=== PATIENT | female | born 1960 | race Caucasian/White ===

== ENCOUNTER → 2017-01-04 | Outpatient (CLI) | payer OTHER ==
[~2017-01-04] MED LIST: IBUP600T26 PO; NORCOTAB PO; OXYB5TA PO; SIMV20TA2 PO; calcium with vit D OR
--- NOTE | 2017-01-08 09:23 | SLEEPCENT ---
DATE OF PROCEDURE: 01/04/2017 ORDERED BY: Gwendolyn Page Nocturnal polysomnography was performed for evaluation of sleep apnea syndrome symptoms in this patient with excessive somnolence and nonrestorative sleep. 7 hours and 18 minutes of data were reviewed. There were 324 minutes of sleep identified. Sleep latency was normal at 12.5 minutes Rapid eye movement (REM) latency was prolonged at 205 minutes. Sleep architecture showed fragmentation. Overall sleep efficiency was 75.8% but there was reduction in REM time. The patient's EKG showed a sinus rhythm with an average heart rate of 64 beats per minute. EEG showed some coarsening and alpha intrusion into non-REM stages. No focal events were seen. There were 39 respiratory events identified of 10 seconds in duration or greater for an apnea-hypopnea index of 6.9. The events were primarily obstructive not stage or positionally related. Arousals from respiratory events occurred 6.1 times per hour and oxygen desaturations were seen into the 80s. There was also significant limb activity. Three trains of 30 events were seen. Limb movement arousal index was borderline at 5.7. IMPRESSION: Mild obstructive sleep apnea syndrome (G47.33). Apnea-hypopnea index 6.9. RECOMMENDATION: Given the oxygen desaturations identified, referral back to the sleep disorder center for pressure therapy is recommended. In the interim, alcohol and sedative avoidance should be practiced and caution exercised during operation of motor vehicles.
== END ==
LOC: M SLEEP 19:54
PROVIDERS: ATTEND Nurse Practitioner Adult Health
DX: G47.30 Sleep apnea, unspecified (principal)

== ENCOUNTER → 2017-01-04 | Outpatient (REF) | payer OTHER | LOC: M SMT 12:58 | PROVIDERS: ATTEND Specialist | DX: N32.81 Overactive bladder (principal) ==

== ENCOUNTER → 2017-01-20 | Outpatient (REF) | payer OTHER | LOC: M LABDRAW1 11:57 | PROVIDERS: ATTEND Orthopaedic Surgery | DX: M75.31 Calcific tendinitis of right shoulder (principal) ==

== ENCOUNTER → 2017-01-28 | Day surgery (SDC) | payer OTHER ==
[~2017-01-28] VITALS: Ht 167.6 cm; Wt 145.1 kg
[~2017-01-28] MED LIST changes: +LIDOCAINE 2% 5ML JELLY UROJET As Ordered ONE; +LIDOCAINE 2% INJ 100 MG/5 ML SDV (FOR ANES.) As Ordered ONE; +LIDOCAINE 2% INJ 100 MG/5 ML SYRINGE As Ordered ONE; +LR 1,000 ML IV ONE; +MIDAZOLAM INJ 2 MG/2 ML VIAL (J2250) As Ordered ONE; +MYRB50TA PO; +PROPOFOL 200 MG/20 ML VIAL As Ordered ONE; +SYNT50TA PO; +VITA100037 PO; +fentaNYL 100 MCG/2 ML INJECTION (J3010) As Ordered ONE
[2017-01-28 16:00] VITALS: BP 141/78
--- NOTE | 2017-01-29 22:12 | RO ---
DATE OF PROCEDURE: 01/28/2017 PREOPERATIVE DIAGNOSIS: Small mesh erosion into the bladder. POSTOPERATIVE DIAGNOSIS: Mesh no longer seen and it is possible that through cystoscopy in the office this allowed that piece to pop out from the distention of the bladder. PROCEDURE: Cystoscopy and hydrodistention. SURGEON: Dr. Tianna Craft ANESTHESIA: MAC. MEDICATIONS: Ancef 2 grams preoperatively. INDICATIONS FOR PROCEDURE: The patient is a 56-year-old female who has been seen for refractory urinary urgency, frequency, urge incontinence, nocturia, nocturnal enuresis. She had a cystoscopy as part of the workup since she had a pelvic prolapse repair in the past. On her right lateral wall on the local cystoscopy, a small mesh extrusion was seen into the bladder it was decided to bring her to the operating room for cystoscopy and removal of this cystoscopically to try first. All options, alternatives, risks, and benefits were discussed with the patient and informed consent was obtained. DESCRIPTION OF PROCEDURE: The patient was brought into the operating room and MAC was given. She was placed in the lithotomy position and careful attention was paid that her pressure points were well padded and protected. She was prepped and draped in the usual fashion. Next, a #21-[place] cystoscope was inserted. The urethra was noted to be open without any evidence of lesions, strictures or erosions and/or extrinsic. Upon entering the bladder, both ureteral orifices were seen. I spent quite a lot of time looking with both the 30 degrees and 70 degrees lens and no longer can see the mesh extrusion, even though I have a picture of it in E clinical. It is possible that through the distending the bladder during a local cystoscopy that this piece of mesh came undone and that this area of the bladder now appears to be healed. I did not even appreciate any abnormal areas of bladder. At this point, I continued to hydrodistend the bladder thinking that this may help with her urgency and urge incontinence even though we were planning on InterStim in the future. She will followup with us to plan the InterStim in the office. She will most likely require local cystoscopy again in the future.
== END ==
LOC: M SDC 11:53
PROVIDERS: ATTEND Specialist
DX: T83.718A Erosion of other implanted mesh to organ or tissue, initial encounter (principal); Y83.1 Surgical operation with implant of artificial internal device as the cause of abnormal reaction of the patient, or of later complication, without mention of misadventure at the time of the procedure; N39.41 Urge incontinence; N39.44 Nocturnal enuresis; R35.0 Frequency of micturition; R35.1 Nocturia; E03.9 Hypothyroidism, unspecified; E78.00 Pure hypercholesterolemia, unspecified; G47.30 Sleep apnea, unspecified; Z88.8 Allergy status to other drugs, medicaments and biological substances; Z79.899 Other long term (current) drug therapy

== ENCOUNTER → 2017-02-07 | Outpatient (CLI) | payer OTHER ==
[~2017-02-07] MED LIST changes: -LIDOCAINE 2% 5ML JELLY UROJET As Ordered ONE; -LIDOCAINE 2% INJ 100 MG/5 ML SDV (FOR ANES.) As Ordered ONE; -LIDOCAINE 2% INJ 100 MG/5 ML SYRINGE As Ordered ONE; -LR 1,000 ML IV ONE; -MIDAZOLAM INJ 2 MG/2 ML VIAL (J2250) As Ordered ONE; -PROPOFOL 200 MG/20 ML VIAL As Ordered ONE; -fentaNYL 100 MCG/2 ML INJECTION (J3010) As Ordered ONE
--- NOTE | 2017-02-09 22:36 | SLEEPCENT ---
DATE OF PROCEDURE: 02/07/2017 REFERRING PHYSICIAN: Gwendolyn Page Nocturnal polysomnography was performed for the titration of pressure therapy in this patient with obstructive sleep apnea syndrome, apnea-hypopnea index of 6.9. For testing, the patient was fit with a ResMed Quattro full face mask of small size. 4 cm of water pressure were applied to the circuit and the lights were extinguished. 8 hours and 24 minutes of data were reviewed. There were 408 minutes of sleep identified. Sleep latency was short at 7.5 minutes. Rapid eye movement (REM) latency was normal at 117 minutes. Sleep architecture improved over the course of the study. There were four to five REM periods appreciated. Overall sleep efficiency was 82%. The patient's EKG showed a sinus rhythm with an average heart rate of 62 beats per minute. EEG showed normal waveforms for awake and sleep. Respiratory events were fully palliated with CPAP at a pressure of +5. Remaining measures of sleep physiology were normal. IMPRESSION: Obstructive sleep apnea syndrome (G47.33). RECOMMENDATION: Nightly use of pressure therapy, 5 cm of water.
== END ==
LOC: M SLEEP 19:35
PROVIDERS: ATTEND Nurse Practitioner Adult Health
DX: G47.33 Obstructive sleep apnea (adult) (pediatric) (principal)

== ENCOUNTER → 2017-03-03 | Outpatient (REF) | payer OTHER ==
[~2017-03-03] MED LIST changes: +IBUP-1022 PO; -IBUP600T26 PO; +KEFL500C17 PO; -OXYB5TA PO; +OXYB5TAB10 PO; -VITA100037 PO; +VITA100067 PO; -calcium with vit D OR; +calcium with vit D PO
[2017-03-03 12:40] LABS: ALBUMIN 3.4 GM/DL (3.2-5.2); ALBUMIN/GLOBULIN RATIO 0.92 (1.00-1.93); ALKALINE PHOSPHATASE 91 U/L (45-117); ALT/SGPT 14 U/L (12-78); ANION GAP 7 MEQ/L (8-16); AST/SGOT 12 U/L (15-37); BILIRUBIN,TOTAL 0.5 MG/DL (0.2-1.0); BLOOD UREA NITROGEN 15 MG/DL (7-18); CALCIUM LEVEL 8.9 MG/DL (8.5-10.1); CARBON DIOXIDE LEVEL 26 MEQ/L (21-32); CHLORIDE LEVEL 110 MEQ/L (98-107); CHOLESTEROL LEVEL 141 MG/DL (<200); CREATININE FOR GFR 0.84 MG/DL (0.55-1.02); GLOMERULAR FILTRATION RATE > 60.0 (>51); GLUCOSE, FASTING 88 MG/DL (70-105); POTASSIUM SERUM 4.1 MEQ/L (3.5-5.1); SODIUM LEVEL 143 MEQ/L (136-145); TOTAL PROTEIN 7.1 GM/DL (6.4-8.2); TRIGLYCERIDES LEVEL 79 MG/DL (<150)
== END ==
LOC: M SFHCCLAY 09:09
PROVIDERS: ATTEND Nurse Practitioner
DX: J06.9 Acute upper respiratory infection, unspecified (principal)

== ENCOUNTER → 2017-03-28 | Outpatient (REF) | payer OTHER ==
[2017-03-28 17:59] LABS: ANION GAP 10 MEQ/L (8-16); BLOOD UREA NITROGEN 22 MG/DL (7-18); CALCIUM LEVEL 8.5 MG/DL (8.5-10.1); CARBON DIOXIDE LEVEL 26 MEQ/L (21-32); CHLORIDE LEVEL 107 MEQ/L (98-107); CREATININE FOR GFR 0.73 MG/DL (0.55-1.02); GLOMERULAR FILTRATION RATE > 60.0 (>51); GLUCOSE, FASTING 89 MG/DL (70-105); POTASSIUM SERUM 4.4 MEQ/L (3.5-5.1); SODIUM LEVEL 143 MEQ/L (136-145)
[2017-03-28 20:04] LABS: INR 1.01
[2017-03-28 20:22] LABS: MEAN CORPUSCULAR HEMOGLOBIN 27.8 pg (27.0-33.0); MEAN CORPUSCULAR HGB CONC 32.1 g/dl (32.0-36.5); MEAN CORPUSCULAR VOLUME 86.5 fl (80.0-96.0); RED CELL DISTRIBUTION WIDTH 14.8 % (11.5-14.5); WHITE BLOOD COUNT 6.7 K/mm3 (4.0-10.0)
== END ==
LOC: M LABSMT 10:49 → M LABDRAWC 11:00
PROVIDERS: ATTEND Specialist
DX: Z01.818 Encounter for other preprocedural examination (principal); N39.41 Urge incontinence; N32.81 Overactive bladder

== ENCOUNTER 2017-04-06 12:58 | Day surgery (SDC) | payer OTHER ==
[~2017-04-06] VITALS: Ht 167.6 cm; Wt 145.1 kg
[~2017-04-06 12:58] MED LIST changes: -KEFL500C17 PO
[2017-04-06] MEDS ORDERED: LR 1,000 ML IV ONE (13:30)
[2017-04-06] MEDS ORDERED: LIDOCAINE 1% SDV INJ 30 ML VIAL As Ordered ONE ×2 (15:41→17:05)
[2017-04-06] MEDS ORDERED: ceFAZolin 1GM INJ (J0690) As Ordered ONE (15:41)
[2017-04-06] MEDS ORDERED: PROPOFOL 200 MG/20 ML VIAL As Ordered ONE (16:17)
[2017-04-06] MEDS ORDERED: fentaNYL 100 MCG/2 ML INJECTION (J3010) As Ordered ONE ×2 (16:17→17:17)
[2017-04-06] MEDS ORDERED: MIDAZOLAM INJ 5 MG/ML VIAL (J2250) As Ordered ONE (16:17)
[2017-04-06] MEDS ORDERED: PERCOCET 5MG/325MG TAB PO ONE (18:30)
--- NOTE | 2017-04-06 18:31 | REP ---
REASON: Incontinence. Fluoroscopy time: 48 seconds. Two spot view of the sacral region were obtained in my absentia. There is curvilinear radiodensity in the pelvis entering from the posterior to the right of the midline. Signed by Alton Perez DO 04/06/2017 06:59 P
[2017-04-06 19:20] VITALS: BP 136/73
--- NOTE | 2017-04-07 21:08 | RO ---
DATE OF PROCEDURE: 04/06/2017 PREOPERATIVE DIAGNOSES: Severe urinary urgency and urge incontinence refractory to medical management. POSTOPERATIVE DIAGNOSES: Severe urinary urgency and urge incontinence refractory to medical management. PROCEDURE: Stage 1 of the InterStim device with placement of a neurostimulator lead on the left side, cystoscopy. SURGEON: Dr. Tianan Craft ANESTHESIA: Local with some IV sedation. MEDICATIONS: Ancef 2 grams preoperatively. DRAINS: None. FINDINGS: The patient had excellent anal bellowing and first toe movement at low thresholds in the operating room. INDICATIONS FOR PROCEDURE: The patient is a 56-year-old female with a longstanding history of urinary urgency and urge incontinence, which has been refractory to behavioral modification and medical management. We did an InterStim test in the office, but this did not work and she chose to come to the operating room for a staged procedure to see if this would any better. There was a question of mesh erosion on a cystoscopy on 01/12, but when she was brought to the operating room this was no longer visualized and we had decided to repeat cystoscopy today to make sure that no erosions in the bladder were seen. The patient has had urodynamic studies in June of 2016 which showed poor detrusor contractility, although she was able to empty completely. She did not like the risks of intravesical Botox and the possibility of needing a Cardenas catheter in the future so it was decided to proceed with the InterStim. PROCEDURE: The patient was brought into the operating room. Sequential compression devices and ELIAS stockings were in place. Next, she was placed in the lithotomy position and prepped and draped in the usual fashion. A 21-Macedonian cystoscope was inserted. The urethra was noted to be open without any evidence of lesions or strictures. Upon entering the bladder, both ureteral orifices were seen. There was no evidence of stones, erythematous patches, lesions, or foreign bodies. At this point, her bladder was emptied. She was then placed back on the stretcher and then placed back on the operating room table in the prone position. Careful attention was paid that her pressure points were well padded and protected. Next, she was prepped and draped in the usual fashion. 1% lidocaine was utilized for local anesthesia and using fluoroscopy we were able to Rex her midline spine and where her sacral notches were to know approximately where the S3 foramens were. At this point, I then placed the long needles first starting on the right hand side and was able to get into what looks like the S3 foramen, but we did not get very good bellowing or first tone movement until very high thresholds. We therefore decided to go to the right hand side. I was able to place a needle into what appeared to be the S3 foramen and we got excellent anal bellowing and first toe movement at very low levels. The needle appeared to be in very good placement on both the AP and lateral views. At this point a small incision was made and using the Seldinger technique the permanent neurostimulator lead was placed. This was then tested at 0, 1, 2 and 3 and had excellent bellowing and first toe movement on all four leads. The permanent lead was then tunneled across to the right upper buttocks and was attached to another lead which was then tunneled and removed separately. The incision was closed using viridiana. The patient's device was programmed and she will be seen in the office back on this Tuesday to see how the stage I has done. The patient tolerated the procedure well and was returned to the recovery room in stable condition.
== END 2017-04-06 19:25 | disposition home or self-care (01) ==
LOC: M SDC 12:58
PROVIDERS: ATTEND Specialist
DX: N39.41 Urge incontinence (principal); N32.81 Overactive bladder; E78.5 Hyperlipidemia, unspecified; E03.9 Hypothyroidism, unspecified; E55.9 Vitamin D deficiency, unspecified; G47.30 Sleep apnea, unspecified; Z79.899 Other long term (current) drug therapy; Z88.8 Allergy status to other drugs, medicaments and biological substances; Z91.048 Other nonmedicinal substance allergy status
CPT/HCPCS: 64581; 77002; C1767

== ENCOUNTER 2017-04-11 12:22 | Day surgery (SDC) | payer OTHER ==
[~2017-04-11] VITALS: Ht 167.6 cm; Wt 145.1 kg
[2017-04-11] MEDS ORDERED: LR 1,000 ML IV ONE (12:45)
[2017-04-11] MEDS ORDERED: PROPOFOL 200 MG/20 ML VIAL As Ordered ONE (16:32)
[2017-04-11] MEDS ORDERED: LIDOCAINE 2% INJ 100 MG/5 ML SDV (FOR ANES.) As Ordered ONE (16:32)
[2017-04-11] MEDS ORDERED: dexameTHASONE 4 MG/ML 1ML VIAL (J1100) As Ordered ONE (16:33)
[2017-04-11] MEDS ORDERED: ONDANSETRON 4MG/2ML VIAL (J2405) As Ordered ONE (16:33)
[2017-04-11] MEDS ORDERED: KETOROLAC 60 MG/2 ML VIAL (J1885) As Ordered ONE (16:33)
[2017-04-11] MEDS ORDERED: fentaNYL 100 MCG/2 ML INJECTION (J3010) As Ordered ONE (16:34)
[2017-04-11] MEDS ORDERED: MIDAZOLAM INJ 2 MG/2 ML VIAL (J2250) As Ordered ONE (16:34)
[2017-04-11] MEDS ORDERED: LIDOCAINE 1% SDV INJ 30 ML VIAL As Ordered ONE (16:35)
[2017-04-11] MEDS ORDERED: BACITRACIN PWD 50,000 UNITS VIAL As Ordered ONE (17:11)
[2017-04-11] MEDS ORDERED: KEFL500C17 PO (18:07)
[2017-04-11 18:15] VITALS: BP 157/70
--- NOTE | 2017-04-11 23:16 | RO ---
DATE OF PROCEDURE: 04/11/2017 PREOPERATIVE DIAGNOSIS: Urinary urgency, frequency and urge incontinence. POSTOPERATIVE DIAGNOSIS: Urinary urgency, frequency and urge incontinence. PROCEDURE: Stage II with InterStim with placement of an implantable pulse generator. SURGEON: Dr. Tianna Craft TECHNICIAN'S HELPER: None. ANESTHESIA: Local with some IV sedation. MEDICATIONS: Ancef 2 grams preoperatively. INDICATIONS FOR PROCEDURE: The patient is a 56-year-old female who underwent stage I InterStim in the operating room on 04/06/2017. She found that she was voiding much less frequently during the day and her incontinence episodes were less than 50% of what they were. She still had some nocturia last night, but the other night it was down to two times. She was feeling the stimulation in the vaginal area. At this point, she had decided that she wanted to proceed with stage II, which was placement of the implantable pulse generator. All options, alternatives, risks and benefits was discussed and informed consent was obtained. DESCRIPTION OF PROCEDURE: The patient was brought into the operating room. Sequential compression devices were in place. She was placed in the prone position and prepped and draped in the usual fashion after the viridiana had been removed. Next, 1% lidocaine was injected over her right upper buttocks and an incision was made over the previous incision making it slightly larger for the implantable pulse generator to fit. At this point the neurostimulator electrode was found and the percutaneous connection of was removed. The implantable pulse generator was then placed onto the neurostimulator electrode and screwed into place. Castro retractors were utilized to go down gluteal fascia. A pocket was made over gluteal fascia for the implantable pulse generator and this was put into place. Copious antibiotic irrigation was utilized and subcuticular tissue was closed using a #2-0 chromic suture and skin was closed using viridiana. The implantable pulse general generator was flat to the gluteal fascia without room for movements and subcutaneous tissue was closed right over this. Once the viridiana were placed, a Band-Aid was placed and the patient was returned to the recovery room in stable condition. Impedance was also done on the implantable pulse generator and was within normal limits and the [place] [facility] representative will be programming the device prior to her discharge.
== END 2017-04-11 18:30 | disposition home or self-care (01) ==
LOC: M SDC 12:22
PROVIDERS: ATTEND Specialist
DX: N39.46 Mixed incontinence (principal); R35.0 Frequency of micturition; E03.9 Hypothyroidism, unspecified; E78.5 Hyperlipidemia, unspecified; E55.9 Vitamin D deficiency, unspecified; G47.30 Sleep apnea, unspecified; Z79.899 Other long term (current) drug therapy; Z88.8 Allergy status to other drugs, medicaments and biological substances; Z91.048 Other nonmedicinal substance allergy status
CPT/HCPCS: 64590; C1767; C1787

== ENCOUNTER → 2017-05-03 | Outpatient (REF) | payer OTHER ==
[~2017-05-03] MED LIST changes: +KEFL500C17 PO
== END ==
LOC: M SFHCCLAY 14:35
PROVIDERS: ATTEND Nurse Practitioner
DX: R35.0 Frequency of micturition (principal)

== ENCOUNTER → 2017-07-08 | Outpatient (CLI) | payer OTHER ==
--- NOTE | 2017-07-08 12:56 | REP ---
Digital screening bilateral mammography with CAD: Comparison mammography July 02, 2016, June 05, 2015, and January 07, 2014. Mammographic findings: There are two needle biopsy marker clips again seen projecting in the left breast. Each of these is adjacent to a stable nodule. No other significant abnormality is seen on the left. On the right, there is a grouping of microcalcifications projecting in the inferior and lateral quadrant of the right breast, which is becoming more numerous. These merit further evaluation. Diagnostic right breast mammography is recommended. The right breast is otherwise unchanged. Impression: BIRADS category 0 incomplete. Additional imaging and/or prior images needed. Grouping of microcalcifications inferiorly and lateral in the right breast merits further evaluation. Diagnostic right breast mammography recommended. BI-RADS/ACR category 0 mammogram, incomplete. Additional imaging and/or prior mammograms for comparison. This mammogram was interpreted with the aid of an FDA-approved computer-aided detection system. The patient states she/he had a clinical breast exam in April 2017. The patient letter being requested is m# 0.
== END ==
LOC: M WHC 10:01
PROVIDERS: ATTEND Nurse Practitioner Women's Health
DX: Z12.31 Encounter for screening mammogram for malignant neoplasm of breast (principal); R92.0 Mammographic microcalcification found on diagnostic imaging of breast

== ENCOUNTER → 2017-07-13 | Outpatient (CLI) | payer OTHER ==
--- NOTE | 2017-07-13 10:01 | REP ---
DIAGNOSTIC MAMMOGRAM RIGHT BREAST: Multiple magnification views of the right breast are performed. Correlation made with recent mammogram of 07/08/2017 and compared to multiple other prior exams. There are increasing tiny calcifications posteriorly and inferiorly in the right breast. Several faint, tiny calcifications appear new laterally in this cluster, best seen on the magnified CC view. Stereotactic biopsy is recommended. This may prove difficult due to their posterior location. IMPRESSION: ACR 4 suspicious. Increasing tiny pleomorphic microcalcifications posteriorly and inferiorly in the right breast. Recommend stereotactic biopsy. This may prove difficult due to their posterior location. BI-RADS/ACR category 4 mammogram. Suspicious abnormality - biopsy should be considered. Usually requires biopsy. This mammogram was interpreted with the aid of an FDA-approved computer-aided detection system. A. Negative x-ray reports should not delay biopsy if a dominant or clinically suspicious mass is present. B. Four to eight percent of cancers are not identified by x-ray. C. Adenosis and dense breasts may obscure an underlying neoplasm. The patient letter being requested is M4. Signed by Gabriele Almonte MD 07/13/2017 11:48 A
== END ==
LOC: M RAD 08:02
PROVIDERS: ATTEND Nurse Practitioner Women's Health
DX: Z12.31 Encounter for screening mammogram for malignant neoplasm of breast (principal)

== ENCOUNTER → 2017-07-28 | Outpatient (CLI) | payer OTHER ==
[~2017-07-28] MED LIST changes: +LIDOCAINE 1% MDV 20ML VIAL As Ordered ONE
== END ==
LOC: M RADPRO 12:51
PROVIDERS: ATTEND Surgery
DX: R92.0 Mammographic microcalcification found on diagnostic imaging of breast (principal); Z53.9 Procedure and treatment not carried out, unspecified reason

== ENCOUNTER → 2017-09-06 | Outpatient (REF) | payer OTHER ==
[2017-09-06 11:48] LABS: BASO # 0.1 10^3/uL (0.0-0.2); BASO % 0.9 % (0.0-1.0); EOS # 0.3 10^3/uL (0.0-0.50); HEMATOCRIT 37.7 % (36.0-47.0); IMMATURE GRANULOCYTE % 0.3 % (0-0); LYMPH % 28.1 % (24.0-44.0); MEAN CORPUSCULAR HEMOGLOBIN 27.1 pg (27.0-33.0); MEAN CORPUSCULAR HGB CONC 31.8 g/dl (32.0-36.5); MEAN CORPUSCULAR VOLUME 85.1 fl (80.0-96.0); MONO # 0.6 10^3/uL (0.0-0.8); MONO % 7.9 % (0.0-5.0); NEUTROPHILS # 4.1 10^3/uL (1.8-7.7); NEUTROPHILS % 58.8 % (36.0-66.0); PLATELET COUNT, AUTOMATED 262 10^3/uL (150-450); RED BLOOD COUNT 4.43 10^6/uL (4.00-5.40); RED CELL DISTRIBUTION WIDTH 14.9 % (11.5-14.5)
[2017-09-06 12:12] LABS: ALBUMIN 3.2 GM/DL (3.2-5.2); ALBUMIN/GLOBULIN RATIO 0.86 (1.00-1.93); ALKALINE PHOSPHATASE 90 U/L (45-117); ALT/SGPT 14 U/L (12-78); ANION GAP 9 MEQ/L (8-16); AST/SGOT 18 U/L (7-37); BILIRUBIN,TOTAL 0.5 MG/DL (0.2-1.0); BLOOD UREA NITROGEN 17 MG/DL (7-18); CALCIUM LEVEL 8.4 MG/DL (8.5-10.1); CARBON DIOXIDE LEVEL 27 MEQ/L (21-32); CHLORIDE LEVEL 108 MEQ/L (98-107); CHOLESTEROL LEVEL 163 MG/DL (<200); CHOLESTEROL RISK RATIO 2.672 (<5); CREATININE FOR GFR 0.69 MG/DL (0.55-1.02); FREE T4 1.25 NG/DL (0.76-1.46); GLOMERULAR FILTRATION RATE > 60.0 (>51); GLUCOSE, FASTING 83 MG/DL (70-105); HDL CHOLESTEROL 61 MG/DL (>40); LDL CHOLESTEROL 83.6 MG/DL (<100); NON-HDL-C 102 MG/DL; SODIUM LEVEL 144 MEQ/L (136-145); TOTAL PROTEIN 6.9 GM/DL (6.4-8.2); TRIGLYCERIDES LEVEL 92 MG/DL (<150)
[2017-09-06 12:17] LABS: TOTAL 25(OH) VITAMIN D 42.3 NG/ML (30.0-100.0)
== END ==
LOC: M SFHCCLAY 09:15
DX: E78.5 Hyperlipidemia, unspecified (principal); E03.9 Hypothyroidism, unspecified; N32.81 Overactive bladder; E55.9 Vitamin D deficiency, unspecified
CPT/HCPCS: 84443

== ENCOUNTER → 2017-12-12 | Outpatient (REF) | payer OTHER | LOC: M SFHCCLAY 11:54 | DX: R35.0 Frequency of micturition (principal) | CPT/HCPCS: 87186 ==

== ENCOUNTER → 2018-03-30 | Outpatient (REF) | payer OTHER | LOC: M SFHCCLAY 14:10 | DX: R35.0 Frequency of micturition (principal) | CPT/HCPCS: 87186 ==

== ENCOUNTER → 2018-06-09 | Outpatient (REF) | payer OTHER | LOC: M SMT 17:01 | DX: N32.81 Overactive bladder (principal) | CPT/HCPCS: 87086 ==

== ENCOUNTER → 2018-08-15 | Outpatient (REF) | payer OTHER ==
[~2018-08-15] MED LIST changes: -LIDOCAINE 1% MDV 20ML VIAL As Ordered ONE
[2018-08-15 18:00] LABS: AMORPHOUS SEDIMENT LARGE (NEGATIVE); BACTERIA, URINE AUTO NEGATIVE (NEGATIVE); RBC, URINE AUTO 0 /HPF (0-3); SQUAMOUS EPITHELIAL CELL UR AU 3 /HPF (0-6); WBC, URINE AUTO 1 /HPF (0-3)
== END ==
LOC: M SMT 17:14
PROVIDERS: ATTEND Specialist
DX: N39.41 Urge incontinence (principal)

== ENCOUNTER → 2018-08-23 | Outpatient (CLI) | payer OTHER ==
--- NOTE | 2018-08-23 11:59 | REP ---
BILATERAL MAMMOGRAM WITH 3D TOMOSYNTHESIS AND DIAGNOSTIC MAMMOGRAM RIGHT BREAST: Bilateral mammography performed in the MLO and CC projections with 3D tomosynthesis. Comparison made with multiple prior exams, most recently 02/24/2018 and 07/13/2017. [facility] lifetime risk of breast cancer 12.8%. Mild scattered fibroglandular tissue is stable. Two nodules in the left breast remain stable both containing metallic biopsy marking clips from prior benign biopsies. Once again, there are tiny microcalcifications seen posteriorly and centrally in the right breast. These are essentially unchanged when compared to the prior studies of 02/24/2018 and 07/28/2017. No new mass or microcalcifications have developed. There are benign-appearing axillary lymph nodes bilaterally. IMPRESSION: BI-RADS/ACR category 4 mammogram. Suspicious abnormality - biopsy should be considered. Usually requires biopsy. ACR 4 suspicious. Persistent microcalcifications posteriorly and centrally in the right breast remain unchanged for approximately 1 year but, again, since they are new compared to the 2016 exam, they are still felt to be suspicious and ACR category 4. Again, if excisional biopsy is not desired, repeat mammography right breast is recommended in 6 months. This mammogram was interpreted with the aid of an FDA-approved computer-aided detection system. The patient states she/he had a clinical breast exam in 02/2018. The patient letter being requested is M4. Electronically Signed by Gabriele Almonte MD 08/23/2018 12:56 P
== END ==
LOC: M RAD 09:35
PROVIDERS: ATTEND Nurse Practitioner Women's Health
DX: R92.0 Mammographic microcalcification found on diagnostic imaging of breast (principal); R92.8 Other abnormal and inconclusive findings on diagnostic imaging of breast
CPT/HCPCS: 77066; G0279

== ENCOUNTER → 2018-09-07 | Outpatient (REF) | payer OTHER ==
[2018-09-07 16:44] LABS: BASO # 0.1 10^3/uL (0.0-0.2); BASO % 1.1 % (0.0-1.0); EOS # 0.2 10^3/uL (0.0-0.50); EOS % 3.4 % (0.0-3.0); HEMATOCRIT 38.4 % (36.0-47.0); HEMOGLOBIN 11.8 g/dl (12.0-15.5); LYMPH # 1.9 10^3/uL (1.5-4.5); LYMPH % 29.6 % (24.0-44.0); MEAN CORPUSCULAR HEMOGLOBIN 27.6 pg (27.0-33.0); MEAN CORPUSCULAR HGB CONC 30.7 g/dl (32.0-36.5); MEAN CORPUSCULAR VOLUME 89.7 fl (80.0-96.0); MONO # 0.5 10^3/uL (0.0-0.8); MONO % 7.6 % (0.0-5.0); NEUTROPHILS # 3.7 10^3/uL (1.8-7.7); PLATELET COUNT, AUTOMATED 220 10^3/uL (150-450); RED BLOOD COUNT 4.28 10^6/uL (4.00-5.40); WHITE BLOOD COUNT 6.4 10^3/uL (4.0-10.0)
[2018-09-07 16:56] LABS: ALBUMIN 3.4 GM/DL (3.2-5.2); ALT/SGPT 11 U/L (12-78); BILIRUBIN,TOTAL 0.3 MG/DL (0.2-1.0); BLOOD UREA NITROGEN 22 MG/DL (7-18); CALCIUM LEVEL 8.5 MG/DL (8.5-10.1); CARBON DIOXIDE LEVEL 27 MEQ/L (21-32); CHLORIDE LEVEL 109 MEQ/L (98-107); CHOLESTEROL LEVEL 172 MG/DL (<200); CHOLESTEROL RISK RATIO 2.915 (<5); CREATININE FOR GFR 0.87 MG/DL (0.55-1.30); FREE T4 1.07 NG/DL (0.76-1.46); GLOMERULAR FILTRATION RATE > 60.0 (>51); GLUCOSE, FASTING 84 MG/DL (70-100); HDL CHOLESTEROL 59 MG/DL (>40); LDL CHOLESTEROL 96 MG/DL (<100); NON-HDL-C 113 MG/DL; POTASSIUM SERUM 4.7 MEQ/L (3.5-5.1); SODIUM LEVEL 142 MEQ/L (136-145); TOTAL PROTEIN 6.8 GM/DL (6.4-8.2); TRIGLYCERIDES LEVEL 83 MG/DL (<150)
[2018-09-07 17:16] LABS: BACTERIA, URINE AUTO 1+ (NEGATIVE); RBC, URINE AUTO 1 /HPF (0-3); SQUAMOUS EPITHELIAL CELL UR AU 1 /HPF (0-6); WBC, URINE AUTO 1 /HPF (0-3)
== END ==
LOC: M SFHCCLAY 10:28
PROVIDERS: ATTEND Nurse Practitioner Family
DX: N32.81 Overactive bladder (principal); E03.9 Hypothyroidism, unspecified; E78.5 Hyperlipidemia, unspecified; N39.0 Urinary tract infection, site not specified

== ENCOUNTER → 2018-10-11 | Outpatient (REF) | payer OTHER | LOC: M SFHCCLAY 16:07 | PROVIDERS: ATTEND Nurse Practitioner Family | DX: R50.9 Fever, unspecified (principal) ==

== ENCOUNTER → 2018-11-06 | Outpatient (CLI) | payer OTHER ==
--- NOTE | 2018-11-07 02:38 | REP ---
Clinical: Bronchitis . Comparison: None . Technique: PA and lateral. Findings: The mediastinum and cardiac silhouette are normal. The lung gutiérrez are clear and without acute consolidation, effusion, or pneumothorax. The skeletal structures are intact and normal. Impression: 1. No acute cardiopulmonary process.
== END ==
LOC: M CLY 08:37
PROVIDERS: ATTEND Nurse Practitioner Family
DX: J40 Bronchitis, not specified as acute or chronic (principal)

== ENCOUNTER → 2018-11-06 | Outpatient (REF) | payer OTHER ==
[2018-11-06 12:06] LABS: BASO # 0.1 10^3/uL (0.0-0.2); BASO % 0.8 % (0.0-1.0); BLOOD UREA NITROGEN 21 MG/DL (7-18); CALCIUM LEVEL 9.2 MG/DL (8.5-10.1); CARBON DIOXIDE LEVEL 29 MEQ/L (21-32); CHLORIDE LEVEL 106 MEQ/L (98-107); CREATININE FOR GFR 0.88 MG/DL (0.55-1.30); EOS # 0.2 10^3/uL (0.0-0.50); EOS % 2.4 % (0.0-3.0); GLOMERULAR FILTRATION RATE > 60.0 (>51); GLUCOSE, FASTING 113 MG/DL (70-100); HEMATOCRIT 38.6 % (36.0-47.0); LYMPH # 2.6 10^3/uL (1.5-4.5); LYMPH % 28.3 % (24.0-44.0); MEAN CORPUSCULAR HEMOGLOBIN 27.3 pg (27.0-33.0); MEAN CORPUSCULAR HGB CONC 31.1 g/dl (32.0-36.5); MEAN CORPUSCULAR VOLUME 87.7 fl (80.0-96.0); MONO # 0.9 10^3/uL (0.0-0.8); MONO % 9.9 % (0.0-5.0); NEUTROPHILS # 5.2 10^3/uL (1.8-7.7); NEUTROPHILS % 58.2 % (36.0-66.0); PLATELET COUNT, AUTOMATED 298 10^3/uL (150-450); POTASSIUM SERUM 3.9 MEQ/L (3.5-5.1); SODIUM LEVEL 142 MEQ/L (136-145)
== END ==
LOC: M SFHCCLAY 08:30
PROVIDERS: ATTEND Nurse Practitioner Family
DX: J40 Bronchitis, not specified as acute or chronic (principal)

== ENCOUNTER → 2018-11-29 | Outpatient (REF) | payer OTHER ==
[~2018-11-29] MED LIST changes: +HYDR-3715 PO; -NORCOTAB PO
== END ==
LOC: M SFHCCLAY 11:36
PROVIDERS: ATTEND Nurse Practitioner Family
DX: R35.0 Frequency of micturition (principal)

== ENCOUNTER → 2019-01-02 | Outpatient (REF) | payer OTHER ==
[2019-01-02 14:34] LABS: BACTERIA, URINE AUTO NEGATIVE (NEGATIVE); MUCUS, URINE SMALL (NEGATIVE); RBC, URINE AUTO 11 /HPF (0-3); SQUAMOUS EPITHELIAL CELL UR AU 0 /HPF (0-6); WBC, URINE AUTO 3 /HPF (0-3)
== END ==
LOC: M SMT 13:31
PROVIDERS: ATTEND Specialist
DX: N32.81 Overactive bladder (principal)

== ENCOUNTER → 2019-01-23 | Outpatient (REF) | payer OTHER ==
[~2019-01-23] MED LIST changes: +CALC1TAB29 PO; +METH-855 PO; +RANI150T PO; +TIZA4CAP PO; +VITA500054 PO
[2019-01-24 12:12] LABS: AMORPHOUS SEDIMENT LARGE (NEGATIVE); APPEARANCE, URINE TURBID (CLEAR); BACTERIA, URINE AUTO 1+ (NEGATIVE); BILIRUBIN, URINE AUTO NEGATIVE (NEGATIVE); BLOOD, URINE BLOOD 1+ (NEGATIVE); COLOR, URINE AMBER (YELLOW); GLUCOSE, URINE (UA) AUTO NEGATIVE (NEGATIVE); KETONE, URINE AUTO NEGATIVE (NEGATIVE); LEUKOCYTE ESTERASE, URINE AUTO TRACE (NEGATIVE); MUCUS, URINE SMALL (NEGATIVE); NITRITE, URINE AUTO NEGATIVE (NEGATIVE); PROTEIN, URINE AUTO NEGATIVE (NEGATIVE); RBC, URINE AUTO 1 /HPF (0-3); SPECIFIC GRAVITY URINE AUTO 1.025 (1.002-1.035); SQUAMOUS EPITHELIAL CELL UR AU 6 /HPF (0-6); UROBILINOGEN, URINE AUTO 0.2 mg/dL (0.0-2.0); WBC, URINE AUTO 11 /HPF (0-3)
== END ==
LOC: M LABSMT 15:41
PROVIDERS: ATTEND Specialist
DX: N39.0 Urinary tract infection, site not specified (principal)

== ENCOUNTER → 2019-01-26 | Outpatient (REF) | payer OTHER ==
[2019-01-26 18:53] LABS: BACTERIA, URINE AUTO NEGATIVE (NEGATIVE); RBC, URINE AUTO 0 /HPF (0-3); SQUAMOUS EPITHELIAL CELL UR AU 0 /HPF (0-6); WBC, URINE AUTO 0 /HPF (0-3)
== END ==
LOC: M SMT 17:00
PROVIDERS: ATTEND Specialist
DX: N39.41 Urge incontinence (principal)

== ENCOUNTER 2019-01-29 07:59 | Day surgery (SDC) | payer OTHER ==
[~2019-01-29] VITALS: Ht 167.6 cm; Wt 152.4 kg
[~2019-01-29 07:59] MED LIST changes: +LR 1,000 ML IV ONE
[2019-01-29] MEDS ORDERED: ONDANSETRON 4MG/2ML VIAL (J2405) As Ordered ONE (10:04)
[2019-01-29] MEDS ORDERED: PROPOFOL 200 MG/20 ML VIAL As Ordered ONE (10:05)
[2019-01-29] MEDS ORDERED: dexameTHASONE 4 MG/ML 1ML VIAL (J1100) As Ordered ONE (10:05)
[2019-01-29] MEDS ORDERED: LIDOCAINE 2% INJ 100 MG/5 ML SDV (FOR ANES.) As Ordered ONE (10:05)
[2019-01-29] MEDS ORDERED: MIDAZOLAM INJ 2 MG/2 ML VIAL (J2250) As Ordered ONE (10:09)
[2019-01-29] MEDS ORDERED: fentaNYL 100 MCG/2 ML INJECTION (J3010) As Ordered ONE (10:09)
[2019-01-29] MEDS ORDERED: BUPIVACAINE/EPIN 0.25% 30 ML VIAL As Ordered ONE ×2 (11:16→11:42)
[2019-01-29] MEDS ORDERED: BACITRACIN PWD 50,000 UNITS VIAL As Ordered ONE (11:18)
[2019-01-29 12:52] VITALS: BP 152/64
--- NOTE | 2019-01-30 07:34 | RO ---
DATE OF PROCEDURE: 01/29/2019 PREOPERATIVE DIAGNOSIS: InterStim device, that the patient is unsatisfied with and also she needs an MRI of her knee. POSTOPERATIVE DIAGNOSIS: InterStim device, that the patient is unsatisfied with and also she needs an MRI of her knee. PROCEDURE: Removal of InterStim device and removal of neurostimulator electrode. SURGEON: Dr. Tianna Craft GUIDE EXCURSION: ANESTHESIA: IV sedation with local. MEDICATIONS: Ancef 2 grams preoperatively. DRAINS: None. FINDINGS: Possibility that the wire was slightly frayed, although she did have adjusted suggested by the InterStim enrollment representative not long ago. INDICATIONS FOR PROCEDURE: Aide is a 58-year-old female who had an InterStim device placed April 11, 2017 for urinary urgency, frequency, and urge incontinence, which had been refractory to medical management. With the InterStim device in, originally it was working well with Myrbetriq 50 mg but then she began having significant urge incontinence, again requiring her to change her pads multiple times a day. She did meet with the [facility] enrollment representative and they adjusted her InterStim settings and she was feeling the device vaginally. Unfortunately, she continued to have urge incontinence. Recently, she has been having severe knee pain and also needs an MRI but cannot have it done with the InterStim in place. The patient feels that the InterStim has not been helping well and we have had her turn it off to see of there was any difference with it on and off and she really said she has not noticed much of a difference wanted the device removed. Informed consent was obtained in both verbal and written form. DESCRIPTION OF PROCEDURE: The patient was brought into the operating room. Sequential compression devices were in place and preoperative antibiotics were given. IV sedation was done and the patient was placed in the prone position. She was prepped and draped in the usual fashion. 0.25% Marcaine with epinephrine was then injected over the right upper buttocks where the InterStim device was and then also over where the neurostimulator electrode went in just to the left of midline. Using a 10 blade, skin was opened and then a Bovie to get down to the InterStim device. The InterStim device was removed out of the right upper buttocks and it appeared that the lead might have frayed off of this but it is possible that I also cut it or broke it while trying to remove the device since Aide is quite large and the device was very far down and encapsulated and it took a while to be able to free it completely. I did free it completely and then was able to remove the entire neurostimulator quadripolar electrode also using the midline incision. Copious antibiotic irrigation was then utilized and subcutaneous tissue was closed using #2-0 chromic suture and then skin was closed using viridiana. The patient tolerated the procedure well and was returned to recovery room in stable condition.
== END 2019-01-29 12:53 | disposition home or self-care (01) ==
LOC: M SDC 07:59
PROVIDERS: ATTEND Specialist
DX: T85.192A Other mechanical complication of implanted electronic neurostimulator of spinal cord electrode (lead), initial encounter (principal); T85.695A Other mechanical complication of other nervous system device, implant or graft, initial encounter; Z45.42 Encounter for adjustment and management of neurostimulator; E78.5 Hyperlipidemia, unspecified; E03.9 Hypothyroidism, unspecified; G47.30 Sleep apnea, unspecified; Z79.899 Other long term (current) drug therapy
CPT/HCPCS: 64585; 64595; J0690; J1100; J2250; J2405; J3010

== ENCOUNTER → 2019-02-26 | Outpatient (CLI) | payer OTHER ==
[~2019-02-26] MED LIST changes: -LR 1,000 ML IV ONE
--- NOTE | 2019-02-26 12:51 | REP ---
DIAGNOSTIC MAMMOGRAM RIGHT BREAST: Mammogram right breast performed in the MLO and CC projections with 3D tomosynthesis. Additional magnification views are performed. Comparison made with prior studies, most recent of which is 08/23/2018. There is a family history of breast cancer in paternal cousin under age 50. [facility] lifetime risk of breast cancer 12.5%. Mild scattered fibroglandular tissue is unchanged. There is no new mass or architectural distortion. Magnification views of tiny calcifications in the posterior central right breast showed a few of the calcification originally seen on the examination of 02/24/2018 are no longer present. The remaining calcifications are not definitely clustered in a suspicious manner. These are probably benign. IMPRESSION: BIRADS 3: BI-RADS/ACR category 3 mammogram. Probably Benign Findings. ACR 3 probably benign. Followup diagnostic mammogram of the right breast includes magnification views and these views demonstrate that a few of the calcifications originally seen on the prior studies of 07/13/2017 and 02/24/2018 are no longer present. Remaining calcifications do not appear to be clustered in a suspicious fashion. They are probably benign. Recommend followup bilateral mammogram in July 2019, including magnification views of the right breast. This mammogram was interpreted with the aid of an FDA-approved computer-aided detection system. The patient states that she or he has not had a clinical breast exam in over a year. Patient letter requested is M3. Electronically Signed by Gabriele Almonte MD 02/26/2019 04:25 P
== END ==
LOC: M RAD 10:31
PROVIDERS: ATTEND Surgery
DX: R92.1 Mammographic calcification found on diagnostic imaging of breast (principal)
CPT/HCPCS: 77065; G0279

== ENCOUNTER → 2019-04-10 | Outpatient (REF) | payer OTHER ==
[~2019-04-10] MED LIST changes: +CHLO125TA PO; +OXYB10TA2 PO
[2019-04-10 16:58] LABS: BLOOD UREA NITROGEN 15 MG/DL (7-18); CALCIUM LEVEL 9.2 MG/DL (8.5-10.1); CARBON DIOXIDE LEVEL 29 MEQ/L (21-32); CHLORIDE LEVEL 105 MEQ/L (98-107); CREATININE FOR GFR 0.82 MG/DL (0.55-1.30); GLOMERULAR FILTRATION RATE > 60.0 (>51); GLUCOSE, FASTING 89 MG/DL (70-100); POTASSIUM SERUM 3.7 MEQ/L (3.5-5.1); SODIUM LEVEL 142 MEQ/L (136-145)
== END ==
LOC: M SFHCCLAY 10:50
PROVIDERS: ATTEND Nurse Practitioner Family
DX: I10 Essential (primary) hypertension (principal)

== ENCOUNTER → 2019-04-20 | Outpatient (CLI) | payer OTHER ==
[~2019-04-20] MED LIST changes: -OXYB10TA2 PO; +OXYB10TA23 PO; -SIMV20TA2 PO; +SIMV20TA22 PO
--- NOTE | 2019-04-20 14:04 | REP ---
BILATERAL LOWER EXTREMITY DUPLEX DOPPLER VENOUS ULTRASOUND WITH EVALUATION FOR VENOUS REFLUX: Real-time compression and duplex Doppler interrogation of bilateral lower extremity deep venous systems is performed. Bilaterally, common femoral, superficial femoral, and popliteal veins are fully compressible with transducer pressure and demonstrate normal spontaneous and phasic flow without evidence of deep venous thrombosis. Evaluation for venous reflux on the right shows minimal reflux in the right common femoral and superficial femoral veins with no reflux in the right popliteal vein. There is no reflux in any portion of the greater saphenous vein, which measures 6 mm at the saphenofemoral junction, 5 mm in the mid thigh, and 4 mm at the knee. There is no reflux in the lesser saphenous vein which measures 3 mm. Scanning was performed with the bed tipped as the patient could not tolerate standing. On the left there is minimal reflux in the common femoral and superficial femoral veins with no reflux in the popliteal vein. There is an anterior aces greater saphenous vein present on the left. There is no reflux at any portion of the greater saphenous vein, which measures 6 mm at the saphenofemoral junction, 4 mm at the mid thigh and 5 mm at the knee. There is no reflux in the lesser saphenous vein which measures 3 mm. The left side was evaluated in the standing position with somewhat stagnant flow in the superficial system, but again no reflux. There is a lesser degree of reflux in the deep system in the standing position. Electronically Signed by Gabriele Almonte MD 04/22/2019 10:53 P
== END ==
LOC: M RAD 11:21
PROVIDERS: ATTEND Nurse Practitioner Family
DX: R60.9 Edema, unspecified (principal)

== ENCOUNTER 2019-04-24 11:45 | Day surgery (SDC) | payer OTHER ==
[~2019-04-24] VITALS: Ht 167.6 cm; Wt 151.5 kg
[~2019-04-24 11:45] MED LIST changes: +LR 1,000 ML IV ONE; +OXYB10TA2 PO; -OXYB10TA23 PO; +SIMV20TA2 PO; -SIMV20TA22 PO; +ceFAZolin SOD 1 GM in D5W MINI-BAG PLUS 50 ML IV ONE
[2019-04-24] MEDS ORDERED: LIDOCAINE 2% INJ 100 MG/5 ML SDV (FOR ANES.) As Ordered ONE (14:14)
[2019-04-24] MEDS ORDERED: MIDAZOLAM INJ 2 MG/2 ML VIAL (J2250) As Ordered ONE (14:14)
[2019-04-24] MEDS ORDERED: PROPOFOL 200 MG/20 ML VIAL As Ordered ONE (14:14)
[2019-04-24] MEDS ORDERED: ROCURONIUM BROMIDE 50 MG/5 ML VIAL As Ordered ONE (14:14)
[2019-04-24] MEDS ORDERED: fentaNYL 100 MCG/2 ML INJECTION (J3010) As Ordered ONE (14:15)
[2019-04-24] MEDS ORDERED: ROPIvacaine 0.5% 30 ML INJECTION (J2795 PER 1MG) As Ordered ONE (14:53)
[2019-04-24] MEDS ORDERED: SUGAMMADEX SODIUM 500 MG/5 ML VIAL (BRIDION) As Ordered ONE (15:32)
[2019-04-24] MEDS ORDERED: KETOROLAC 60 MG/2 ML VIAL (J1885) As Ordered ONE (15:32)
[2019-04-24] MEDS ORDERED: dexameTHASONE 4 MG/ML 1ML VIAL (J1100) As Ordered ONE (15:32)
[2019-04-24] MEDS ORDERED: METOCLOPRAMIDE INJ 10MG/2ML VIAL (J2765) As Ordered ONE (15:32)
[2019-04-24] MEDS ORDERED: ONDANSETRON 4MG/2ML VIAL (J2405) As Ordered ONE (15:32)
[2019-04-24] MEDS ORDERED: ONDANSETRON 4MG/2ML VIAL (J2405) IV PRN (16:15)
[2019-04-24] MEDS ORDERED: LR 1,000 ML IV SCH ×2 (16:15)
[2019-04-24] MEDS ORDERED: ACETAMINOPH W/CODEINE #3 TAB UD PO PRN ×2 (16:15)
[2019-04-24] MEDS: fentaNYL 100 MCG/2 ML INJECTION (J3010) IV PRN ×2 (16:20→16:25)
[2019-04-24 18:05] VITALS: BP 154/82
--- NOTE | 2019-04-25 15:12 | RO ---
DATE OF PROCEDURE: 04/24/2019 PREPROCEDURE DIAGNOSIS: Right knee osteoarthritis and lateral meniscus tear. POSTOPERATIVE DIAGNOSIS: Right knee osteoarthritis and lateral meniscus tear with medial plica. OPERATIVE PROCEDURE: Right knee operative arthroscopy, partial lateral meniscectomy and excision plica. SURGEON: Mitchel Wallace MD HIM ASSISTANT: ANESTHESIA: General. ESTIMATED BLOOD LOSS: Less than 10 mL COMPLICATIONS: None. INDICATIONS This is a 58-year-old with morbid obesity and a BMI of 54 who has had persistent right knee pain. There was some underlying known osteoarthritis but she also had what appeared to be a large lateral meniscus tear. She wished to go ahead with arthroscopic treatment having failed conservative management. She understood the nature of this, the risks of bleeding, infection, damage to nerves, vessels, persistent pain, blood clots, medical problems, among others. She understands she is at substantially higher risk due to her super morbid obesity. She understood the osteoarthritis component would not likely be helped with the arthroscopy. DESCRIPTION OF PROCEDURE The patient was taken to the operating room and placed in supine position after general anesthesia was induced. The right lower extremity was prepped and draped in the usual sterile fashion. I used a spinal needle to localize the portals and then created inferomedial and inferolateral portals per routine. Identified the patellofemoral joint which was difficult to visualize. I was not able to use a tourniquet because of the size of her thigh as it would have been of little use. If anything I think it would have caused a venous tourniquet and increased the amount of bleeding. Eventually I was able to identify the patellofemoral joint. She had some grade 2 to 3 changes in the patellofemoral joint. She had a thickened medial plica that was excised with the shaver. I then proceeded down both gutters and the medial compartment was identified and actually was reasonably well-preserved. There was some grade 1 to 2 changes. No evidence of medial meniscus tear. I then proceeded to notch; the ACL was identified, lateral compartment was identified. She had grade 3 changes throughout her lateral compartment. She also had a complex lateral meniscus tear that was debrided with combination of basket punch and a 4.2 shaver. Again, visualization was quite difficult due to her body habitus and getting the instrumentation in the appropriate compartment was difficult, getting adequate visualization was difficult, but eventually was able to get this debrided back to a stable rim and reprobe the lateral meniscus, which was stable. Re-examined entire joint, removed instrumentation, closed the portals using #4-0 nylon suture, injected 30 mL of Naropin. Sterile dressing was applied and she was taken to recovery room in stable condition. There were no known complications. The plan will be routine postop. This is coded as unusually difficult procedure due to the fact she had a BMI of 54 which made the instrumentation much more difficult, it added a significant amount of time. Visualization was much more difficult due to the absence of a tourniquet and a fair amount of bleeding into the knee which took some time to settle down. CJ
== END 2019-04-24 18:15 | disposition home or self-care (01) ==
LOC: M SDC 11:45
PROVIDERS: ATTEND Orthopaedic Surgery
DX: M23.241 Derangement of anterior horn of lateral meniscus due to old tear or injury, right knee (principal); M67.51 Plica syndrome, right knee; E78.00 Pure hypercholesterolemia, unspecified; E03.9 Hypothyroidism, unspecified; K21.9 Gastro-esophageal reflux disease without esophagitis; I10 Essential (primary) hypertension; E66.01 Morbid (severe) obesity due to excess calories; Z79.899 Other long term (current) drug therapy
CPT/HCPCS: 29881; J0690; J1100; J1885; J2250; J2405; J2765; J2795; J3010

== ENCOUNTER → 2019-08-23 | Outpatient (CLI) | payer OTHER ==
[~2019-08-23] MED LIST changes: -LR 1,000 ML IV ONE; -SIMV20TA2 PO; +SIMV20TA22 PO; -ceFAZolin SOD 1 GM in D5W MINI-BAG PLUS 50 ML IV ONE
--- NOTE | 2019-08-23 13:45 | REP ---
BILATERAL MAMMOGRAM WITH 3D TOMOSYNTHESIS, DIAGNOSTIC MAMMOGRAM RIGHT BREAST: Family history of breast cancer in paternal cousin under age 50. History of two benign stereotactic biopsies 2007, left breast. Comparison made to multiple prior exams, most recently 02/26/2019. MLO and CC views of bilateral breasts performed, with 3D tomosynthesis. Mild scattered fibroglandular tissue is stable. Two metallic biopsy clips are again seen in the left breast. No new mass or architectural distortion is seen. Magnifications views are again performed of the right breast. Several tiny calcifications are again seen posteriorly and inferiorly in the right breast. Comparison is made to several prior studies dating back to 07/13/2017 when the tiny calcifications were first visualized. A couple of the calcifications seen on that exam are no longer visualized. Otherwise, the scattered tiny calcifications are totally unchanged. They are not clustered in any suspicious manner. No new microcalcifications are seen. IMPRESSION: BIRADS 2: BI-RADS/ACR category 2 mammogram. Benign Findings. ACR 2 benign. No new mass or clustered microcalcifications bilaterally. The previously noted tiny calcifications posteriorly and centrally in the right breast, inferiorly, have remained stable for over 2 years and, in fact, a couple of the calcifications originally seen are no longer visualized. Findings are therefore benign. Recommend followup mammogram in 1 year. This mammogram was interpreted with the aid of an FDA-approved computer-aided detection system. The patient states she/he had a clinical breast exam in 06/2019. The patient letter being requested is M1. Electronically Signed by Gabriele Almonte MD 08/23/2019 01:50 P
== END ==
LOC: M RAD 10:41
PROVIDERS: ATTEND Surgery
DX: Z12.31 Encounter for screening mammogram for malignant neoplasm of breast (principal)
CPT/HCPCS: 77066; G0279

== ENCOUNTER → 2019-09-18 | Outpatient (REF) | payer OTHER ==
[~2019-09-18] MED LIST changes: -OXYB10TA2 PO; +OXYB10TA23 PO
[2019-09-18 11:26] LABS: BASO # 0.1 10^3/uL (0.0-0.2); BASO % 0.9 % (0.0-1.0); EOS # 0.2 10^3/uL (0.0-0.5); EOS % 3.1 % (0.0-3.0); HEMATOCRIT 38.7 % (36.0-47.0); HEMOGLOBIN 12.2 g/dl (12.0-15.5); LYMPH # 2.4 10^3/uL (1.5-5.0); LYMPH % 32.3 % (24.0-44.0); MEAN CORPUSCULAR HEMOGLOBIN 26.7 pg (27.0-33.0); MEAN CORPUSCULAR HGB CONC 31.5 g/dl (32.0-36.5); MEAN CORPUSCULAR VOLUME 84.7 fl (80.0-96.0); MONO # 0.6 10^3/uL (0.0-0.8); MONO % 8.1 % (0.0-5.0); NEUTROPHILS # 4.1 10^3/uL (1.5-8.5); NEUTROPHILS % 55.5 % (36.0-66.0); PLATELET COUNT, AUTOMATED 308 10^3/uL (150-450); RED BLOOD COUNT 4.57 10^6/uL (4.00-5.40); WHITE BLOOD COUNT 7.4 10^3/uL (4.0-10.0)
[2019-09-18 11:54] LABS: ALBUMIN 3.5 GM/DL (3.2-5.2); ALT/SGPT 12 U/L (12-78); BILIRUBIN,TOTAL 0.4 MG/DL (0.2-1.0); BLOOD UREA NITROGEN 17 MG/DL (7-18); CARBON DIOXIDE LEVEL 30 MEQ/L (21-32); CHLORIDE LEVEL 106 MEQ/L (98-107); CHOLESTEROL LEVEL 151 MG/DL (<200); CHOLESTEROL RISK RATIO 2.696 (<5); CREATININE FOR GFR 0.81 MG/DL (0.55-1.30); FREE T4 1.32 NG/DL (0.76-1.46); GLOMERULAR FILTRATION RATE > 60.0 (>51); GLUCOSE, FASTING 91 MG/DL (70-100); HDL CHOLESTEROL 56 MG/DL (>40); LDL CHOLESTEROL 75 MG/DL (<100); NON-HDL-C 95 MG/DL; POTASSIUM SERUM 4.2 MEQ/L (3.5-5.1); SODIUM LEVEL 141 MEQ/L (136-145); TOTAL 25(OH) VITAMIN D 68.6 NG/ML (30.0-100.0); TOTAL PROTEIN 7.1 GM/DL (6.4-8.2); TRIGLYCERIDES LEVEL 98 MG/DL (<150)
== END ==
LOC: M SFHCCLAY 09:18
PROVIDERS: ATTEND Nurse Practitioner Family
DX: E55.9 Vitamin D deficiency, unspecified (principal); E78.5 Hyperlipidemia, unspecified; E03.9 Hypothyroidism, unspecified; N32.81 Overactive bladder

== ENCOUNTER → 2020-09-18 | Outpatient (REF) | payer OTHER ==
[2020-09-18 12:31] LABS: BASO # 0.1 10^3/uL (0.0-0.2); BASO % 0.6 % (0.0-1.0); EOS # 0.3 10^3/uL (0.0-0.5); EOS % 3.1 % (0.0-3.0); HEMATOCRIT 37.9 % (36.0-47.0); HEMOGLOBIN 11.8 g/dl (12.0-15.5); LYMPH # 2.1 10^3/uL (1.5-5.0); MEAN CORPUSCULAR HEMOGLOBIN 25.9 pg (27.0-33.0); MEAN CORPUSCULAR HGB CONC 31.1 g/dl (32.0-36.5); MEAN CORPUSCULAR VOLUME 83.3 fl (80.0-96.0); MONO # 0.6 10^3/uL (0.0-0.8); MONO % 7.7 % (0.0-5.0); NEUTROPHILS # 5.1 10^3/uL (1.5-8.5); NEUTROPHILS % 62.2 % (36.0-66.0); PLATELET COUNT, AUTOMATED 345 10^3/uL (150-450); RED BLOOD COUNT 4.55 10^6/uL (4.00-5.40); WHITE BLOOD COUNT 8.2 10^3/uL (4.0-10.0)
[2020-09-18 12:56] LABS: ALBUMIN 3.2 GM/DL (3.2-5.2); ALT/SGPT 11 U/L (12-78); BILIRUBIN,TOTAL 0.5 MG/DL (0.2-1.0); BLOOD UREA NITROGEN 16 MG/DL (7-18); CALCIUM LEVEL 9.1 MG/DL (8.5-10.1); CARBON DIOXIDE LEVEL 32 MEQ/L (21-32); CHLORIDE LEVEL 104 MEQ/L (98-107); CHOLESTEROL LEVEL 168 MG/DL (<200); CHOLESTEROL RISK RATIO 3.169 (<5); CREATININE FOR GFR 0.84 MG/DL (0.55-1.30); FREE T4 1.17 NG/DL (0.76-1.46); GLOMERULAR FILTRATION RATE > 60.0 (>51); GLUCOSE, FASTING 84 MG/DL (70-100); HDL CHOLESTEROL 53 MG/DL (>40); LDL CHOLESTEROL 89 MG/DL (<100); NON-HDL-C 115 MG/DL; POTASSIUM SERUM 3.4 MEQ/L (3.5-5.1); SODIUM LEVEL 142 MEQ/L (136-145); TOTAL PROTEIN 6.9 GM/DL (6.4-8.2); TRIGLYCERIDES LEVEL 128 MG/DL (<150)
[2020-09-18 13:04] LABS: HEMOGLOBIN A1c 5.2 %
== END ==
LOC: M SFHCCLAY 08:38
PROVIDERS: ATTEND Nurse Practitioner Family
DX: E55.9 Vitamin D deficiency, unspecified (principal); I10 Essential (primary) hypertension; E78.5 Hyperlipidemia, unspecified; E03.9 Hypothyroidism, unspecified; N32.81 Overactive bladder; Z13.1 Encounter for screening for diabetes mellitus

== ENCOUNTER → 2020-10-24 | Outpatient (REF) | payer OTHER | LOC: M PLALAB 11:58 | PROVIDERS: ATTEND Nurse Practitioner Family | DX: Z80.0 Family history of malignant neoplasm of digestive organs (principal) ==

== ENCOUNTER → 2020-10-24 | Outpatient (CLI) | payer OTHER ==
--- NOTE | 2020-10-24 12:48 | REPMRS ---
Patient History The patient states she had a clinical breast exam in 09/2020 Patient is postmenopausal. Family history of breast cancer under age 50 in paternal cousin, breast cancer in paternal cousin. 2 benign stereotatic breast biopsies of the left breast, February 12, 2008. Took unspecified hormones for 6 years. Digital Woman Screen Mammo: October 24, 2020 - Exam #: [id number] Bilateral CC and MLO view(s) were taken. Technologist: Pearl Ugalde, Technologist Prior study comparison: August 23, 2019, digital mammo diagnostic bilateral, performed at [facility]. February 26, 2019, right breast digital mammo diagnostic unilateral, performed at [facility]. August 23, 2018, digital mammo diagnostic bilateral, performed at [facility]. FINDINGS: There are scattered fibroglandular densities. The Volpara volumetric breast density category is:B. There are 2 needle biopsy marker clips again noted in stable nodular densities within the left breast unchanged. There has been no change in the appearance of the mammogram from the prior studies. There is a mild amount of scattered fibroglandular density which is fairly symmetric. There is no interval development of dominant mass, architectural distortion, or grouped microcalcification suggestive of malignancy. 3-D tomosynthesis shows no additional findings. Assessment: BI-RADS/ACR category 2 mammogram. Benign Findings. Recommendation Routine screening mammogram of both breasts in 1 year (for women over age 40). This patient's [facility] Lifetime Breast Cancer Risk is estimated at 12.1 %. This mammogram was interpreted with the aid of an FDA-approved computer-aided dectection system. Electronically Signed By: Jack Rowley MD 10/24/20 [id number]
== END ==
LOC: M WHC 10:18
PROVIDERS: ATTEND Nurse Practitioner Women's Health
DX: Z12.31 Encounter for screening mammogram for malignant neoplasm of breast (principal); Z86.018 Personal history of other benign neoplasm; Z97.8 Presence of other specified devices

== ENCOUNTER 2021-07-15 14:43 | Inpatient (IN) | payer OTHER ==
[~2021-07-15] VITALS: Ht 167.6 cm; Wt 143.0 kg
[2021-07-15] MEDS: NS 1,000 ML IV SCH (15:15)
[2021-07-15] MEDS ORDERED: ONDANSETRON 4MG/2ML VIAL IV ONE (15:15)
--- NOTE | 2021-07-15 15:26 | REP ---
INDICATION: Coronavirus workup COMPARISON: 11/06/2018 TECHNIQUE: Portable AP view of the chest FINDINGS: Bilateral opacities (right greater than left) consistent with COVID-19 pulmonary disease. No obvious effusion. No pneumothorax. Cardiac silhouette is normal. Skeletal structures intact. IMPRESSION: Moderate bilateral opacities consistent with COVID-19 pulmonary disease. <Electronically signed by Rex Mullins > 07/15/21 1520
[2021-07-15 15:50] LABS: BASO % 0.1 % (0.0-1.0); HEMATOCRIT 36.6 % (36.0-47.0); HEMOGLOBIN 12.1 g/dl (12.0-15.5); LYMPH # 0.7 10^3/uL (1.5-5.0); LYMPH % 9.3 % (24.0-44.0); MEAN CORPUSCULAR HEMOGLOBIN 26.2 pg (27.0-33.0); MEAN CORPUSCULAR HGB CONC 33.1 g/dl (32.0-36.5); MEAN CORPUSCULAR VOLUME 79.4 fl (80.0-96.0); MONO # 0.4 10^3/uL (0.0-0.8); NEUTROPHILS % 84.2 % (36.0-66.0); PLATELET COUNT, AUTOMATED 205 10^3/uL (150-450); RED BLOOD COUNT 4.61 10^6/uL (4.00-5.40); WHITE BLOOD COUNT 7.1 10^3/uL (4.0-10.0)
[2021-07-15 15:55] LABS: INR 0.99; PARTIAL THROMBOPLASTIN TIME 24.3 SECONDS (25.9-37.0); PROTHROMBIN TIME 13.5 SECONDS (12.7-14.5)
[2021-07-15 15:56] LABS: RSV AMPLIFICATION NEGATIVE (NEGATIVE)
[2021-07-15 16:07] LABS: CK-MB VALUE MASS < 1.0 NG/ML (<3.6); CPK CREATINE PHOSPHOKINASE 796 U/L (26-192); MB/CK RELATIVE INDEX 0.13 (< OR =4); TROPONIN I < 0.02 NG/ML (< 0.10)
[2021-07-15 16:12] LABS: D-DIMER QUANT 3510.93 ng/ml (<500)
[2021-07-15 16:19] LABS: ALBUMIN 2.5 GM/DL (3.2-5.2); ALT/SGPT 27 U/L (12-78); BILIRUBIN,TOTAL 0.7 MG/DL (0.2-1.0); BLOOD UREA NITROGEN 17 MG/DL (7-18); CALCIUM LEVEL 7.9 MG/DL (8.8-10.2); CARBON DIOXIDE LEVEL 27 MEQ/L (21-32); CHLORIDE LEVEL 97 MEQ/L (98-107); CREATININE FOR GFR 0.68 MG/DL (0.55-1.30); FERRITIN 303 NG/ML (8-252); GLOMERULAR FILTRATION RATE > 60.0 (>45); GLUCOSE, FASTING 119 MG/DL (70-100); LDH LACTATE DEHYDROGENASE 524 U/L (84-246); MAGNESIUM LEVEL 2.3 MG/DL (1.8-2.4); POTASSIUM SERUM 2.7 MEQ/L (3.5-5.1); SODIUM LEVEL 133 MEQ/L (136-145); TOTAL PROTEIN 6.3 GM/DL (6.4-8.2)
[2021-07-15] MEDS ORDERED: POTASSIUM CHLORIDE 10MEQ SR TABLET PO ONE (16:25)
[2021-07-15] MEDS ORDERED: MOM 30ML SUSPENSION UDC PO PRN (16:50)
[2021-07-15] MEDS ORDERED: ONDANSETRON 4MG/2ML VIAL IV PRN (17:05)
--- OUTSIDE RECORDS SUMMARY | 2021-07-15 17:23 | CCD ---
Author Author [facility] Organization [facility] Address Unknown Phone Unavailable Care Team Providers Care Account Executive Metal[employer] Name Role Phone Karoline Wesley Unavailable PROBLEMS Type Condition ICD9-CM Code [id number] Code Onset Dates Condition S tatus W/U Status Risk SNOMED Code Notes Problem Ocular hypertension H40.059 Active confirmed 0717050 Problem Vitamin D deficiency E55.9 Active confirmed 82922786 Problem Overactive bladder N32.81 Active confirmed 2 55939696 Problem Hypothyroid E03.9 Active confirmed 78461872 Problem Hyperlipidemia E78.5 Active confirmed 45842 004 Problem Morbid exogenous obesity E66.01 Active confirmed 213325385 Problem Urge incontinence N39.41 Active confirmed 87 215606 Problem Dysuria R30.0 Active confirmed 19997583 Problem Urinary frequency R35.0 Active confirmed 16 0623319 Problem Obesity, unspecified E66.9 Active confirmed 40554225984219 Problem Essential hypertension I10 Active confirmed 54456062 Problem Acquired absence of both cervix and uterus Z90.710 Active confirmed 499041561 Problem Morbid (severe) obesity due to excess calories E66 .01 Active confirmed 616762183 Problem Acquired absence of ovaries, unilateral Z90.721 Active confirmed 848398157 Problem Body mass index (BMI) of 50-59.9 in adult Z68.43 Active confirmed 604898931 Problem VINCE (obstructive sleep apnea) G47.33 Active confirm ed 30961828 Problem Abnormal mammogram R92.8 Active confirmed 1 57639069 Problem Postmenopausal atrophic vaginitis N95.2 Active con firmed 15554575 ALLERGIES Allergen (clinical drug ingredient) Drug/Non Drug Allergy do cumented on EMR Reaction Allergy Type Onset Date Status medical tape rash Non Drug Allergy Active ENCOUNTERS from 1960 to 2021-06-03 Encounter Location Date Provider Diagnosis [facility] Rikki BLANCHARD [phone] [place] [address] May, Karoline Wesley IMMUNIZATIONS Vaccine Route Administration Date Status Influenza 18 yrs & older Flublok IM Intramuscular Sep 18, 2020 Administered Influenza 18 yrs & older Flublok IM Intramuscular Sep 14, 2018 Administered Pneumococcal 0.5mL Prevnar 13 IM Intramuscular Jul 06, 2016 A dministered Influenza 6mo & up Fluzone IM Intramuscular Sep 06, 2017 Admi nistered Influenza 6mo & up Fluzone IM Intramuscular Jul 16, 2015 Admi nistered SOCIAL HISTORY Tobacco Use: Social History Observation Description Date Details (start date - stop date) Never Smoker Sex Assigned At : Social History Observation Description Sex Assigned At Unknown Audit Question Answer Notes Total Score: 0 Interpretation: Alcohol Education Sexual Hx: Question Answer Notes Had sex in the last 12 months (vaginal, oral, or anal)? Yes LMP: hyster Have you ever had an STD? No with Men only Use protection? No Drug and Alcohol Question Answer Notes Total Score: 0 Interpretation: No problems reported Alcohol Screening: Question Answer Notes Did you have a drink containing alcohol in the past year? No Points 0 Interpretation Negative BMI Care Goal Follow-Up Question Answer Notes Above Normal BMI Follow-Up Giving encouragement to exercise Tobacco Use: Question Answer Notes Are you a: never smoker never smoker REASON FOR REFERRAL No Information VITAL SIGNS No information MEDICATIONS Medication SIG (Take, Route, Frequency, Duration) Notes Start Da te End Date Status Pepcid 20 MG 1 tablet at bedtime as needed Orally Once a day for 30 day(s) Active Methenamine Hippurate 1 GM TAKE ONE TABLET BY MOUTH TWICE A DAY for 3 0 Active Synthroid 50 MCG TAKE ONE TABLET BY MOUTH EVERY DAY for 90 Not-Taking Latanoprost-Timolol Maleate 0.005-0.5 % 1 drop into af fected eye Ophthalmic Once a day Active Synthroid 50 50mcg as directed Oral qd Active Mucinex 600 MG 1 tablet as needed Orally every 12 hrs Not-Taking Chlorthalidone 25 MG TAKE ONE-HALF TABLET BY MOUTH ONCE A DAY for 30 Active Estradiol 0.1 MG/GM 1/2 gram Vaginal Two times a Week for 90 Active Vitamin D-3 5000 UNIT 1 tablet Orally daily Active Spacer/Aero-Holding Chambers - as directed Active ProAir HFA 108 (90 Base) mcg/act 2 puffs as needed Inh alation qid prn for 30 Days Feb, Active Myrbetriq 50 MG take one tablet by mouth every day Orally Once a da y for 90 Active Calcium 600 + D 600-400 MG-UNIT 800 units of vitamin D 1 tablet Orally Once a day Active Simvastatin 20 MG TAKE ONE TABLET BY MOUTH EVERY DAY for 90 Not-Taking Simvastatin 20 20mg 1 tab(s) orally daily Active PROCEDURES No Information RESULTS No Results REASON FOR VISIT referral MEDICAL (GENERAL) HISTORY Type Description Date Medical History stress urinary incontinence Medical History hyperlipidemia Medical History Hypothyroidism Medical History Vitamin D deficiency Medical History Sleep Apnea-declines CPAP Medical History menopause Surgical History bladder suspension 2008 Surgical History tubal ligation 1992 Surgical History right shoulder bone spur and rotar cuff repair and calcium deposits removed 05-26-2011 Surgical History left shoulder bone spur and rotar cuff repaired. 09/30/11 Surgical History Colonscopy with Lupe polyps...return i n 2014 Surgical History hysterectomy total 04/11/2014 Surgical History Colonoscopy 06/10/2016 Surgical History Cystoscopy x 2 01/28/2017 Surgical History Interstim trial placement,permanent plac ement 04/11/17 03/21/2017 Surgical History interstim removed 01/29/2019 Surgical History right knee surgery 04/24/2019 Hospitalization History Surgery Goals Section No Information Health Concerns No Information MEDICAL EQUIPMENT No Information MENTAL STATUS No Information FUNCTIONAL STATUS No Information ASSESSMENTS No Information PLAN OF TREATMENT Medication Medication Name Sig Start Date Stop Date Methenamine Hippurate 1 GM TAKE ONE TABLET BY MOUTH TWICE A DAY for 30 ProAir HFA 108 (90 Base) mcg/act 2 puffs as needed Inh alation qid prn for 30 Days Feb, Chlorthalidone 25 MG TAKE ONE-HALF TABLET BY MOUTH ONCE A DAY fo r 30 Estradiol 0.1 MG/GM 1/2 gram Vaginal Two times a Week for 90 Insurance Providers Payer Name Payer Address Payer Phone Insured Name Patient Relati onship to Insured Coverage Start Date Coverage End Date [facility] [place] [address] [facility] [id number] JYOTSNA CORDOBA self
--- OUTSIDE RECORDS SUMMARY | 2021-07-15 17:23 | CCD ---
Author Author [facility] Organization [facility] Address Unknown Phone Unavailable Care Team Providers Care Maintainer Central Office Name Role Phone Karoline Wesley Unavailable PROBLEMS ALLERGIES ENCOUNTERS from 1960 to 2021-07-09 IMMUNIZATIONS SOCIAL HISTORY REASON FOR REFERRAL No Information VITAL SIGNS MEDICATIONS PROCEDURES No Information RESULTS No Results REASON FOR VISIT MEDICAL (GENERAL) HISTORY Goals Section Health Concerns MEDICAL EQUIPMENT No Information MENTAL STATUS FUNCTIONAL STATUS ASSESSMENTS No Information PLAN OF TREATMENT Insurance Providers
--- OUTSIDE RECORDS SUMMARY | 2021-07-15 17:23 | CCD ---
Author Author [facility] Organization [facility] Address Unknown Phone Unavailable Care Team Providers Care Skiver Hand Name Role Phone Karoline Wesley Unavailable PROBLEMS Type Condition ICD9-CM Code HVZ72-GA Code Onset Dates Condition S tatus W/U Status Risk SNOMED Code Notes Problem Ocular hypertension H40.059 Active confirmed 8865143 Problem Vitamin D deficiency E55.9 Active confirmed 36461622 Problem Overactive bladder N32.81 Active confirmed 2 87883245 Problem Hypothyroid E03.9 Active confirmed 59004925 Problem Hyperlipidemia E78.5 Active confirmed 46454 004 Problem Morbid exogenous obesity E66.01 Active confirmed 252172228 Problem Urge incontinence N39.41 Active confirmed 87 852392 Problem Dysuria R30.0 Active confirmed 16425674 Problem Urinary frequency R35.0 Active confirmed 16 7200953 Problem Obesity, unspecified E66.9 Active confirmed 14428341065644 Problem Essential hypertension I10 Active confirmed 66738764 Problem Acquired absence of both cervix and uterus Z90.710 Active confirmed 073338985 Problem Morbid (severe) obesity due to excess calories E66 .01 Active confirmed 586369150 Problem Acquired absence of ovaries, unilateral Z90.721 Active confirmed 262759869 Problem Body mass index (BMI) of 50-59.9 in adult Z68.43 Active confirmed 940302242 Problem VINCE (obstructive sleep apnea) G47.33 Active confirm ed 22314353 Problem Abnormal mammogram R92.8 Active confirmed 1 44511316 Problem Postmenopausal atrophic vaginitis N95.2 Active con firmed 39831266 ALLERGIES Allergen (clinical drug ingredient) Drug/Non Drug Allergy do cumented on EMR Reaction Allergy Type Onset Date Status Tape rash Drug Allergy Active ENCOUNTERS from 1960 to 2021-07-13 Encounter Location Date Provider Diagnosis [facility] Vasile BLANCHARD [phone] [place] [address] 11 Jun, 2021 Karoline Wesley IMMUNIZATIONS Vaccine Route Administration Date [...] Information RESULTS No Results REASON FOR VISIT coughing lungs hurt ribs hurt had a temp yesterday MEDICAL (GENERAL) HISTORY Type Description Date Medical [...] Insured Coverage Start Date Coverage End Date [facility] [address] [facility] [id number] JYOTSNA CORDOBA self
--- OUTSIDE RECORDS SUMMARY | 2021-07-15 17:24 | CCD ---
Author Author [facility] Organization [facility] Address Unknown Phone Unavailable Care Team Providers Care It Applications Developer Name Role Phone Felton Mckenzie MD Unavailable Unavailable Felton Mckenzie MD Unavailable Unavailable Felton Mckenzie MD Unavailable Unavailable Felton Mckenzie MD Unavailable Unavailable Felton Mckenzie MD Unavailable Unavailable Felton Mckenzie MD Unavailable Unavailable Felton Mckenzie MD Unavailable Unavailable Felton Mckenzie MD Unavailable Unavailable Felton Mckenzie MD Unavailable Unavailable Felton Mckenzie MD Unavailable Unavailable Felton Mckenzie MD Unavailable Unavailable Felton Mckenzie MD Unavailable Unavailable Felton Mckenzie MD Unavailable Unavailable Felton Mckenzie MD Unavailable Unavailable Felton Mckenzie MD Unavailable Unavailable Felton Mckenzie MD Unavailable Unavailable Felton Mckenzie MD Unavailable Unavailable Felton Mckenzie MD Unavailable Unavailable Felton Mckenzie MD Unavailable Unavailable Felton Mckenzie MD Unavailable Unavailable Felton Mckenzie MD Unavailable Unavailable Felton Mckenzie MD Unavailable Unavailable Felton Mckenzie MD Unavailable Unavailable Felton Mckenzie MD Unavailable Unavailable Felton Mckenzie MD Unavailable Unavailable Felton Mckenzie MD Unavailable Unavailable Felton Mckenzie MD Unavailable Unavailable Felton Mckenzie MD Unavailable Unavailable Felton Mckenzie MD Unavailable Unavailable Felton Mckenzie MD Unavailable Unavailable Felton Mckenzie MD Unavailable Unavailable Felton Mckenzie MD Unavailable Unavailable Felton Mckenzie MD Unavailable Unavailable Felton Mckenzie MD Unavailable Unavailable Felton Mckenzie MD Unavailable Unavailable Felton Mckenzie MD Unavailable Unavailable Felton Mckenzie MD Unavailable Unavailable Felton Mckenzie MD Unavailable Unavailable Felton Mckenzie MD Unavailable Unavailable Felton Mckenzie MD Unavailable Unavailable Felton Mckenzie MD Unavailable Unavailable Felton Mckenzie MD Unavailable Unavailable Felton Mckenzie MD Unavailable Unavailable Felton Mckenzie MD Unavailable Unavailable Felton Mckenzie MD Unavailable Unavailable Felton Mckenzie MD Unavailable Unavailable Felton Mckenzie MD Unavailable Unavailable Felton Mckenzie MD Unavailable Unavailable Felton Mckenzie MD Unavailable Unavailable Felton Mckenzie MD Unavailable Unavailable Felton Mckenzie MD Unavailable Unavailable Felton Mckenzie MD Unavailable Unavailable Felton Mckenzie MD Unavailable Unavailable Felton Mckenzie MD Unavailable Unavailable Felton Mckenzie MD Unavailable Unavailable Felton Mckenzie MD Unavailable Unavailable Felton Mckenzie MD Unavailable Unavailable Felton Mckenzie MD Unavailable Unavailable Felton Mckenzie MD Unavailable Unavailable Felton Mckenzie MD Unavailable Unavailable Felton Mckenzie MD Unavailable Unavailable Felton Mckenzie MD Unavailable Unavailable Felton Mckenzie MD Unavailable Unavailable Felton Mckenzie MD Unavailable Unavailable Felton Mckenzie MD Unavailable Unavailable Felton Mckenzie MD Unavailable Unavailable Felton Mckenzie MD Unavailable Unavailable Felton Mckenzie MD Unavailable Unavailable Felton Mckenzie MD Unavailable Unavailable Felton Mckenzie MD Unavailable Unavailable Felton Mckenzie MD Unavailable Unavailable Felton Mckenzie MD Unavailable Unavailable Felton Mckenzie MD Unavailable Unavailable Felton Mckenzie MD Unavailable Unavailable Albertherese, D Karoline WEBSITE ADMIN Unavailable Unavailable Alberry, D Karoline WEBSITE ADMIN Unavailable Unavailable Alberry, D Karoline WEBSITE ADMIN Unavailable Unavailable Alberry, D Karoline WEBSITE ADMIN Unavailable Unavailable Alberry, D Karoline WEBSITE ADMIN Unavailable Unavailable Alberry, D Karoline WEBSITE ADMIN Unavailable Unavailable Alberry, D Karoline WEBSITE ADMIN Unavailable Unavailable Alberry, D Karoline WEBSITE ADMIN Unavailable Unavailable Alberry, D Karoline WEBSITE ADMIN Unavailable Unavailable Alberry, D Karoline WEBSITE ADMIN Unavailable Unavailable Alberry, D Karoline WEBSITE ADMIN Unavailable Unavailable Alberry, D Karoline WEBSITE ADMIN Unavailable Unavailable Alberry, D Karoline WEBSITE ADMIN Unavailable Unavailable Alberry, D Karoline WEBSITE ADMIN Unavailable Unavailable Alberry, D Karoline WEBSITE ADMIN Unavailable Unavailable Alberry, D Karoline WEBSITE ADMIN Unavailable Unavailable Alberry, D Karoline WEBSITE ADMIN Unavailable Unavailable Alberry, D Karoline WEBSITE ADMIN Unavailable Unavailable Alberry, D Karoline WEBSITE ADMIN Unavailable Unavailable Alberry, D Karoline WEBSITE ADMIN Unavailable Unavailable Alberry, D Karoline WEBSITE ADMIN Unavailable Unavailable Alberry, D Karoline WEBSITE ADMIN Unavailable Unavailable Alberry, D Karoline WEBSITE ADMIN Unavailable Unavailable Alberry, D Karoline WEBSITE ADMIN Unavailable Unavailable Alberry, D Karoline WEBSITE ADMIN Unavailable Unavailable Alberry, D Karoline WEBSITE ADMIN Unavailable Unavailable Alberry, D Karoline WEBSITE ADMIN Unavailable Unavailable Alberry, D Karoline WEBSITE ADMIN Unavailable Unavailable Alberry, D Karoline WEBSITE ADMIN Unavailable Unavailable Alberry, D Karoline WEBSITE ADMIN Unavailable Unavailable Alberry, D Karoline WEBSITE ADMIN Unavailable Unavailable Alberry, D Karoline WEBSITE ADMIN Unavailable Unavailable Alberry, D Karoline WEBSITE ADMIN Unavailable Unavailable Alberry, D Karoline WEBSITE ADMIN Unavailable Unavailable Alberry, D Karoline WEBSITE ADMIN Unavailable Unavailable Alberry, D Karoline WEBSITE ADMIN Unavailable Unavailable Alberry, D Karoline WEBSITE ADMIN Unavailable Unavailable Alberry, D Karoline WEBSITE ADMIN Unavailable Unavailable Alberry, D Karoline WEBSITE ADMIN Unavailable Unavailable Alberry, D Karoline WEBSITE ADMIN Unavailable Unavailable Alberry, D Karoline WEBSITE ADMIN Unavailable Unavailable Alberry, D Karoline WEBSITE ADMIN Unavailable Unavailable Alberry, D Karoline WEBSITE ADMIN Unavailable Unavailable Alberry, D Karoline WEBSITE ADMIN Unavailable Unavailable Alberry, D Karoline WEBSITE ADMIN Unavailable Unavailable Alberry, D Karoline WEBSITE ADMIN Unavailable Unavailable Alberry, D Karoline WEBSITE ADMIN Unavailable Unavailable Alberry, D Karoline WEBSITE ADMIN Unavailable Unavailable Alberry, D Karoline WEBSITE ADMIN Unavailable Unavailable Alberry, D Karoline WEBSITE ADMIN Unavailable Unavailable Alberry, D Karoline WEBSITE ADMIN Unavailable Unavailable Alberry, D Karoline WEBSITE ADMIN Unavailable Unavailable Alberry, D Karoline WEBSITE ADMIN Unavailable Unavailable Alberry, D Karoline WEBSITE ADMIN Unavailable Unavailable Alberry, D Karoline WEBSITE ADMIN Unavailable Unavailable Re-disclosure Warning The records that you are about to access may contain information from federally-assisted alcohol or drug abuse programs. If such information is present, then the following federally mandated warning applies: This information has been disclosed to you from records protected by federal confidentiality rules (42 CFR part 2). The federal rules prohibit you from making any further disclosure of this information unless further disclosure is expressly permitted by the written consent of the person to whom it pertains or as otherwise permitted by 42 CFR part 2. A general authorization for the release of medical or other information is NOT sufficient for this purpose. The Federal rules restrict any use of the information to criminally investigate or prosecute any alcohol or drug abuse patient.The records that you are about to access may contain highly sensitive health information, the redisclosure of which is protected by Article 27-F of the [facility] Public Health law. If you continue you may have access to information: Regarding HIV / AIDS; Provided by facilities licensed or operated by the [facility] Office of Mental Health; or Provided by the [facility] Office for People With Developmental Disabilities. If such information is present, then the following [facility] mandated warning applies: This information has been disclosed to you from confidential records which are protected by state law. State law prohibits you from making any further disclosure of this information without the specific written consent of the person to whom it pertains, or as otherwise permitted by law. Any unauthorized further disclosure in violation of state law may result in a fine or correction sentence or both. A general authorization for the release of medical or other information is NOT sufficient authorization for further disc losure. Family History Family Member Name Family Member Gender Family Member Status Date o f Status Description Data Source(s) Unknown Male Problem MEDENT ([facility] () Unknown Unknown Problem [facility] ([facility] Unknown Female Problem MED[facility] ([facility]) Unknown Female Problem MEDENT ([facility]) Unknown Female Problem MEDENT ([facility] ) Encounters Encounter Providers Location Date Indications Data Source(s ) [place] [address] [facility] [address] 07/09/2021 12:00:00 AM EST eCW1 (Critical access hospital[facility] [place] [address] [facility] [address] 07/08/2021 12:00:00 AM EST eCW1 (Critical access hospital) [place] [address] [facility] [address] 06/03/2021 12:00:00 AM EDT eCW1 (Critical access hospital) [place] [address] [facility] [address] 03/10/2021 12:00:00 AM EDT eCW1 (Critical access hospital) [place] [address] [facility] [address] 03/10/2021 12:00:00 AM EDT eCW1 (Critical access hospital) Outpatient Attender: Karoline Wesley FNPReferrer: Jona murillo MD 10/24/2020 02:00:00 PM [facility] [place] [address] [facility] [address] 10/24/2020 12:00:00 AM EST eCW1 (Critical access hospital) [place] [address] [address] 09/18/2020 12:00:00 AM EST eCW1 (Critical access hospital) Immunizations Vaccine Date Status Description Data Source(s) influenza, recombinant, quadrIvalent,injectable, prese rvative free 09/18/2020 08:53:00 AM EST completed eCW1 ([facility]) influenza, recombinant, quadrIvalent,injectable, prese rvative free 09/18/2020 08:53:00 AM EST completed eCW1 ([facility]) influenza, recombinant, quadrIvalent,injectable, prese rvative free 09/18/2020 08:53:00 AM EST completed eCW1 ([facility]) influenza, recombinant, quadrIvalent,injectable, prese rvative free 09/18/2020 08:53:00 AM EST completed eCW1 ([facility]) influenza, recombinant, quadrIvalent,injectable, prese rvative free 09/18/2020 08:53:00 AM EST completed eCW1 ([facility]) influenza, recombinant, quadrIvalent,injectable, prese rvative free 09/18/2020 08:53:00 AM EST completed eCW1 ([facility]) influenza, recombinant, quadrIvalent,injectable, prese rvative free 09/18/2020 08:53:00 AM EST completed eCW1 ([facility]) Medications Medication Brand Name Start Date Product Form Dose Route Admi nistrative Instructions Pharmacy Instructions Status Indications Reaction Description Data Source(s) 0.2 % 06/28/2021 12:00:00 AM EDT drops 15 INSTILL ONE DROP INTO BOTH EYES TWO TIMES A DAY INSTILL ONE DROP INTO BOTH EYES TWO TIMES A DAY SOLD: 06/30/2021 [facility] 1 gram 05/05/2021 12:00:00 AM EDT tablet 60 TAKE ONE TABLET BY MOUTH TWICE A DAY TAKE ONE TABLET BY MOUTH TWICE A DAY SOLD: 06/27/2021 [facility] 50 mcg 05/05/2021 12:00:00 AM EDT tablet 90 TAKE ONE TABLET BY MOUTH EVERY DAY TAKE ONE TABLET BY MOUTH EVERY DAY SOLD: 05/10/2021 [facility] 20 mg 05/05/2021 12:00:00 AM EDT tablet 90 TAKE ONE TABLET BY MOUTH EVERY DAY TAKE ONE TABLET BY MOUTH EVERY DAY SOLD: 05/10/2021 [facility] 1 gram 05/05/2021 12:00:00 AM EDT tablet 60 TAKE ONE TABLET BY MOUTH TWICE A DAY TAKE ONE TABLET BY MOUTH TWICE A DAY SOLD: 05/10/2021 [facility] 25 mg 04/29/2021 12:00:00 AM EDT tablet 15 TAKE ONE-HALF TABLET BY MOUTH EVERY DAY TAKE ONE-HALF TABLET BY MOUTH EVERY DAY SOLD: 06/02/2021 [facility] 25 mg 04/29/2021 12:00:00 AM EDT tablet 15 TAKE ONE-HALF TABLET BY MOUTH EVERY DAY TAKE ONE-HALF TABLET BY MOUTH EVERY DAY SOLD: 05/03/2021 [facility] 25 mg 04/29/2021 12:00:00 AM EDT tablet 15 TAKE ONE-HALF TABLET BY MOUTH EVERY DAY TAKE ONE-HALF TABLET BY MOUTH EVERY DAY SOLD: 07/01/2021 [facility] 0.01 % (0.1 mg/gram) 03/11/2021 12:00:00 AM EDT cream 42 USE 1/2 GRAM VAGINALLY DIRECTED TWICE WEEKLY USE 1/2 GRAM VAGINALLY DIRECTED TWICE WEEKLY SOLD: 03/17/2021 [facility] 200 ACTUAT Albuterol 0.09 MG/ACTUAT Mete red Dose Inhaler [ProAir] ProAir HFA 108 (90 Base) mcg/act ProAir HFA 108 (90 Base) mcg/act 03/10/2021 12:00:00 AM EDT 2.0 {puffs_as_needed} active Pr oAir HFA 108 (90 Base) mcg/act [facility] 200 ACTUAT Albuterol 0.09 MG/ACTUAT Mete red Dose Inhaler [ProAir] ProAir HFA 108 (90 Base) mcg/act ProAir HFA 108 (90 Base) mcg/act 03/10/2021 12:00:00 AM EDT 2.0 {puffs_as_needed} active eCW1 ([facility]) 200 ACTUAT Albuterol 0.09 MG/ACTUAT Mete red Dose Inhaler [ProAir] ProAir HFA 108 (90 Base) mcg/act ProAir HFA 108 (90 Base) mcg/act 03/10/2021 12:00:00 AM EDT 2.0 {puffs_as_needed} active Pr oAir HFA 108 (90 Base) mcg/act eCW1 ([facility]) 90 mcg/actuation 03/10/2021 12:00:00 AM EDT HFA aerosol inha ler 8 INHALE TWO PUFFS BY MOUTH FOUR TIMES A DAY NEEDED INHALE TWO PUFFS BY MOUTH FOUR TIMES A DAY NEEDED SOLD: 03/10/2021 [facility] 200 ACTUAT Albuterol 0.09 MG/ACTUAT Mete red Dose Inhaler [ProAir] ProAir HFA 108 (90 Base) mcg/act ProAir HFA 108 (90 Base) mcg/act 03/10/2021 12:00:00 AM EDT 2.0 {puffs_as_needed} active Pr oAir HFA 108 (90 Base) mcg/act eCW1 ([facility]) 200 ACTUAT Albuterol 0.09 MG/ACTUAT Mete red Dose Inhaler [ProAir] ProAir HFA 108 (90 Base) mcg/act ProAir HFA 108 (90 Base) mcg/act 03/10/2021 12:00:00 AM EDT 2.0 {puffs_as_needed} active Pr oAir HFA 108 (90 Base) mcg/act eCW1 ([facility]) 0.005 % 02/01/2021 12:00:00 AM EDT drops 7 INSTILL 1 DROP IN EACH EYE AT BEDTIME INSTILL 1 DROP IN EACH EYE AT BEDTIME SOLD: 07/07/2021 [facility] 0.005 % 02/01/2021 12:00:00 AM EDT drops 7 INSTILL 1 DROP IN EACH EYE AT BEDTIME INSTILL 1 DROP IN EACH EYE AT BEDTIME SOLD: 02/03/2021 [facility] 0.005 % 02/01/2021 12:00:00 AM EDT drops 7 INSTILL 1 DROP IN EACH EYE AT BEDTIME INSTILL 1 DROP IN EACH EYE AT BEDTIME SOLD: 04/21/2021 [facility] 1 gram 01/05/2021 12:00:00 AM EDT tablet 60 TAKE ONE TABLET BY MOUTH TWICE A DAY TAKE ONE TABLET BY MOUTH TWICE A DAY SOLD: 03/10/2021 [facility] 1 gram 01/05/2021 12:00:00 AM EDT tablet 60 TAKE ONE TABLET BY MOUTH TWICE A DAY TAKE ONE TABLET BY MOUTH TWICE A DAY SOLD: 01/07/2021 [facility] 1 gram 01/05/2021 12:00:00 AM EDT tablet 60 TAKE ONE TABLET BY MOUTH TWICE A DAY TAKE ONE TABLET BY MOUTH TWICE A DAY SOLD: 02/09/2021 [facility] 1 gram 01/05/2021 12:00:00 AM EDT tablet 60 TAKE ONE TABLET BY MOUTH TWICE A DAY TAKE ONE TABLET BY MOUTH TWICE A DAY SOLD: 04/07/2021 [facility] 25 mg 12/09/2020 12:00:00 AM EDT tablet 15 TAKE ONE-HALF TABLET BY MOUTH ONCE A DAY TAKE ONE-HALF TABLET BY MOUTH ONCE A DAY SOLD: 03/04/2021 [facility] 25 mg 12/09/2020 12:00:00 AM EDT tablet 15 TAKE ONE-HALF TABLET BY MOUTH ONCE A DAY TAKE ONE-HALF TABLET BY MOUTH ONCE A DAY SOLD: 12/11/2020 [facility] 25 mg 12/09/2020 12:00:00 AM EDT tablet 15 TAKE ONE-HALF TABLET BY MOUTH ONCE A DAY TAKE ONE-HALF TABLET BY MOUTH ONCE A DAY SOLD: 04/02/2021 [facility] 25 mg 12/09/2020 12:00:00 AM EDT tablet 15 TAKE ONE-HALF TABLET BY MOUTH ONCE A DAY TAKE ONE-HALF TABLET BY MOUTH ONCE A DAY SOLD: 01/14/2021 [facility] 50 mg 08/26/2020 12:00:00 AM EST tablet extended release 24 hr 30 TAKE ONE TABLET BY MOUTH EVERY DAY TAKE ONE TABLET BY MOUTH EVERY DAY SOLD: 12/01/2020 [facility] 50 mg 08/26/2020 12:00:00 AM EST tablet extended release 24 hr 30 TAKE ONE TABLET BY MOUTH EVERY DAY TAKE ONE TABLET BY MOUTH EVERY DAY SOLD: 07/07/2021 [facility] 50 mg 08/26/2020 12:00:00 AM EST tablet extended release 24 hr 90 TAKE ONE TABLET BY MOUTH EVERY DAY TAKE ONE TABLET BY MOUTH EVERY DAY SOLD: 09/01/2020 [facility] 50 mg 08/26/2020 12:00:00 AM EST tablet extended release 24 hr 30 TAKE ONE TABLET BY MOUTH EVERY DAY TAKE ONE TABLET BY MOUTH EVERY DAY SOLD: 04/02/2021 [facility] 50 mg 08/26/2020 12:00:00 AM EST tablet extended release 24 hr 30 TAKE ONE TABLET BY MOUTH EVERY DAY TAKE ONE TABLET BY MOUTH EVERY DAY SOLD: 02/03/2021 [facility] 50 mg 08/26/2020 12:00:00 AM EST tablet extended release 24 hr 30 TAKE ONE TABLET BY MOUTH EVERY DAY TAKE ONE TABLET BY MOUTH EVERY DAY SOLD: 06/07/2021 [facility] 50 mg 08/26/2020 12:00:00 AM EST tablet extended release 24 hr 30 TAKE ONE TABLET BY MOUTH EVERY DAY TAKE ONE TABLET BY MOUTH EVERY DAY SOLD: 05/03/2021 [facility] 50 mg 08/26/2020 12:00:00 AM EST tablet extended release 24 hr 30 TAKE ONE TABLET BY MOUTH EVERY DAY TAKE ONE TABLET BY MOUTH EVERY DAY SOLD: 01/04/2021 [facility] 50 mg 08/26/2020 12:00:00 AM EST tablet extended release 24 hr 30 TAKE ONE TABLET BY MOUTH EVERY DAY TAKE ONE TABLET BY MOUTH EVERY DAY SOLD: 03/03/2021 [facility] 1 gram 08/04/2020 12:00:00 AM EST tablet 60 TAKE ONE TABLET BY MOUTH TWICE A DAY TAKE ONE TABLET BY MOUTH TWICE A DAY SOLD: 11/05/2020 [facility] 1 gram 08/04/2020 12:00:00 AM EST tablet 60 TAKE ONE TABLET BY MOUTH TWICE A DAY TAKE ONE TABLET BY MOUTH TWICE A DAY SOLD: 09/06/2020 [facility] 1 gram 08/04/2020 12:00:00 AM EST tablet 60 TAKE ONE TABLET BY MOUTH TWICE A DAY TAKE ONE TABLET BY MOUTH TWICE A DAY SOLD: 08/05/2020 [facility] 1 gram 08/04/2020 12:00:00 AM EST tablet 60 TAKE ONE TABLET BY MOUTH TWICE A DAY TAKE ONE TABLET BY MOUTH TWICE A DAY SOLD: 12/05/2020 [facility] 1 gram 08/04/2020 12:00:00 AM EST tablet 60 TAKE ONE TABLET BY MOUTH TWICE A DAY TAKE ONE TABLET BY MOUTH TWICE A DAY SOLD: 10/06/2020 [facility] 25 mg 07/14/2020 12:00:00 AM EST tablet 15 TAKE ONE-HALF TABLET BY MOUTH EVERY DAY TAKE ONE-HALF TABLET BY MOUTH EVERY DAY SOLD: 08/15/2020 [facility] 25 mg 07/14/2020 12:00:00 AM EST tablet 15 TAKE ONE-HALF TABLET BY MOUTH EVERY DAY TAKE ONE-HALF TABLET BY MOUTH EVERY DAY SOLD: 10/14/2020 [facility] 25 mg 07/14/2020 12:00:00 AM EST tablet 15 TAKE ONE-HALF TABLET BY MOUTH EVERY DAY TAKE ONE-HALF TABLET BY MOUTH EVERY DAY SOLD: 07/16/2020 [facility] 25 mg 07/14/2020 12:00:00 AM EST tablet 15 TAKE ONE-HALF TABLET BY MOUTH EVERY DAY TAKE ONE-HALF TABLET BY MOUTH EVERY DAY SOLD: 11/12/2020 [facility] 25 mg 07/14/2020 12:00:00 AM EST tablet 15 TAKE ONE-HALF TABLET BY MOUTH EVERY DAY TAKE ONE-HALF TABLET BY MOUTH EVERY DAY SOLD: 09/14/2020 [facility] 50 mg 05/23/2020 12:00:00 AM EDT tablet extended release 24 hr 90 TAKE ONE TABLET BY MOUTH EVERY DAY TAKE ONE TABLET BY MOUTH EVERY DAY SOLD: 05/30/2020 [facility] 20 mg 04/07/2020 12:00:00 AM EDT tablet 30 TAKE ONE TABLET BY MOUTH EVERY DAY TAKE ONE TABLET BY MOUTH EVERY DAY SOLD: 02/09/2021 [facility] 20 mg 04/07/2020 12:00:00 AM EDT tablet 30 TAKE ONE TABLET BY MOUTH EVERY DAY TAKE ONE TABLET BY MOUTH EVERY DAY SOLD: 04/07/2021 [facility] 50 mcg 04/07/2020 12:00:00 AM EDT tablet 30 TAKE ONE TABLET BY MOUTH EVERY DAY TAKE ONE TABLET BY MOUTH EVERY DAY SOLD: 04/07/2021 [facility] 50 mcg 04/07/2020 12:00:00 AM EDT tablet 30 TAKE ONE TABLET BY MOUTH EVERY DAY TAKE ONE TABLET BY MOUTH EVERY DAY SOLD: 12/07/2020 [facility] 50 mcg 04/07/2020 12:00:00 AM EDT tablet 30 TAKE ONE TABLET BY MOUTH EVERY DAY TAKE ONE TABLET BY MOUTH EVERY DAY SOLD: 10/09/2020 [facility] 20 mg 04/07/2020 12:00:00 AM EDT tablet 30 TAKE ONE TABLET BY MOUTH EVERY DAY TAKE ONE TABLET BY MOUTH EVERY DAY SOLD: 10/09/2020 [facility] 50 mcg 04/07/2020 12:00:00 AM EDT tablet 30 TAKE ONE TABLET BY MOUTH EVERY DAY TAKE ONE TABLET BY MOUTH EVERY DAY SOLD: 02/09/2021 [facility] 20 mg 04/07/2020 12:00:00 AM EDT tablet 30 TAKE ONE TABLET BY MOUTH EVERY DAY TAKE ONE TABLET BY MOUTH EVERY DAY SOLD: 12/07/2020 [facility] 50 mcg 04/07/2020 12:00:00 AM EDT tablet 30 TAKE ONE TABLET BY MOUTH EVERY DAY TAKE ONE TABLET BY MOUTH EVERY DAY SOLD: 03/10/2021 [facility] 20 mg 04/07/2020 12:00:00 AM EDT tablet 30 TAKE ONE TABLET BY MOUTH EVERY DAY TAKE ONE TABLET BY MOUTH EVERY DAY SOLD: 03/10/2021 [facility] 20 mg 04/07/2020 12:00:00 AM EDT tablet 30 TAKE ONE TABLET BY MOUTH EVERY DAY TAKE ONE TABLET BY MOUTH EVERY DAY SOLD: 01/07/2021 [facility] 20 mg 04/07/2020 12:00:00 AM EDT tablet 30 TAKE ONE TABLET BY MOUTH EVERY DAY TAKE ONE TABLET BY MOUTH EVERY DAY SOLD: 11/07/2020 [facility] 50 mcg 04/07/2020 12:00:00 AM EDT tablet 30 TAKE ONE TABLET BY MOUTH EVERY DAY TAKE ONE TABLET BY MOUTH EVERY DAY SOLD: 01/07/2021 [facility] 50 mcg 04/07/2020 12:00:00 AM EDT tablet 30 TAKE ONE TABLET BY MOUTH EVERY DAY TAKE ONE TABLET BY MOUTH EVERY DAY SOLD: 11/07/2020 [facility] 50 mcg 04/07/2020 12:00:00 AM EDT tablet 90 TAKE ONE TABLET BY MOUTH EVERY DAY TAKE ONE TABLET BY MOUTH EVERY DAY SOLD: 07/11/2020 [facility] 20 mg 04/07/2020 12:00:00 AM EDT tablet 90 TAKE ONE TABLET BY MOUTH EVERY DAY TAKE ONE TABLET BY MOUTH EVERY DAY SOLD: 07/11/2020 [facility] 0.01 % (0.1 mg/gram) 03/18/2020 12:00:00 AM EDT cream 42 INSERT 1/2 GRAM TWICE A WEEK VAGINALLY INSERT 1/2 GRAM TWICE A WEEK VAGINALLY SOLD: 09/14/2020 [facility] 0.01 % (0.1 mg/gram) 03/18/2020 12:00:00 AM EDT cream 42 INSERT 1/2 GRAM TWICE A WEEK VAGINALLY INSERT 1/2 GRAM TWICE A WEEK VAGINALLY SOLD: 06/17/2020 [facility] 0.01 % (0.1 mg/gram) 03/18/2020 12:00:00 AM EDT cream 42 INSERT 1/2 GRAM TWICE A WEEK VAGINALLY INSERT 1/2 GRAM TWICE A WEEK VAGINALLY SOLD: 12/14/2020 [facility] 25 mg 01/07/2020 12:00:00 AM EDT tablet 15 TAKE 1/2 TABLET BY MOUTH ONCE DAILY TAKE 1/2 TABLET BY MOUTH ONCE DAILY SOLD: 05/18/2020 [facility] 25 mg 01/07/2020 12:00:00 AM EDT tablet 15 TAKE 1/2 TABLET BY MOUTH ONCE DAILY TAKE 1/2 TABLET BY MOUTH ONCE DAILY SOLD: 06/17/2020 [facility] 1 gram 12/26/2019 12:00:00 AM EDT tablet 60 TAKE ONE TABLET BY MOUTH TWICE A DAY TAKE ONE TABLET BY MOUTH TWICE A DAY SOLD: 07/06/2020 [facility] 1 gram 12/26/2019 12:00:00 AM EDT tablet 60 TAKE ONE TABLET BY MOUTH TWICE A DAY TAKE ONE TABLET BY MOUTH TWICE A DAY SOLD: 06/05/2020 [facility] Insurance Providers Payer name Policy type / Coverage type Policy ID Covered republican ID Covered republican's relationship to allen Policy [place] Plan Information MVP (pr) Commercial [id number] Self MVP (pr) Commercial [id number] Self [id number] [facility] [id number] Self [id number] [place] [id number] Self [id number] [place] [id number] [place] [id number] [place] [id number] Self [id number] [place] [id number] Self [id number] [place] [id number] Self [id number] [place] [id number] Self [id number] [place] [id number] Self [id number] [place] [id number] Self [id number] [place] [id number] [place] [id number] Self [id number] [place] [id number] Self [id number] [place] [id number] Self [id number] [facility] MEDICAID [id number] S [id number] [employer] COMMUNITY PLAN MCDHMO [id number] SP [id number] [employer]HC COMMUNITY PLAN MCDHMO [id number] SP [id number] [employer] COMMUNITY PLAN MCDHMO [id number] SP [id number] [facility] MEDICAID [id number] S [id number] [facility] Plan Commercial [id number] Self [id number] [facility] MEDICAID [id number] S [id number] [facility] [id number] [facility]-Medicaid [id number] [facility]-Medicaid [id number] [facility]-Medicaid [id number] [facility]icaid [id number] [facility]Medicaid [id number] [facility]Medicaid [id number] [facility]-Medicaid [id number] ANSI-Medicaid [id number] ANSI-Medicaid [id number] ANSI-Medicaid [id number] ANSI-Medicaid [id number] ANSI-Medicaid [id number] ANSI-Medicaid [id number] ANSI-Medicaid [id number] ANSI-Medicaid [id number] ANSI-Medicaid [id number] ANSI-Medicaid [id number] ANSI-Medicaid [id number] ANSI-Medicaid [id number] ANSI-Medicaid [id number] ANSI-Medicaid [id number] ANSI-Medicaid [id number] ANSI-Medicaid [id number] ANSI-Medicaid [id number] ANSI-Medicaid [id number] ANSI-Medicaid [id number] ANSI-Medicaid [id number] [facility] ([facility]) [id number] [facility] [address] [id number] [facility] MEDICAID [id number] S [id number] ANSI-Medicaid [id number] ANSI-Medicaid [id number] ANSI-Medicaid [id number] ANSI-Medicaid [id number] ANSI-Medicaid [id number] ANSI-Medicaid [id number] ANSI-Medicaid [id number] ANSI-Medicaid [id number] ANSI-Medicaid [id number] ANSI-Medicaid [id number] ANSI-Medicaid [id number] ANSI-Medicaid [id number] ANSI-Medicaid [id number] ANSI-Medicaid [id number] ANSI-Medicaid [id number] ANSI-Medicaid [id number] ANSI-Medicaid [id number] ANSI-Medicaid [id number] ANSI-Medicaid [id number] ANSI-Medicaid [id number] ANSI-Medicaid [id number] [facility] [id number] [facility] Maintenance [facility] ([facility]) [id number] Self [id number] ANSI-Medicaid [id number] ANSI-Medicaid [id number] ANSI-Medicaid [id number] ANSI-Medicaid [id number] ANSI-Medicaid [id number] [facility] [id number] [employer] MEDICAID [id number] S [id number] [facility] Maintenance [facility] ([facility]) [id number] Self [id number] [facility] Maintenance [facility] ([facility]) [id number] Self [id number] [facility] Community Plan Commercial [id number] Self [id number] MEDICAID [id number] SP [id number] [facility] Community Plan Commercial [id number] Self MVP (pr) Commercial [id number] Self SELF PAY SP [id number] S [id number] [facility] PHY [id number] SP [id number] HMO BLUE [id number] SP [id number] UN COMMUNITY PLAN MCDHMO [id number] SP [id number] [facility] O [id number] S [id number] MEDICAID [id number] S [id number] [facility] (HMO) [id number] Self [id number] ANSI-Medicaid [id number] ANSI-Medicaid [id number] ANSI-Medicaid [id number] ANSI-Medicaid [id number] ANSI-Medicaid [id number] ANSI-Medicaid [id number] ANSI-Medicaid [id number] ANSI-Medicaid [id number] ANSI-Medicaid [id number] ANSI-Medicaid [id number] ANSI-Medicaid [id number] ANSI-Medicaid [id number] ANSI-Medicaid [id number] ANSI-Medicaid [id number] ANSI-Medicaid [id number] ANSI-Medicaid [id number] ANSI-Medicaid [id number] ANS-Medicaid [id number] Problems, Conditions, and Diagnoses Code Display Name Description Problem Type Effective Dates Data Source(s) R59.0 Localized enlarged lymph nodes LOCALIZED ENLARGED LYMP H NODES Diagnosis 10/24/2020 02:00:00 PM [facility] E66.01 [id number] Morbid (severe) obesity due to excess kandice ories Problem 10/24/2020 12:00:00 AM EST [facility] ([facility]) Surgeries/Procedures No Information Results ID Date Data Source [id number] 10/24/2020 02:52:00 PM [facility] DATE OF EXAMINATION: 10/24/2020 13:53 ES T ULTRASOUND LEFT neck HISTORY: Lymphadenopathy Real-time ultrasound imaging was performed utilizing B-mode/germain scale and colorDoppler imaging where applicable. FINDINGS: A few small nodes are noted largest measuring 0.3 x 0.9 cm. There are no solidmasses IMPRESSION: 0.3 x 0.9 cm node. No solid masses or fluid collections. Electronically signed in PS360 by: Tati Cain M.D. 10/24/2020 14:46 EST Name Value Range Interpretation Code Description Data Poly rce(s) Supporting Document(s) ID Date Data Source [facility] DIGITAL / MARU BILATERAL MAMMO SCREENING (Ultraso und if indicated) 10/24/2020 12:00:00 AM EST eCW1 ([facility]) Name Value Range Interpretation Code Description Data Poly rce(s) Supporting Document(s) [facility] DIGITAL / MARU BILAT ERAL MAMMO SCREENING (Ultrasound if indicated) eCW1 ([facility]) ID Date Data Source Comprehensive Metabolic Profile (CMP) 09/18/2020 12:00:00 AM EST eCW1 ([facility]) Name Value Range Interpretation Code Description Data Poly rce(s) Supporting Document(s) 16 7-18 BLOOD UREA NITROGEN eCW1 (Counts include 234 beds at the [facility]) 84 70-100 GLUCOSE, FASTING eCW1 (Replaced by [facility]) 0.84 0.55-1.30 CREATININE FOR GFR eCW1 ([facility]) > 60.0 >51 GLOMERULAR FILTRATION RATE eCW 1 ([facility]) 142 136-145 SODIUM LEVEL eCW1 ([facility]) 3.4 3.5-5.1 POTASSIUM SERUM eCW1 (Formerly [facility], 1928[facility]1983) 9.1 8.5-10.1 CALCIUM LEVEL eCW1 ([facility]) 104 98-107 CHLORIDE LEVEL eCW1 ([facility]) 32 21-32 CARBON DIOXIDE LEVEL eCW1 ([facility]) 8 7-37 AST/SGOT eCW1 ([facility]) 11 12-78 ALT/SGPT eCW1 ([facility]) 0.5 0.2-1.0 BILIRUBIN,TOTAL eCW1 ([facility]ly [facility], 1928–1983) 6.9 6.4-8.2 TOTAL PROTEIN eCW1 ([facility]) 109 45-117 ALKALINE PHOSPHATASE eCW1 ([facility]) 3.2 3.2-5.2 ALBUMIN eCW1 ([facility]) 0.9 1.2-2.2 ALBUMIN/GLOBULIN RATIO eCW1 ([facility]) ID Date Data Source LIPID PANEL (CARDIAC RISK) 09/18/2020 12:00:00 AM EST eCW1 ( [facility]) Name Value Range Interpretation Code Description Data Poly rce(s) Supporting Document(s) Cholesterol [Moles/volume] in Serum or Plasma 168 <200 CHOLESTEROL LEVEL eCW1 ([facility]) Triglyceride [Mass/volume] in Serum or Plasma by calculation 128 <150 TRIGLYCERIDES LEVEL eCW1 ([facility]) 115 NON-HDL-C eCW1 ([facility]) Cholesterol in HDL [Moles/volume] in Serum or Plasma 53 >40 HDL CHOLESTEROL eCW1 ([facility]) Cholesterol in LDL [Mass/volume] in Serum or Plasma by calculation 89 <100 LDL CHOLESTEROL eCW1 ([facility]) 3.169 <5 CHOLESTEROL RISK RATIO eCW1 ([facility]) ID Date Data Source [id number] 09/18/2020 12:00:00 AM EST eCW1 (Replaced by [facility]) Name Value Range Interpretation Code Description Data Poly rce(s) Supporting Document(s) Hemoglobin A1c/Hemoglobin.total in Blood 5.2 eCW1 ([facility]) ID Date Data Source FREE T4 & TSH PANEL 09/18/2020 12:00:00 AM EST eCW1 (Replaced by [facility]) Name Value Range Interpretation Code Description Data Poly rce(s) Supporting Document(s) 2.490 0.358-3.740 THYROID STIMULATING HORM ONE eCW1 ([facility]) 1.17 0.76-1.46 FREE T4 eCW1 ([facility]) ID Date Data Source CBC with Differential 09/18/2020 12:00:00 AM EST eCW1 ([facility]) Name Value Range Interpretation Code Description Data Poly rce(s) Supporting Document(s) 8.2 4.0-10.0 WHITE BLOOD COUNT eCW1 ([facility]) 4.55 4.00-5.40 RED BLOOD COUNT eCW1 ([facility], 1928[facility]1983) 37.9 36.0-47.0 HEMATOCRIT eCW1 ([facility]) 11.8 12.0-15.5 HEMOGLOBIN eCW1 ([facility]) 83.3 80.0-96.0 MEAN CORPUSCULAR VOLUME e CW1 ([facility]) 25.9 27.0-33.0 MEAN CORPUSCULAR HEMOGLOB IN eCW1 ([facility]) 31.1 32.0-36.5 MEAN CORPUSCULAR HGB CONC eCW1 ([facility]) 345 150-450 PLATELET COUNT, AUTOMATED eCW1 ([facility]) 62.2 36.0-66.0 NEUTROPHILS % eCW1 ([facility]) 15.4 11.5-14.5 RED CELL DISTRIBUTION WID TH eCW1 ([facility]) 3.1 0.0-3.0 EOS % eCW1 ([facility]) 7.7 0.0-5.0 MONO % eCW1 ([facility]) 26.0 24.0-44.0 LYMPH % eCW1 ([facility]) 5.1 1.5-8.5 NEUTROPHILS # eCW1 ([facility]) 0.6 0.0-1.0 BASO % eCW1 ([facility]) 2.1 1.5-5.0 LYMPH # eCW1 ([facility]) 0.3 0.0-0.5 EOS # eCW1 ([facility]) 0.6 0.0-0.8 MONO # eCW1 ([facility]) 0.1 0.0-0.2 BASO # eCW1 ([facility]) Procedure Social History Code Duration Value Status Description Data Source(s ) Smoking 06/13/2021 12:00:00 AM EDT Never Smoker completed Never S moker eCW1 ([facility]) Smoking 06/13/2021 12:00:00 AM EDT Never Smoker completed Never S moker eCW1 ([facility]) Smoking 03/10/2021 12:00:00 AM EDT Never Smoker completed Never S moker eCW1 ([facility]) Smoking 03/10/2021 12:00:00 AM EDT Never Smoker completed Never S moker eCW1 ([facility]) Smoking 03/10/2021 12:00:00 AM EDT Never Smoker completed Never S moker eCW1 ([facility]) Smoking 10/24/2020 12:00:00 AM EST Never Smoker completed Never S moker eCW1 ([facility]) Smoking 09/18/2020 12:00:00 AM EST Never Smoker completed Never S moker eCW1 ([facility]) Vital Signs ID Date Data Source UNK Name Value Range Interpretation Code Description Data Source(s) Body weight [lb_av] eCW1 (Replaced by [facility]) Body height 66 [in_i] 66 [in_i] eCW1 (Replaced by [facility]) Body mass index (BMI) [Ratio] 36.96 kg/m2 36.96 kg/m2 eCW1 ([facility]) Heart rate 72 /min 72 /min eCW1 (Formerly [facility], 1928[facility]1983) Respiratory rate 18 /min 18 /min eCW1 ([facility]) Body temperature 97.0 [degF] 97.0 [degF] eCW1 ( [facility]) Systolic blood pressure 123 mm[Hg] 123 mm[Hg] e CW1 ([facility]) Diastolic blood pressure 83 mm[Hg] 83 mm[Hg] eCW1 ([facility]) Body weight 331 [lb_av] 331 [lb_av] eCW1 ([facility]) Body weight 150.14 kg 150.14 kg W1 (Replaced by [facility]) Body height 66 [in_i] 66 [in_i] eCW1 (Replaced by [facility]) Body mass index (BMI) [Ratio] 53.42 kg/m2 53.42 kg/m2 eCW1 ([facility]) Systolic blood pressure 142 mm[Hg] 142 mm[Hg] e CW1 ([facility]) Diastolic blood pressure 74 mm[Hg] 74 mm[Hg] eCW1 ([facility]) Body weight [lb_av] eCW1 (Replaced by [facility]) Body height 66 [in_i] 66 [in_i] eCW1 (Replaced by [facility]) Body mass index (BMI) [Ratio] 52.45 kg/m2 52.45 kg/m2 eCW1 ([facility]) Heart rate 73 /min 73 /min eCW1 ([facility]ly [facility], 1928[facility]) Respiratory rate 18 /min 18 /min eCW1 ([facility]) Body temperature 96.9 [degF] 96.9 [degF] eCW1 ( [facility]) Systolic blood pressure 160 mm[Hg] 160 mm[Hg] e CW1 ([facility]) Diastolic blood pressure 74 mm[Hg] 74 mm[Hg] eCW1 ([facility]) Patient Treatment Plan of Care Planned Activity Planned Date Details Description Data Source (s) 200 ACTUAT Albuterol 0.09 MG/ACTUAT Metered Dose Inhal er [ProAir] 03/10/2021 12:00:00 AM EDT eCW1 ([facility]) 200 ACTUAT Albuterol 0.09 MG/ACTUAT Metered Dose Inhal er [ProAir] 03/10/2021 12:00:00 AM EDT eCW1 ([facility]) 200 ACTUAT Albuterol 0.09 MG/ACTUAT Metered Dose Inhal er [ProAir] 03/10/2021 12:00:00 AM EDT eCW1 ([facility]) 200 ACTUAT Albuterol 0.09 MG/ACTUAT Metered Dose Inhal er [ProAir] 03/10/2021 12:00:00 AM EDT eCW1 ([facility]) 200 ACTUAT Albuterol 0.09 MG/ACTUAT Metered Dose Inhal er [ProAir] 03/10/2021 12:00:00 AM EDT eCW1 ([facility])
--- OUTSIDE RECORDS SUMMARY | 2021-07-15 17:26 | CCD ---
Author Author [facility] Organization [facility] Address Unknown Phone Unavailable Care Team Providers Care Plant Technical Specialist Name Role Phone Felton Mckenzie MD Unavailable [...] Mckenzie MD Unavailable Unavailable Albertherese, D Karoline CAKE PULLER Unavailable Unavailable Alberry, D Karoline CAKE PULLER Unavailable Unavailable Alberry, D Karoline CAKE PULLER Unavailable Unavailable Alberry, D Karoline CAKE PULLER Unavailable Unavailable Alberry, D Karoline CAKE PULLER Unavailable Unavailable Alberry, D Karoline CAKE PULLER Unavailable Unavailable Alberry, D Karoline CAKE PULLER Unavailable Unavailable Alberry, D Karoline CAKE PULLER Unavailable Unavailable Alberry, D Karoline CAKE PULLER Unavailable Unavailable Alberry, D Karoline CAKE PULLER Unavailable Unavailable Alberry, D Karoline CAKE PULLER Unavailable Unavailable Alberry, D Karoline CAKE PULLER Unavailable Unavailable Alberry, D Karoline CAKE PULLER Unavailable Unavailable Alberry, D Karoline CAKE PULLER Unavailable Unavailable Alberry, D Karoline CAKE PULLER Unavailable Unavailable Alberry, D Karoline CAKE PULLER Unavailable Unavailable Alberry, D Karoline CAKE PULLER Unavailable Unavailable Alberry, D Karoline CAKE PULLER Unavailable Unavailable Alberry, D Karoline CAKE PULLER Unavailable Unavailable Alberry, D Karoline CAKE PULLER Unavailable Unavailable Alberry, D Karoline CAKE PULLER Unavailable Unavailable Alberry, D Karoline CAKE PULLER Unavailable Unavailable Alberry, D Karoline CAKE PULLER Unavailable Unavailable Alberry, D Karoline CAKE PULLER Unavailable Unavailable Alberry, D Karoline CAKE PULLER Unavailable Unavailable Alberry, D Karoline CAKE PULLER Unavailable Unavailable Alberry, D Karoline CAKE PULLER Unavailable Unavailable Alberry, D Karoline CAKE PULLER Unavailable Unavailable Alberry, D Karoline CAKE PULLER Unavailable Unavailable Alberry, D Karoline CAKE PULLER Unavailable Unavailable Alberry, D Karoline CAKE PULLER Unavailable Unavailable Alberry, D Karoline CAKE PULLER Unavailable Unavailable Alberry, D Karoline CAKE PULLER Unavailable Unavailable Alberry, D Karoline CAKE PULLER Unavailable Unavailable Alberry, D Karoline CAKE PULLER Unavailable Unavailable Alberry, D Karoline CAKE PULLER Unavailable Unavailable Alberry, D Karoline CAKE PULLER Unavailable Unavailable Alberry, D Karoline CAKE PULLER Unavailable Unavailable Alberry, D Karoline CAKE PULLER Unavailable Unavailable Alberry, D Karoline CAKE PULLER Unavailable Unavailable Alberry, D Karoline CAKE PULLER Unavailable Unavailable Alberry, D Karoline CAKE PULLER Unavailable Unavailable Alberry, D Karoline CAKE PULLER Unavailable Unavailable Alberry, D Karoline CAKE PULLER Unavailable Unavailable Alberry, D Karoline CAKE PULLER Unavailable Unavailable Alberry, D Karoline CAKE PULLER Unavailable Unavailable Alberry, D Karoline CAKE PULLER Unavailable Unavailable Alberry, D Karoline CAKE PULLER Unavailable Unavailable Alberry, D Karoline CAKE PULLER Unavailable Unavailable Alberry, D Karoline CAKE PULLER Unavailable Unavailable Alberry, D Karoline CAKE PULLER Unavailable Unavailable Alberry, D Karoline CAKE PULLER Unavailable Unavailable Alberry, D Karoline CAKE PULLER Unavailable Unavailable Alberry, D Karoline CAKE PULLER Unavailable Unavailable Alberry, D Karoline CAKE PULLER Unavailable Unavailable Re-disclosure Warning The records that [...] is protected by Article 27-F of the [facility] Public Health law. If you continue you may have access to information: Regarding HIV / AIDS; Provided by facilities licensed or operated by the [facility] Office of Mental Health; or Provided by the [facility] Office for People With Developmental Disabilities. If such information is present, then the following [facility] mandated warning applies: This information [...] law may result in a fine or half-way sentence or both. A general authorization for the release of medical or other information is NOT sufficient authorization for further disc losure. Family History Family Member Name Family Member Gender Family Member Status Date o f Status Description Data Source(s) Unknown Male Problem MEDENT ([facility]) () Unknown Unknown Problem MEDENT ([facility] Unknown Female Problem MEDENT ([facility]) Unknown Female Problem MEDENT ([facility]) Unknown Female Problem MEDENT ([facility] ) Encounters Encounter Providers Location Date Indications Data Source(s ) Unknown [address] [facility] [address] 07/09/2021 12:00:00 AM EST eCW1 ([facility]) Unknown [address] [facility] [address] 07/08/2021 12:00:00 AM EST eCW1 ([facility]) Unknown [address] [facility] [address] 06/03/2021 12:00:00 AM EDT eCW1 ([facility]) Outpatient [address] [facility] [address] 03/10/2021 12:00:00 AM EDT eCW1 ([facility]) Unknown [address] [facility] [address] 03/10/2021 12:00:00 AM EDT eCW1 ([facility]) Outpatient Attender: Karoline Wesley FNPReferrer: Jona murillo MD 10/24/2020 02:00:00 PM [facility] Outpatient [address] [facility] [address] 10/24/2020 12:00:00 AM EST eCW1 ([facility]) Outpatient [address] [facility] [address] 09/18/2020 12:00:00 AM EST eCW1 ([facility]) Immunizations Vaccine Date Status Description Data Source(s) influenza, recombinant, quadrIvalent,injectable, prese rvative free 09/18/2020 08:53:00 AM EST completed eCW1 ([facility]) influenza, recombinant, quadrIvalent,injectable, prese rvative free 09/18/2020 08:53:00 AM EST completed eCW1 ([facility]) influenza, recombinant, quadrIvalent,injectable, prese rvative free 09/18/2020 08:53:00 AM EST completed eCW1 ([facility]) influenza, recombinant, quadrIvalent,injectable, prese rvative free 09/18/2020 08:53:00 AM EST completed eCW1 ([facility]) influenza, recombinant, quadrIvalent,injectable, prese rvative free 09/18/2020 08:53:00 AM EST completed eCW1 ([facility]) influenza, recombinant, quadrIvalent,injectable, prese rvative free 09/18/2020 08:53:00 AM EST completed eCW1 ([facility]) influenza, recombinant, quadrIvalent,injectable, prese rvative free 09/18/2020 08:53:00 AM EST completed eCW1 ([facility]) Medications Medication Brand Name Start Date Product [...] TABLET BY MOUTH EVERY DAY SOLD: 05/10/2021 [facility] 20 mg 05/05/2021 12:00:00 AM EDT [...] oAir HFA 108 (90 Base) mcg/act eCW1 ([facility]) 200 ACTUAT Albuterol 0.09 MG/ACTUAT Mete red Dose Inhaler [ProAir] ProAir HFA 108 (90 Base) mcg/act ProAir HFA 108 (90 Base) mcg/act 03/10/2021 12:00:00 AM EDT 2.0 {puffs_as_needed} active eCW1 ([facility]) 200 ACTUAT Albuterol 0.09 MG/ACTUAT Mete red Dose Inhaler [ProAir] ProAir HFA 108 (90 Base) mcg/act ProAir HFA 108 (90 Base) mcg/act 03/10/2021 12:00:00 AM EDT 2.0 {puffs_as_needed} active Pr oAir HFA 108 (90 Base) mcg/act eCW1 ([facility]) 90 mcg/actuation 03/10/2021 12:00:00 AM EDT HFA [...] oAir HFA 108 (90 Base) mcg/act eCW1 ([facility]) 200 ACTUAT Albuterol 0.09 MG/ACTUAT Mete red Dose Inhaler [ProAir] ProAir HFA 108 (90 Base) mcg/act ProAir HFA 108 (90 Base) mcg/act 03/10/2021 12:00:00 AM EDT 2.0 {puffs_as_needed} active Pr oAir HFA 108 (90 Base) mcg/act eCW1 ([facility]) 0.005 % 02/01/2021 12:00:00 AM EDT drops [...] type / Coverage type Policy ID Covered alliance party ID Covered alliance party's relationship to allen Policy Allen Plan Information MVP (pr) Commercial [id number] Self MVP (pr) Commercial [id number] Self [id number] [facility] [id number] Self [id number] [place] Med[place] [id number] Self [id number] [place] [id number] Self [id number] [place] [id number] Self [id number] [place] [id number] Self [id number] [place] [id number] Self [id number] [place] [id number] Self [id number] [place] [id number] Self [id number] [place] [id number] Self [id number] [place] [id number] [place] [id number] Self [id number] [place] [id number] Self [id number] [place] [id number] Self [id number] [facility] MEDICAID [id number] S [id number] UNHC COMMUNITY PLAN MCDHMO [id number] SP [id number] UNHC COMMUNITY PLAN MCDHMO [id number] SP [id number] UNHC COMMUNITY PLAN MCDHMO [id number] SP [id number] [facility] MEDICAID [id number] S [id number] [facility] Community Plan Commercial [id number] Self [id number] [facility] MEDICAID [id number] S [id number] [facility]-Medicaid [id number] [facility]-Medicaid [id number] [facility]-Medicaid [id number] [facility]-Medicaid [id number] [facility]-Medicaid [id number] [facility]-Medicaid [id number] [facility]-Medicaid [id number] [facility]-Medicaid [id number] ANSI-Medicaid [id number] ANSI-Medicaid [id number] ANSI-Medicaid [id number] ANSI-Medicaid [id number] ANSI-Medicaid [id number] ANSI-Medicaid [id number] ANSI-Medicaid [id number] ANSI-Medicaid [id number] ANSI-Medicaid [id number] ANSI-Medicaid [id number] ANSI-Medicaid [id number] ANSI-Medicaid [id number] ANSI-Medicaid [id number] ANSI-Medicaid [id number] ANSI-Medicaid [id number] ANSI-Medicaid [id number] ANSI-Medicaid [id number] ANSI-Medicaid [id number] ANSI-Medicaid [id number] ANSI-Medicaid [id number] [facility] Health Maintenance Organization ([facility] [id number] [facility] [id number] [employer] MEDICAID [id number] S [id number] ANSI-Medicaid [id number] ANSI-Medicaid [id number] ANSI-Medicaid [id number] ANSI-Medicaid [id number] ANSI-Medicaid [id number] ANSI-Medicaid [id number] ANSI-Medicaid [id number] ANSI-Medicaid [id number] ANSI-Medicaid [id number] ANSI-Medicaid [id number] ANSI-Medicaid [id number] ANSI-Medicaid [id number] ANSI-Medicaid [id number] ANSI-Medicaid [id number] ANSI-Medicaid [id number] ANSI-Medicaid [id number] ANSI-Medicaid [id number] ANSI-Medicaid [id number] ANSI-Medicaid [id number] ANSI-Medicaid [id number] ANSI-Medicaid [id number] [facility] [id number] [facility] Maintenance [facility] ([facility]) [id number] Self [id number] ANSI-Medicaid [id number] ANSI-Medicaid [id number] ANSI-Medicaid [id number] ANSI-Medicaid [id number] ANSI-Medicaid [id number] [facility] [id number] [employer] HEALTHCARE MEDICAID [id number] S [id number] [facility] Maintenance [facility] ([facility]) [id number] Self [id number] [facility] Maintenance [facility] ([facility]) [id number] Self [id number] [facility] Community Plan Commercial [id number] Self [id number] MEDICAID [id number] SP [id number] [facility] Community Plan Commercial [id number] Self MVP (pr) Commercial [id number] Self SELF PAY SP [id number] S [id number] [facility] PHY [id number] SP [id number] HMO BLUE [id number] SP [id number] UN COMMUNITY PLAN MCDHMO [id number] SP [id number] [facility] O [id number] S [id number] MEDICAID [id number] S [id number] [facility] Health Maintenance Organization (HMO) [id number] Self [id number] ANSI-Medicaid [id number] ANSI-Medicaid [id number] ANSI-Medicaid [id number] ANSI-Medicaid [id number] ANSI-Medicaid [id number] ANSI-Medicaid [id number] ANSI-Medicaid [id number] ANSI-Medicaid [id number] ANSI-Medicaid [id number] ANSI-Medicaid [id number] ANSI-Medicaid [id number] ANSI-Medicaid [id number] ANSI-Medicaid [id number] ANSI-Medicaid [id number] ANSI-Medicaid [id number] ANSI-Medicaid [id number] ANSI-Medicaid [id number] ANS-Medicaid [id number] Problems, Conditions, and Diagnoses Code Display Name Description Problem Type Effective Dates Data Source(s) R59.0 Localized enlarged lymph nodes LOCALIZED ENLARGED LYMP H NODES Diagnosis 10/24/2020 02:00:00 PM [facility] E66.01 [id number] Morbid (severe) obesity due to excess kandice ories Problem 10/24/2020 12:00:00 AM EST [facility] ([facility]) Surgeries/Procedures No Information Results ID Date Data Source [id number] 10/24/2020 02:52:00 PM [facility] DATE OF EXAMINATION: 10/24/2020 13:53 ES [...] rce(s) Supporting Document(s) ID Date Data Source [facility] DIGITAL / MARU BILATERAL MAMMO SCREENING (Ultraso und if indicated) 10/24/2020 12:00:00 AM EST eCW1 ([facility]) Name Value Range Interpretation Code Description Data Poly rce(s) Supporting Document(s) [facility] DIGITAL / MARU BILAT ERAL MAMMO SCREENING (Ultrasound if indicated) eCW1 ([facility]) ID Date Data Source Comprehensive Metabolic Profile (CMP) 09/18/2020 12:00:00 AM EST eCW1 ([facility]) Name Value Range Interpretation Code Description Data Poly rce(s) Supporting Document(s) 16 7-18 BLOOD UREA NITROGEN eCW1 ([facility]) 84 70-100 GLUCOSE, FASTING eCW1 ([facility]) 0.84 0.55-1.30 CREATININE FOR GFR eCW1 ([facility]) > 60.0 >51 GLOMERULAR FILTRATION RATE eCW 1 ([facility]) 142 136-145 SODIUM LEVEL eCW1 ([facility]) 3.4 3.5-5.1 POTASSIUM SERUM eCW1 ([facility]) 9.1 8.5-10.1 CALCIUM LEVEL eCW1 ([facility]) 104 98-107 CHLORIDE LEVEL eCW1 ([facility]) 32 21-32 CARBON DIOXIDE LEVEL eCW1 ([facility]) 8 7-37 AST/SGOT eCW1 ([facility]) 11 12-78 ALT/SGPT eCW1 ([facility]) 0.5 0.2-1.0 BILIRUBIN,TOTAL eCW1 ([facility]) 6.9 6.4-8.2 TOTAL PROTEIN eCW1 ([facility]) 109 45-117 ALKALINE PHOSPHATASE eCW1 ([facility]) 3.2 3.2-5.2 ALBUMIN eCW1 ([facility]) 0.9 1.2-2.2 ALBUMIN/GLOBULIN RATIO eCW1 ([facility]) ID Date Data Source LIPID PANEL (CARDIAC RISK) 09/18/2020 12:00:00 AM EST eCW1 ( [facility]) Name Value Range Interpretation Code Description Data Poly rce(s) Supporting Document(s) Cholesterol [Moles/volume] in Serum or Plasma 168 <200 CHOLESTEROL LEVEL eCW1 ([facility]) Triglyceride [Mass/volume] in Serum or Plasma by calculation 128 <150 TRIGLYCERIDES LEVEL eCW1 ([facility]) 115 NON-HDL-C eCW1 ([facility]) Cholesterol in HDL [Moles/volume] in Serum or Plasma 53 >40 HDL CHOLESTEROL eCW1 ([facility]) Cholesterol in LDL [Mass/volume] in Serum or Plasma by calculation 89 <100 LDL CHOLESTEROL eCW1 ([facility]) 3.169 <5 CHOLESTEROL RISK RATIO eCW1 ([facility]) ID Date Data Source [id number] 09/18/2020 12:00:00 AM EST eCW1 ([facility]) Name Value Range Interpretation Code Description Data Poly rce(s) Supporting Document(s) Hemoglobin A1c/Hemoglobin.total in Blood 5.2 eCW1 ([facility]) ID Date Data Source FREE T4 & TSH PANEL 09/18/2020 12:00:00 AM EST eCW1 ([facility]) Name Value Range Interpretation Code Description Data Poly rce(s) Supporting Document(s) 2.490 0.358-3.740 THYROID STIMULATING HORM ONE eCW1 ([facility]) 1.17 0.76-1.46 FREE T4 eCW1 ([facility]) ID Date Data Source CBC with Differential 09/18/2020 12:00:00 AM EST eCW1 ([facility]) Name Value Range Interpretation Code Description Data Poly rce(s) Supporting Document(s) 8.2 4.0-10.0 WHITE BLOOD COUNT eCW1 ([facility]) 4.55 4.00-5.40 RED BLOOD COUNT eCW1 ([facility]) 37.9 36.0-47.0 HEMATOCRIT eCW1 ([facility]) 11.8 12.0-15.5 HEMOGLOBIN eCW1 ([facility]) 83.3 80.0-96.0 MEAN CORPUSCULAR VOLUME e CW1 ([facility]) 25.9 27.0-33.0 MEAN CORPUSCULAR HEMOGLOB IN eCW1 ([facility]) 31.1 32.0-36.5 MEAN CORPUSCULAR HGB CONC eCW1 ([facility]) 345 150-450 PLATELET COUNT, AUTOMATED eCW1 ([facility]) 62.2 36.0-66.0 NEUTROPHILS % eCW1 ([facility]) 15.4 11.5-14.5 RED CELL DISTRIBUTION WID TH eCW1 ([facility]) 3.1 0.0-3.0 EOS % eCW1 ([facility]) 7.7 0.0-5.0 MONO % eCW1 ([facility]) 26.0 24.0-44.0 LYMPH % eCW1 ([facility]) 5.1 1.5-8.5 NEUTROPHILS # eCW1 ([facility]) 0.6 0.0-1.0 BASO % eCW1 ([facility]) 2.1 1.5-5.0 LYMPH # eCW1 ([facility]) 0.3 0.0-0.5 EOS # eCW1 ([facility]) 0.6 0.0-0.8 MONO # eCW1 ([facility]) 0.1 0.0-0.2 BASO # eCW1 ([facility]) Procedure Social History Code Duration Value Status Description Data Source(s ) Smoking 06/13/2021 12:00:00 AM EDT Never Smoker completed Never S moker eCW1 ([facility]) Smoking 06/13/2021 12:00:00 AM EDT Never Smoker completed Never S moker eCW1 ([facility]) Smoking 03/10/2021 12:00:00 AM EDT Never Smoker completed Never S moker eCW1 ([facility]) Smoking 03/10/2021 12:00:00 AM EDT Never Smoker completed Never S moker eCW1 ([facility]) Smoking 03/10/2021 12:00:00 AM EDT Never Smoker completed Never S moker eCW1 ([facility]) Smoking 10/24/2020 12:00:00 AM EST Never Smoker completed Never S moker eCW1 ([facility]) Smoking 09/18/2020 12:00:00 AM EST Never Smoker completed Never S moker eCW1 ([facility]) Vital Signs ID Date Data Source UNK Name Value Range Interpretation Code Description Data Source(s) Body weight [lb_av] eCW1 ([facility]) Body height 66 [in_i] 66 [in_i] eCW1 ([facility]) Body mass index (BMI) [Ratio] 36.96 kg/m2 36.96 kg/m2 eCW1 ([facility]) Heart rate 72 /min 72 /min eCW1 ([facility]) Respiratory rate 18 /min 18 /min eCW1 ([facility], [facility]) Body temperature 97.0 [degF] 97.0 [degF] eCW1 ( [facility]) Systolic blood pressure 123 mm[Hg] 123 mm[Hg] e CW1 ([facility]) Diastolic blood pressure 83 mm[Hg] 83 mm[Hg] eCW1 ([facility]) Body weight 331 [lb_av] 331 [lb_av] eCW1 ([facility]) Body weight 150.14 kg 150.14 kg W1 ([facility]) Body height 66 [in_i] 66 [in_i] eCW1 ([facility]) Body mass index (BMI) [Ratio] 53.42 kg/m2 53.42 kg/m2 eCW1 ([facility]) Systolic blood pressure 142 mm[Hg] 142 mm[Hg] e CW1 ([facility]) Diastolic blood pressure 74 mm[Hg] 74 mm[Hg] eCW1 ([facility]) Body weight [lb_av] eCW1 ([facility]) Body height 66 [in_i] 66 [in_i] eCW1 ([facility]) Body mass index (BMI) [Ratio] 52.45 kg/m2 52.45 kg/m2 eCW1 ([facility]) Heart rate 73 /min 73 /min eCW1 ([facility]) Respiratory rate 18 /min 18 /min eCW1 ([facility], [facility]) Body temperature 96.9 [degF] 96.9 [degF] eCW1 ( [facility]) Systolic blood pressure 160 mm[Hg] 160 mm[Hg] e CW1 ([facility]) Diastolic blood pressure 74 mm[Hg] 74 mm[Hg] eCW1 ([facility]) Patient Treatment Plan of Care Planned Activity Planned Date Details Description Data Source (s) 200 ACTUAT Albuterol 0.09 MG/ACTUAT Metered Dose Inhal er [ProAir] 03/10/2021 12:00:00 AM EDT eCW1 (Formerly [facility]) 200 ACTUAT Albuterol 0.09 MG/ACTUAT Metered Dose Inhal er [ProAir] 03/10/2021 12:00:00 AM EDT eCW1 (Formerly [facility]) 200 ACTUAT Albuterol 0.09 MG/ACTUAT Metered Dose Inhal er [ProAir] 03/10/2021 12:00:00 AM EDT eCW1 (Formerly [facility]) 200 ACTUAT Albuterol 0.09 MG/ACTUAT Metered Dose Inhal er [ProAir] 03/10/2021 12:00:00 AM EDT eCW1 (Formerly [facility]) 200 ACTUAT Albuterol 0.09 MG/ACTUAT Metered Dose Inhal er [ProAir] 03/10/2021 12:00:00 AM EDT eCW1 (Formerly [facility])
[2021-07-15] MEDS ORDERED: ISOVUE-370 76% 100ML VIAL As Ordered ONE (17:52)
--- NOTE | 2021-07-15 18:06 | HPEPDOC ---
General Date of Admission Jul 15, 2021 at 16:50 Date of Service: Jul 15, 2021 Chief Complaint The patient is a 60-year-old female admitted with a reason for visit of Constipations;Covid-19;Hypoxia. History of Present Illness 60-year-old morbidly obese non-smoker female with past medical history of VINCE does not use CPAP, hypothyroid, hyperlipidemia, overactive bladder has been sick for 2 weeks patient started initially with cough then after few days of cough started having nausea and vomiting with poor appetite. Has not had any bowel movement for 2 weeks. Patient also complains of right lower quadrant pain for 4 days sharp aching in nature rates it about 5 x 10 in intensity. Also has some soreness in the left lower quadrant. Patient has been exposed to Covid through daughter daughter's children and son-in-law. Patient self tested with home kit on 07/10/2021 and was positive. Today she called the EMS because of extreme weakness, tiredness, abdominal pain. After arrival to the ED she was noted to be at 87% in room air. Covid test was positive in ED. Chest x-ray shows bilateral infiltrates. Patient was admitted for Covid with hypoxic respiratory failure as well as abdominal pain which is to be evaluated. Home Medications Scheduled Calcium Carbonate/Vitamin D3 (Calcium 600-Vit D3 800 Tablet) 1 Each Tablet, 1 TAB PO QHS, (Reported) Chlorthalidone (Chlorthalidone) 25 Mg Tablet, 12.5 MG PO DAILY, (Reported) Cholecalciferol (Vitamin D3) (Vitamin D3) 5,000 Unit Capsule, 5,000 UNIT PO DAILY, (Reported) Levothyroxine Sodium (Synthroid) 50 Mcg Tab, 50 MCG PO DAILY, (Reported) Methenamine Hippurate (Methenamine Hippurate) 1 Gm Tablet, 1 GM PO BID, (Reported) Mirabegron (Myrbetriq) 50 Mg Tab, 50 MG PO DAILY, (Reported) Oxybutynin Chloride (Oxybutynin Chloride ER) 10 Mg Tab.er.24, 10 MG PO QHS, (Reported) Ranitidine HCl (Ranitidine HCl) 150 Mg Tablet, 2 TAB PO QHS, (Reported) Simvastatin (Simvastatin) 20 Mg Tab, 20 MG PO DAILY, (Reported) Tizanidine HCl (Tizanidine HCl) 4 Mg Capsule, 4 MG PO QHS, (Reported) Allergies Coded Allergies: TAPE (Verified Allergy, Intermediate, red spots, 04/06/19) Past Medical History Medical History Morbid obesity BMI of 55 VINCE does not use CPAP Hypothyroid Overactive bladder Recurrent bladder infections Vitamin D deficiency GERD Hyperlipidemia Surgical History Bladder surgery Family History Significant Family History: Heart disease (Father and mother had a heart problem), Lung disease (Father and mother had lung disease) Social History * Smoker: non-smoker Alcohol: rarely Drugs: denies A-FIB/CHADSVASC A-FIB History Current/History of A-Fib/PAF?: No Review of Systems Constitutional: Reports: Chills, Malaise, Weakness, Fatigue Eyes: Denies: Pain, Vision change ENT: Reports: Head Aches, Sinus Congestion, Sore Throat Skin: Denies: Rash, Lesions, Breakdown Pulmonary: Reports: Dyspnea, Cough Cardiovascular: Denies: Chest Pain, Palpitations, Orthopnea, Paroxysmal Noc. Dyspnea Gastrointestinal: Reports: Nausea, Vomiting, Abdominal Pain, Constipation Genitourinary: Reports: Frequency, Incontinence Hematologic: Denies: Bruising, Bleeding Excessively Musculoskeletal: Reports: Back Pain, Muscle Pain; Denies: Neck Pain, Joint Pain, Spasms Physical Examination General Exam: Positive: Alert, Cooperative, No Acute Distress Eye Exam: Positive: PERRLA, Conjunctiva & lids normal, EOMI; Negative: Sclera icteric ENT Exam: Positive: Atraumatic, Mucous membr. moist/pink, Pharynx Normal Neck Exam: Positive: Supple; Negative: JVD, thyromegaly Chest Exam: Positive: Normal air movement, Diminished, Other (Scattered bilateral crackles) Heart Exam: Positive: Rate Normal, Regular Rhythm, Normal S1, Normal S2; Negative: Murmurs, Rubs Abdomen Exam: Positive: Normal bowel sounds, Soft, Tenderness (Right iliac fossa), Other (Morbidly obese) Extremity Exam: Negative: Clubbing, Cyanosis, Edema Skin Exam: Positive: Nl turgor and temperature; Negative: Breakdown, Lesion Neuro Exam: Positive: Normal Speech, Strength at 5/5 X4 ext, Normal Tone Psych Exam: Positive: Memory Intact, Oriented x 3 Vital Signs Vital Signs Date Time Temp Pulse Resp B/P (MAP) Pulse Ox O2 Delivery O2 Flow Rate FiO2 07/15/21 17:13 69 97 07/15/21 17:00 153/86 (108) 07/15/21 14:59 99.6 18 Room Air Laboratory Data Labs 24H Laboratory Tests 2 07/15/21 15:09: Immature Granulocyte % (Auto) 1.4, Neutrophils (%) (Auto) 84.2H, Lymphocytes (%) (Auto) 9.3L, Monocytes (%) (Auto) 5.0, Eosinophils (%) (Auto) 0.0, Basophils (%) (Auto) 0.1, Neutrophils # (Auto) 6.0, Lymphocytes # (Auto) 0.7L, Monocytes # (Auto) 0.4, Eosinophils # (Auto) 0.0, Basophils # (Auto) 0.0, Nucleated Red Blood Cells % (auto) 0.0, Anion Gap 9, Glomerular Filtration Rate > 60.0, Lactic Acid Level 1.1, Calcium Level 7.9L, Magnesium Level 2.3, Ferritin 303H, Total Bilirubin 0.7, Aspartate Amino Transf (AST/SGOT) 58H, Alanine Aminotransferase (ALT/SGPT) 27, Alkaline Phosphatase 58, Lactate Dehydrogenase 524H, Total Creatine Kinase 796H, Creatine Kinase MB < 1.0, Creatine Kinase MB Relative Index 0.13, Troponin I < 0.02, C-Reactive Protein, Quantitative 10.80H, Total Protein 6.3L, Albumin 2.5L, Albumin/Globulin Ratio 0.7L, Procalcitonin 0.05, Coronavirus (COVID-19)(PCR) POSITIVEA, Influenza Type A (RT-PCR) NEGATIVE, Influenza Type B (RT-PCR) NEGATIVE, Respiratory Syncytial Virus (PCR) NEGATIVE 07/15/21 15:10: Prothrombin Time 13.5, Prothromb Time International Ratio 0.99, Activated Partial Thromboplast Time 24.3L, Fibrinogen 578H, D-Dimer, Quantitative 3510.93H CBC/BMP Laboratory Tests 07/15/21 15:09 Microbiology Microbiology 07/15/21 Blood Culture, Received Pending 07/15/21 Blood Culture, Received Pending Assessment/Plan 60-year-old morbidly obese non-smoker female with past medical history of VINCE does not use CPAP, hypothyroid, hyperlipidemia, overactive bladder has been sick for 2 weeks patient started initially with cough then after few days of cough started having nausea and vomiting with poor appetite. Has not had any bowel movement for 2 weeks. Patient also complains of right lower quadrant pain for 4 days sharp aching in nature rates it about 5 x 10 in intensity. Also has some soreness in the left lower quadrant. Patient has been exposed to Covid through daughter daughter's children and son-in-law. Patient self tested with home kit on 07/10/2021 and was positive. Today she called the EMS because of extreme weakness, tiredness, abdominal pain. After arrival to the ED she was noted to be at 87% in room air. Covid test was positive in ED. Chest x-ray shows bilateral infiltrates. Patient was admitted for Covid with hypoxic respiratory failure as well as abdominal pain which is to be evaluated. Covid with the hypoxic respiratory failure Patient obviously has underlying obstructive sleep apnea I am not sure if she has obesity hypoventilation or not We will give dexamethasone albuterol, aspirin, remdesivir Covid labs ordered DVT prophylaxis with Lovenox. Incentive spirometry Encourage awake proning Dehydration We will give IV fluid Hypokalemia Replaced Abdominal pain Most likely due to constipation and musculoskeletal pain from nausea and vomiting. Patient reports has not had any bowel movement for 2 weeks We will get a CT abdomen and pelvis We will order bowel regimen GERD We will give PPI Hyperlipidemia Continue statin Morbid obesity with a VINCE Untreated May also have underlying obesity hypoventilation Hypothyroid Continue Synthroid Plan / VTE VTE Prophylaxis Ordered?: Yes Sari Chan MD Jul 15, 2021 18:06
--- NOTE | 2021-07-15 19:06 | REPVR ---
PROCEDURE INFORMATION: Exam: CT Abdomen And Pelvis With Contrast Exam date and time: 07/15/2021 6:02 PM Age: 60 years old Clinical indication: Abdominal pain; Additional info: Abd pain TECHNIQUE: Imaging protocol: Computed tomography of the abdomen and pelvis with contrast. Radiation optimization: All CT scans at this facility use at least one of these dose optimization techniques: automated exposure control; mA and/or kV adjustment per patient size (includes targeted exams where dose is matched to clinical indication); or iterative reconstruction. Contrast material: ISOVUE 370; Contrast volume: 100 ml; Contrast route: INTRAVENOUS (IV); COMPARISON: CR PORTABLE CHEST X-RAY 07/15/2021 3:09 PM FINDINGS: Lungs: The there are patchy in hazy areas of increased density in both lung bases greater on the right which may represent areas of interstitial pneumonic infiltrate. Heart: The heart is normal in size. Liver: There is mild fatty infiltration of the liver. Gallbladder and bile ducts: Normal appearing gallbladder. Normal common bile duct. Pancreas: Normal appearing pancreas. Spleen: Normal appearing spleen. Adrenal glands: Normal adrenal glands. Kidneys and ureters: There are a few tiny cysts right left kidney. There is enhancement of both kidneys. There is no evidence of hydronephrosis. Stomach and bowel: The cecum is in the right pelvis and the appendix appears within the range of normal. Appendix: No evidence of appendicitis. Intraperitoneal space: There is no evidence of pneumoperitoneum. Vasculature: There is opacification of the SMV and the SMA. There is opacification of the aorta which appears intact. Lymph nodes: There is no evidence of lymphadenopathy. Urinary bladder: Normal urinary bladder. Reproductive: The patient is status post hysterectomy. Bones/joints: There is facet hypertrophy lower lumbar spine. Soft tissues: There is no evidence of soft tissue abnormality. IMPRESSION: 1. No evidence of bowel obstruction. 2. No evidence of inflammation. COMMENTS: Consistent with the [employer]'s Incidental Findings Committee white paper (J Am Sohail Radiol 2018): Any incidental renal lesion less than 1 cm or classified as too small to characterize, or any incidental cystic renal lesion characterized as simple-appearing, is likely benign. No follow-up imaging is recommended for these lesions per consensus recommendations based on imaging criteria. Electronically signed by: Kalia Christianson On 07/15/2021 19:06:07 PM
[2021-07-15] MEDS: ALBUTEROL 90 MCG/ACT 8GM HFA INHALER INH SCH (20:00)
[2021-07-15] MEDS ORDERED: REMDESIVIR 200 MG in NS 250 ML IV ONE (22:00)
[2021-07-16] VITALS (7 sets, daily range): BP systolic 126–141; BP diastolic 58–63; O2SAT 95–96
[2021-07-16] MEDS ORDERED: SODIUM CHLORIDE 0.9% INJ 10 ML SYR IV ONE
[2021-07-16] MEDS: dexameTHASONE 4 MG/ML 1ML VIAL (J1100 PER 1MG) IV SCH ×2 (00:45→20:54)
[2021-07-16] MEDS: PANTOPRAZOLE 40MG VIAL (C9113 PER 1) IV SCH ×2 (00:45→20:54)
[2021-07-16] MEDS: SENOKOT S TAB PO SCH ×3 (00:45→20:54)
[2021-07-16] MEDS: NS 1,000 ML IV SCH ×3 (00:46→10:03)
[2021-07-16] MEDS ORDERED: PROAAER10 INH (03:08)
[2021-07-16] MEDS ORDERED: ESTR1CRE PV (03:08)
[2021-07-16] MEDS ORDERED: XALA0.007 OU (03:08)
[2021-07-16] MEDS ORDERED: D3 M1CAP2 PO (03:08)
[2021-07-16] MEDS ORDERED: BRIM0.2S13 OU (03:08)
[2021-07-16] MEDS ORDERED: HOME MED LIST COMPLETE! XX SCH (03:10)
[2021-07-16] MEDS: ALBUTEROL 90 MCG/ACT 8GM HFA INHALER INH SCH ×4 (08:10→20:05)
[2021-07-16 08:29] LABS: BASO % 0.3 % (0.0-1.0); HEMATOCRIT 36.4 % (36.0-47.0); HEMOGLOBIN 11.8 g/dl (12.0-15.5); LYMPH # 0.8 10^3/uL (1.5-5.0); LYMPH % 11.3 % (24.0-44.0); MEAN CORPUSCULAR HEMOGLOBIN 25.8 pg (27.0-33.0); MEAN CORPUSCULAR HGB CONC 32.4 g/dl (32.0-36.5); MEAN CORPUSCULAR VOLUME 79.5 fl (80.0-96.0); MONO # 0.3 10^3/uL (0.0-0.8); MONO % 4.3 % (2.0-8.0); NEUTROPHILS # 5.5 10^3/uL (1.5-8.5); NEUTROPHILS % 82.6 % (36.0-66.0); PLATELET COUNT, AUTOMATED 207 10^3/uL (150-450); RED BLOOD COUNT 4.58 10^6/uL (4.00-5.40); WHITE BLOOD COUNT 6.7 10^3/uL (4.0-10.0)
[2021-07-16 09:23] LABS: ALBUMIN 2.3 GM/DL (3.2-5.2); ALT/SGPT 24 U/L (12-78); BILIRUBIN,DIRECT 0.2 MG/DL (0.0-0.2); BILIRUBIN,TOTAL 0.6 MG/DL (0.2-1.0); BLOOD UREA NITROGEN 13 MG/DL (7-18); CALCIUM LEVEL 8.1 MG/DL (8.8-10.2); CARBON DIOXIDE LEVEL 25 MEQ/L (21-32); CHLORIDE LEVEL 103 MEQ/L (98-107); CREATININE FOR GFR 0.73 MG/DL (0.55-1.30); GLOMERULAR FILTRATION RATE > 60.0 (>45); GLUCOSE, FASTING 116 MG/DL (70-100); MAGNESIUM LEVEL 2.6 MG/DL (1.8-2.4); POTASSIUM SERUM 2.9 MEQ/L (3.5-5.1); SODIUM LEVEL 137 MEQ/L (136-145); TOTAL PROTEIN 6.7 GM/DL (6.4-8.2)
[2021-07-16] MEDS: ASPIRIN 81MG ENTERIC TABLET PO SCH (10:02)
[2021-07-16] MEDS ORDERED: POTASSIUM CHLORIDE 10MEQ SR TABLET PO ONE ×2 (10:30→18:00)
--- NOTE | 2021-07-16 11:51 | IPNPDOC ---
Subjective Date Seen The patient was seen on 07/16/21. Subjective Chief Complaint/HPI Patient is incontinent of Urine and has developed excoriations in the buttock crease from contact with urine. Complains of feeling very weak and tired. Needing 2 to 3 Liters of oxygen. Objective Physical Examination General Exam: Positive: Alert, Cooperative, No Acute Distress Eye Exam: Positive: PERRLA, Conjunctiva & lids normal, EOMI; Negative: Sclera icteric ENT Exam: Positive: Atraumatic, Mucous membr. moist/pink, Pharynx Normal Neck Exam: Positive: Supple; Negative: JVD, thyromegaly Chest Exam: Positive: Normal air movement, Diminished, Other (Scattered bilateral crackles) Heart Exam: Positive: Rate Normal, Regular Rhythm, Normal S1, Normal S2; Negative: Murmurs, Rubs Abdomen Exam: Positive: Normal bowel sounds, Soft, Tenderness (Right iliac fos sa), Other (Morbidly obese) Extremity Exam: Negative: Clubbing, Cyanosis, Edema Skin Exam: Positive: Rash (int eh buttock crease) Neuro Exam: Positive: Normal Speech, Strength at 5/5 X4 ext, Normal Tone Psych Exam: Positive: Memory Intact, Oriented x 3 Assessment /Plan Assessment 60-year-old morbidly obese non-smoker female with past medical history of VINCE does not use CPAP, hypothyroid, hyperlipidemia, overactive bladder has been sick for 2 weeks patient started initially with cough then after few days of cough started having nausea and vomiting with poor appetite. Has not had any bowel movement for 2 weeks. Patient also complains of right lower quadrant pain for 4 days sharp aching in nature rates it about 5 x 10 in intensity. Also has some soreness in the left lower quadrant. Patient has been exposed to COVID through daughter daughter's children and son-in-law. Patient self tested with home kit on 07/10/2021 and was positive. Today she called the EMS because of extreme weakness, tiredness, abdominal pain. After arrival to the ED she was noted to be at 87% in room air. COVID test was positive in ED. Chest x-ray shows bilateral infiltrates. Patient was admitted for COVID with hypoxic respiratory failure as well as abdominal pain which is to be evaluated. Covid with the hypoxic respiratory failure Patient obviously has underlying obstructive sleep apnea I am not sure if she has obesity hypoventilation or not We will give dexamethasone albuterol, aspirin, remdesivir DVT prophylaxis with Lovenox. Incentive spirometry Encourage awake proning Dehydration resolved Hypokalemia Replaced Abdominal pain Most likely due to constipation and musculoskeletal pain from nausea and vomiting. Patient reports has not had any bowel movement for [address] abdomen and pelvis did not show any acute finding. GERD We will give PPI Hyperlipidemia Continue statin Morbid obesity with a VINCE Untreated May also have underlying obesity hypoventilation Hypothyroid Continue Synthroid Plan/VTE VTE Prophylaxis Ordered?: Yes VS, I&O, 24H, Fishbone Vital Signs/I&O Vital Signs Date Time Temp Pulse Resp B/P (MAP) Pulse Ox O2 Delivery O2 Flow Rate FiO2 07/16/21 08:00 95 Nasal Cannula 3.0 07/16/21 06:00 99.5 68 19 127/62 (83) I&O- Last 24 Hours up to 6 AM 07/16/21 06:00 Intake Total 2110 ml Balance 2110 ml Laboratory Data 24H LABS Laboratory Tests 2 07/15/21 15:09: Immature Granulocyte % (Auto) 1.4, Neutrophils (%) (Auto) 84.2H, Lymphocytes (%) (Auto) 9.3L, Monocytes (%) (Auto) 5.0, Eosinophils (%) (Auto) 0.0, Basophils (%) (Auto) 0.1, Neutrophils # (Auto) 6.0, Lymphocytes # (Auto) 0.7L, Monocytes # (Auto) 0.4, Eosinophils # (Auto) 0.0, Basophils # (Auto) 0.0, Nucleated Red Blood Cells % (auto) 0.0, Anion Gap 9, Glomerular Filtration Rate > 60.0, Lactic Acid Level 1.1, Calcium Level 7.9L, Magnesium Level 2.3, Ferritin 303H, Total Bilirubin 0.7, Aspartate Amino Transf (AST/SGOT) 58H, Alanine Aminotransferase (ALT/SGPT) 27, Alkaline Phosphatase 58, Lactate Dehydrogenase 524H, Total Creatine Kinase 796H, Creatine Kinase MB < 1.0, Creatine Kinase MB Relative Index 0.13, Troponin I < 0.02, C-Reactive Protein, Quantitative 10.80H, Total Protein 6.3L, Albumin 2.5L, Albumin/Globulin Ratio 0.7L, Procalcitonin 0.05, Coronavirus (COVID-19)(PCR) POSITIVEA, Influenza Type A (RT-PCR) NEGATIVE, Influenza Type B (RT-PCR) NEGATIVE, Respiratory Syncytial Virus (PCR) NEGATIVE 07/15/21 15:10: Prothrombin Time 13.5, Prothromb Time International Ratio 0.99, Activated Partial Thromboplast Time 24.3L, Fibrinogen 578H, D-Dimer, Quantitative 3510.93H 07/16/21 07:40: Immature Granulocyte % (Auto) 1.5, Neutrophils (%) (Auto) 82.6H, Lymphocytes (%) (Auto) 11.3L, Monocytes (%) (Auto) 4.3, Eosinophils (%) (Auto) 0.0, Basophils (%) (Auto) 0.3, Neutrophils # (Auto) 5.5, Lymphocytes # (Auto) 0.8L, Monocytes # (Auto) 0.3, Eosinophils # (Auto) 0.0, Basophils # (Auto) 0.0, Nucleated Red Blood Cells % (auto) 0.0, Anion Gap 9, Glomerular Filtration Rate > 60.0, Calcium Level 8.1L, Magnesium Level 2.6H, Total Bilirubin 0.6, Aspartate Amino Transf (AST/SGOT) 44H, Alanine Aminotransferase (ALT/SGPT) 24, Alkaline P hosphatase 59, Total Protein 6.7, Albumin 2.3L, Albumin/Globulin Ratio 0.5L, Direct Bilirubin 0.2 CBC/BMP Laboratory Tests 07/15/21 15:09 07/16/21 07:40 Microbiology Microbiology 07/15/21 Blood Culture, Received Pending 07/15/21 Blood Culture, Received Pending Sari Chan MD Jul 16, 2021 11:51
[2021-07-16 18:11] LABS: APPEARANCE, URINE TURBID (CLEAR); BACTERIA, URINE AUTO NEGATIVE (NEGATIVE); BILIRUBIN, URINE AUTO NEGATIVE (NEGATIVE); BLOOD, URINE BLOOD NEGATIVE (NEGATIVE); COLOR, URINE AMBER (YELLOW); GLUCOSE, URINE (UA) AUTO NEGATIVE (NEGATIVE); KETONE, URINE AUTO 1+ mg/dL (NEGATIVE); LEUKOCYTE ESTERASE, URINE AUTO TRACE (NEGATIVE); NITRITE, URINE AUTO NEGATIVE (NEGATIVE); PROTEIN, URINE AUTO 2+ mg/dL (NEGATIVE); RBC, URINE AUTO 0 /HPF (0-3); SPECIFIC GRAVITY URINE AUTO 1.032 (1.002-1.035); SQUAMOUS EPITHELIAL CELL UR AU 7 /HPF (0-6); WBC, URINE AUTO 16 /HPF (0-3)
[2021-07-16] MEDS ORDERED: REMDESIVIR 100 MG in NS 250 ML IV SCH (23:00)
[2021-07-17] MEDS ORDERED: SODIUM CHLORIDE 0.9% INJ 10 ML SYR IV SCH
[2021-07-17] MEDS: REMDESIVIR 100 MG in NS 250 ML IV SCH (03:33)
[2021-07-17] MEDS: SODIUM CHLORIDE 0.9% INJ 10 ML SYR IV SCH (04:56)
[2021-07-17 07:09] LABS: INR 1.01; PROTHROMBIN TIME 13.7 SECONDS (12.7-14.5)
[2021-07-17 07:10] LABS: PARTIAL THROMBOPLASTIN TIME 26.8 SECONDS (25.9-37.0)
[2021-07-17 07:12] LABS: BASO % 0.4 % (0.0-1.0); HEMATOCRIT 37.4 % (36.0-47.0); HEMOGLOBIN 12.2 g/dl (12.0-15.5); LYMPH % 15.2 % (24.0-44.0); MEAN CORPUSCULAR HEMOGLOBIN 25.8 pg (27.0-33.0); MEAN CORPUSCULAR HGB CONC 32.6 g/dl (32.0-36.5); MEAN CORPUSCULAR VOLUME 79.1 fl (80.0-96.0); MONO # 0.3 10^3/uL (0.0-0.8); MONO % 4.4 % (2.0-8.0); NEUTROPHILS # 5.2 10^3/uL (1.5-8.5); NEUTROPHILS % 77.5 % (36.0-66.0); RED BLOOD COUNT 4.73 10^6/uL (4.00-5.40); WHITE BLOOD COUNT 6.8 10^3/uL (4.0-10.0)
[2021-07-17 07:27] LABS: CPK CREATINE PHOSPHOKINASE 569 U/L (26-192); TROPONIN I < 0.02 NG/ML (< 0.10)
[2021-07-17 07:28] LABS: ALBUMIN 2.2 GM/DL (3.2-5.2); ALT/SGPT 22 U/L (12-78); BILIRUBIN,DIRECT 0.2 MG/DL (0.0-0.2); BILIRUBIN,TOTAL 0.4 MG/DL (0.2-1.0); BLOOD UREA NITROGEN 15 MG/DL (7-18); CALCIUM LEVEL 8.2 MG/DL (8.8-10.2); CARBON DIOXIDE LEVEL 26 MEQ/L (21-32); CHLORIDE LEVEL 102 MEQ/L (98-107); CREATININE FOR GFR 0.69 MG/DL (0.55-1.30); FERRITIN 290 NG/ML (8-252); GLOMERULAR FILTRATION RATE > 60.0 (>45); GLUCOSE, FASTING 118 MG/DL (70-100); LDH LACTATE DEHYDROGENASE 470 U/L (84-246); MAGNESIUM LEVEL 2.5 MG/DL (1.8-2.4); NT-PRO BNP 228 PG/ML (<125); POTASSIUM SERUM 3.4 MEQ/L (3.5-5.1); SODIUM LEVEL 135 MEQ/L (136-145); TOTAL PROTEIN 6.7 GM/DL (6.4-8.2)
[2021-07-17] MEDS ORDERED: POTASSIUM CHLORIDE 10MEQ SR TABLET PO ONE (08:15)
[2021-07-17] MEDS: ASPIRIN 81MG ENTERIC TABLET PO SCH (08:41)
[2021-07-17] MEDS: SENOKOT S TAB PO SCH ×2 (08:42→19:39)
[2021-07-17] MEDS: ALBUTEROL 90 MCG/ACT 8GM HFA INHALER INH SCH ×4 (10:12→19:54)
[2021-07-17 12:02] VITALS: O2SAT 93
[2021-07-17 14:00] VITALS: BP 108/54
--- NOTE | 2021-07-17 16:49 | IPNPDOC ---
Subjective Date Seen The patient was seen on 07/17/21. Subjective Chief Complaint/HPI Patient unwilling to mobilize much. Patient had to be coaxed to get out of bed and walk to the bathroom. Once she was out of bed she was able to walk independently with a walker. She has continuous urinary incontinence. Requiring 3 L of oxygen. No fever or chills. Denies any shortness of breath does still have some cough. Objective Physical Examination General Exam: Positive: Alert, Cooperative, No Acute Distress Eye Exam: Positive: PERRLA, Conjunctiva & lids normal, EOMI; Negative: Sclera icteric ENT Exam: Positive: Atraumatic, Mucous membr. moist/pink, Pharynx Normal Neck Exam: Positive: Supple; Negative: JVD, thyromegaly Chest Exam: Positive: Normal air movement, Diminished, Other (Scattered bilateral crackles) Heart Exam: Positive: Rate Normal, Regular Rhythm, Normal S1, Normal S2; Negative: Murmurs, Rubs Abdomen Exam: Positive: Normal bowel sounds, Soft, Tenderness (Right iliac fossa), Other (Morbidly obese) Extremity Exam: Negative: Clubbing, Cyanosis, Edema Skin Exam: Positive: Rash (int eh buttock crease) Neuro Exam: Positive: Normal Speech, Strength at 5/5 X4 ext, Normal Tone Psych Exam: Positive: Memory Intact, Oriented x 3 Assessment /Plan Assessment 60-year-old morbidly obese non-smoker female with past medical history of VINCE does not use CPAP, hypothyroid, hyperlipidemia, overactive bladder has been sick for 2 weeks patient started initially with cough then after few days of cough started having nausea and vomiting with poor appetite. Has not had any bowel movement for 2 weeks. Patient also complains of right lower quadrant pain for 4 days sharp aching in nature rates it about 5 x 10 in intensity. Also has some soreness in the left lower quadrant. Patient has been exposed to COVID through daughter daughter's children and son-in-law. Patient self tested with home kit on 07/10/2021 and was positive. Today she called the EMS because of extreme weakness, tiredness, abdominal pain. After arrival to the ED she was noted to be at 87% in room air. COVID test was positive in ED. Chest x-ray shows bilateral infiltrates. Patient was admitted for COVID with hypoxic respiratory failure as well as abdominal pain which is to be evaluated. Covid with the hypoxic respiratory failure Patient obviously has underlying obstructive sleep apnea I am not sure if she has obesity hypoventilation or not. We will give dexamethasone albuterol, aspirin, remdesivir DVT prophylaxis with Lovenox. Incentive spirometry Encourage awake proning Irritant dermatitis Patient has excoriating rash in the center buttock fold extending from the perineum backwards to above the anal opening with some superficial ulcerations and bleeding This is due to urinary incontinence and laying in bed for hours at home unable to get up and clean herself. This was present on admission Dehydration resolved Hypokalemia Replaced Abdominal pain Most likely due to constipation and musculoskeletal pain from nausea and vomiting. Patient reports has not had any bowel movement for [address] abdomen and pelvis did not show any acute finding. GERD We will give PPI Hyperlipidemia Continue statin Morbid obesity with a VINCE Untreated May also have underlying obesity hypoventilation Hypothyroid Continue Synthroid Plan/VTE VTE Prophylaxis Ordered?: Yes VS, I&O, 24H, Fishbone Vital Signs/I&O Vital Signs Date Time Temp Pulse Resp B/P (MAP) Pulse Ox O2 Delivery O2 Flow Rate FiO2 07/17/21 14:00 98.4 67 17 108/54 (72) 98 Nasal Cannula 3.0 I&O- Last 24 Hours up to 6 AM 07/17/21 06:00 Intake Total 1760 ml Output Total 900 ml Balance 860 ml Laboratory Data 24H LABS Laboratory Tests 2 07/16/21 17:36: Urine Color NALDO, Urine Appearance TURBIDH, Urine pH 6.0, Urine Specific [place] 1.032, Urine Protein 2+H, Urine Glucose (Auto)(UA) NEGATIVE, Urine Ketones (Auto) 1+H, Urine Blood NEGATIVE, Urine Nitrite NEGATIVE, Urine Bilirubin NEGATIVE, Urine Urobilinogen 4.0H, Urine Leukocyte Esterase (Auto) TRACEH, Urine WBC (Auto) 16H, Urine RBC (Auto) 0, Urine Hyaline Casts (Auto) 0, Urine Bacteria (Auto) NEGATIVE, Urine Squamous Epithelial Cells 7, Urine Sperm (Auto) 07/17/21 06:28: Immature Granulocyte % (Auto) 2.5, Neutrophils (%) (Auto) 77.5H, Lymphocytes (%) (Auto) 15.2L, Monocytes (%) (Auto) 4.4, Eosinophils (%) (Auto) 0.0, Basophils (%) (Auto) 0.4, Neutrophils # (Auto) 5.2, Lymphocytes # (Auto) 1.0L, Monocytes # (Auto) 0.3, Eosinophils # (Auto) 0.0, Basophils # (Auto) 0.0, Nucleated Red Blood Cells % (auto) 0.0, Prothrombin Time 13.7, Prothromb Time International Ratio 1.01, Activated Partial Thromboplast Time 26.8, Fibrinogen 634H, Anion Gap 7L, Glomerular Filtration Rate > 60.0, Calcium Level 8.2L, Magnesium Level 2.5H, Ferritin 290H, Total Bilirubin 0.4, Direct Bilirubin 0.2, Aspartate Amino Transf (AST/SGOT) 43H, Alanine Aminotransferase (ALT/SGPT) 22, Alkaline Phosphatase 55, Lactate Dehydrogenase 470H, Total Creatine Kinase 569H, Troponin I < 0.02, FF-Otx-R-Type Natriuretic Peptide 228H, Total Protein 6.7, Albumin 2.2L, Albumin/Globulin Ratio 0.5L, Procalcitonin <0.05 CBC/BMP Laboratory Tests 07/17/21 06:28 Microbiology Microbiology 07/15/21 Blood Culture - Preliminary, Resulted No Growth after 48 hours. All Specime... 07/15/21 Blood Culture - Preliminary, Resulted No Growth after 48 hours. All Specime... Sari Chan MD Jul 17, 2021 16:49
[2021-07-17] MEDS: PANTOPRAZOLE 40MG VIAL (C9113 PER 1) IV SCH (19:38)
[2021-07-17] MEDS: dexameTHASONE 4 MG/ML 1ML VIAL (J1100 PER 1MG) IV SCH (19:39)
[2021-07-17 20:00] VITALS: BP 119/59
[2021-07-18] MEDS: REMDESIVIR 100 MG in NS 250 ML IV SCH (03:46)
[2021-07-18 04:00] VITALS: BP 127/58
[2021-07-18] MEDS: SODIUM CHLORIDE 0.9% INJ 10 ML SYR IV SCH (05:20)
[2021-07-18] MEDS: SENOKOT S TAB PO SCH (07:35)
[2021-07-18] MEDS: ALBUTEROL 90 MCG/ACT 8GM HFA INHALER INH SCH ×3 (07:35→15:49)
--- NOTE | 2021-07-18 07:39 | ECGEPIP ---
[facility] - ED Test Date: 2021-07-15 Pat Name: JYOTSNA CORDOBA Department: Room: [place] [address] Gender: Female Crm Coordinator: NATE : 1960 Requested By: Lisseth Paez Order Number: [id number] Reading MD: iLsseth Paez Measurements Intervals [place] Rate: 76 P: 29 W[place]: 136 QRS: -26 QRSD: 84 T: 39 QT: 392 QTc: 441 Interpretive Statements Normal sinus rhythm NSTTW abnormalities No prior Electronically Signed on 07-18-2021 7:39:20 EST by Lisseth Paez
[2021-07-18 08:44] LABS: HEMATOCRIT 36.3 % (36.0-47.0); HEMOGLOBIN 11.7 g/dl (12.0-15.5); MEAN CORPUSCULAR HEMOGLOBIN 25.8 pg (27.0-33.0); MEAN CORPUSCULAR HGB CONC 32.2 g/dl (32.0-36.5); MEAN CORPUSCULAR VOLUME 80.1 fl (80.0-96.0); RED BLOOD COUNT 4.53 10^6/uL (4.00-5.40); WHITE BLOOD COUNT 5.2 10^3/uL (4.0-10.0)
[2021-07-18] MEDS: ASPIRIN 81MG ENTERIC TABLET PO SCH (08:51)
[2021-07-18 09:05] LABS: BLOOD UREA NITROGEN 15 MG/DL (7-18); CALCIUM LEVEL 8.2 MG/DL (8.8-10.2); CARBON DIOXIDE LEVEL 26 MEQ/L (21-32); CHLORIDE LEVEL 105 MEQ/L (98-107); CREATININE FOR GFR 0.56 MG/DL (0.55-1.30); GLOMERULAR FILTRATION RATE > 60.0 (>45); GLUCOSE, FASTING 105 MG/DL (70-100); MAGNESIUM LEVEL 2.3 MG/DL (1.8-2.4); POTASSIUM SERUM 3.4 MEQ/L (3.5-5.1); SODIUM LEVEL 138 MEQ/L (136-145)
[2021-07-18 09:15] LABS: ANISOCYTOSIS 1+; ATYPICAL LYMPH 1 % (0-5); LYMPHOCYTES 27 % (16-44); MONOCYTES 5 % (0-5); NEUTROPHILS 67 % (28-66); PLATELET CLUMPS LARGE AMT; PLATELET ESTIMATE INVALID (NORMAL)
[2021-07-18] MEDS ORDERED: POTASSIUM CHLORIDE 10MEQ SR TABLET PO ONE (10:30)
[2021-07-18 11:33] VITALS: O2SAT 95
[2021-07-18] MEDS ORDERED: ASPI-551 PO (11:34)
[2021-07-18] MEDS ORDERED: PRED10TA2 PO (11:34)
[2021-07-18] MEDS ORDERED: PANT40TA29 PO (11:34)
--- NOTE | 2021-07-18 12:10 | DS.PDOC ---
Discharge Summary General Date of Admission Jul 15, 2021 at 16:50 Date of Discharge 07/18/21 Discharge Summary PROCEDURES PERFORMED DURING STAY: [None]. DISCHARGE DIAGNOSES: Covid pneumonia with hypoxia Irritant dermatitis of the buttocks from urinary incontinence Dehydration Hypokalemia Secondary diagnosis Morbid obesity, VINCE does not use CPAP, hypothyroid, hyperlipidemia, overactive bladder with urinary incontinence, GERD COMPLICATIONS/CHIEF COMPLAINT: Constipations;Covid-19;Hypoxia. HOSPITAL COURSE: 60-year-old morbidly obese non-smoker female with past medical history of VINCE does not use CPAP, hypothyroid, hyperlipidemia, overactive bladder has been sick for 2 weeks prior to admission. Patient started initially with cough then after few days of cough started having nausea and vomiting with poor appetite. Has not had any bowel movement for 2 weeks prior to admission. Patient also complained of right lower quadrant pain for 4 days sharp aching in nature rates it about 5 x 10 in intensity. Also has some soreness in the left lower quadrant. Patient has been exposed to COVID through daughter and daughter's children and son-in-law. Patient self tested with home kit on 07/10/2021 and was positive. On 07/15/2021 she called the EMS because of extreme weakness, tiredness, abdominal pain. After arrival to the ED she was noted to be at 87% in room air. COVID test was positive in ED. Chest x-ray showed bilateral infiltrates. Patient was admitted for COVID with hypoxic respiratory failure and abdominal pain. Covid with the hypoxic respiratory failure Patient obviously has underlying obstructive sleep apnea I am not sure if she has obesity hypoventilation or not. Continue aspirin and prednisone taper Incentive spirometry Encourage awake proning Irritant dermatitis Patient has excoriating rash in the center buttock fold extending from the perineum backwards to above the anal opening with some superficial ulcerations and bleeding This is due to urinary incontinence and laying in bed for hours at home unable to get up and clean herself. This was present on admission Dehydration resolved Hypokalemia Replaced Abdominal pain Most likely due to constipation and musculoskeletal pain from nausea and vomiting. CT abdomen and pelvis did not show any acute finding. Hyperlipidemia Continue statin Morbid obesity with a VINCE Untreated May also have underlying obesity hypoventilation Hypothyroid Continue Synthroid DISCHARGE MEDICATIONS: Please see below. ALLERGIES: Please see below. PHYSICAL EXAMINATION ON DISCHARGE: VITAL SIGNS: Please see below. General Exam: Positive: Alert, Cooperative, No Acute Distress Eye Exam: Positive: PERRLA, Conjunctiva & lids normal, EOMI; Negative: Sclera icteric ENT Exam: Positive: Atraumatic, Mucous membr. moist/pink, Pharynx Normal Neck Exam: Positive: Supple; Negative: JVD, thyromegaly Chest Exam: Positive: Normal air movement, Diminished, Other (Scattered bilateral crackles) Heart Exam: Positive: Rate Normal, Regular Rhythm, Normal S1, Normal S2; Negative: Murmurs, Rubs Abdomen Exam: Positive: Normal bowel sounds, Soft, Tenderness (Right iliac fossa), Other (Morbidly obese) Extremity Exam: Negative: Clubbing, Cyanosis, Edema Skin Exam: Positive: Rash (int eh buttock crease) Neuro Exam: Positive: Normal Speech, Strength at 5/5 X4 ext, Normal Tone Psych Exam: Positive: Memory Intact, Oriented x 3 LABORATORY DATA: Please see below. ACTIVITY: [As tolerated]. DIET: As tolerated DISCHARGE PLAN: Home with services DISCHARGE INSTRUCTIONS: Follow with PMD in 1 week Use oxygen 2L/min DISCHARGE CONDITION: [Stable]. TIME SPENT ON DISCHARGE: 35 minutes. Vital Signs/I&Os Vital Signs Date Time Temp Pulse Resp B/P (MAP) Pulse Ox O2 Delivery O2 Flow Rate FiO2 07/18/21 05:29 2.0 07/18/21 04:00 97.0 57 18 127/58 (81) 95 Nasal Cannula I&O- Last 24 Hours up to 6 AM 07/18/21 06:00 Intake Total 1050 ml Balance 1050 ml Laboratory Data Labs 24H Laboratory Tests 2 07/18/21 07:33: Neutrophils (%) (Auto) , Nucleated Red Blood Cells % (auto) 0.0, Neutrophils 67H, Lymphocytes (Manual) 27, Monocytes (Manual) 5, Atypical Lymphocytes 1, Anisocytosis 1+, Platelet Estimate INVALID, Clumped Platelets LARGE AMT, Anion Gap 7L, Glomerular Filtration Rate > 60.0, Calcium Level 8.2L, Magnesium Level 2.3 CBC/BMP Laboratory Tests 07/18/21 07:33 Microbiology Microbiology 07/15/21 Blood Culture - Preliminary, Resulted No Growth after 48 hours. All Specime... 07/15/21 Blood Culture - Preliminary, Resulted No Growth after 48 hours. All Specime... Discharge Medications Scheduled Aspirin (Aspirin EC) 81 Mg Tablet.dr, 81 MG PO DAILY Brimonidine Tartrate (Brimonidine Tartrate) 0.2% 5ML Drops, 1 DROP OU BID, (Reported) Calcium Carbonate/Vitamin D3 (Calcium 600-Vit D3 800 Tablet) 1 Each Tablet, 1 TAB PO QHS, (Reported) Cholecalciferol (Vitamin D3) (Vitamin D3) 125 Mcg Capsule, 125 MCG PO DAILY, (Reported) Estradiol (Estrace) 42.5 Gm Cream.appl, 0.1 MG PV 2XW, (Reported) Latanoprost (Xalatan) 0.005% 2.5ML Drops, 1 DROP OU QHS, (Reported) Levothyroxine Sodium (Synthroid) 50 Mcg Tab, 50 MCG PO DAILY, (Reported) Methenamine Hippurate (Methenamine Hippurate) 1 Gm Tablet, 1 GM PO BID, (Reported) Mirabegron (Myrbetriq) 50 Mg Tab, 50 MG PO DAILY, (Reported) Pantoprazole Sodium (Pantoprazole Sodium) 40 Mg Tablet.dr, 1 TAB PO DAILY Prednisone (Prednisone) 10 Mg Tablet, 10 MG PO TAPER Take 4 tabs daily x 3 days, then 3 tabs daily x 3 days, then 2 tabs daily x 3 days, then 1 tab daily x 3 days and stop Simvastatin (Simvastatin) 20 Mg Tab, 20 MG PO DAILY, (Reported) Scheduled PRN Albuterol Sulfate (Proair Hfa) 8.5 Gm Hfa.aer.ad, 2 PUFF INH QID PRN for SHORTNESS OF BREATH, (Reported) Allergies Coded Allergies: TAPE (Verified Allergy, Intermediate, red spots, 04/06/19) Sari Chan MD Jul 18, 2021 10:38
[2021-07-20 17:09] LABS: BODY FLUID CULTURE Not indicated. (.); LEGIONELLA ANTIGEN URINE Negative (Negative); ORGANISM ID Not indicated. (.); SPECIMEN SOURCE Urine (.); URINE STREP PNEUMONIAE ANTIGEN Negative (Negative)
== END 2021-07-18 17:36 | disposition home health service (06) | DRG 137 ==
LOC: EDBD 14:43 → M ED 14:43 → M ED INP 16:50 → M 4MAIN 07-16 01:00
PROVIDERS: ADMIT Internal Medicine Nephrology; ATTEND Internal Medicine Nephrology
PROC: XW033E5 Introduction of Remdesivir Anti-infective into Peripheral Vein, Percutaneous Approach, New Technology Group 5 (ICD-10-PCS; principal; 2021-07-15)
PROC: 3E0333Z Introduction of Anti-inflammatory into Peripheral Vein, Percutaneous Approach (ICD-10-PCS; 2021-07-15)
DX: U07.1 COVID-19 (principal); E66.2 Morbid (severe) obesity with alveolar hypoventilation; Z68.43 Body mass index [BMI] 50.0-59.9, adult; K59.00 Constipation, unspecified; E03.9 Hypothyroidism, unspecified; E87.6 Hypokalemia; E78.5 Hyperlipidemia, unspecified; R09.02 Hypoxemia; E55.9 Vitamin D deficiency, unspecified; R11.2 Nausea with vomiting, unspecified; N32.81 Overactive bladder; L24.A2 Irritant contact dermatitis due to fecal, urinary or dual incontinence; Z79.899 Other long term (current) drug therapy; Z91.048 Other nonmedicinal substance allergy status

== ENCOUNTER → 2021-07-30 | Outpatient (CLI) | payer OTHER ==
[~2021-07-30] MED LIST changes: +ASPI-551 PO; +BRIM0.2S13 OU; +D3 M1CAP2 PO; +ESTR1CRE PV; +PANT40TA29 PO; +PRED10TA2 PO; +PROAAER10 INH; +XALA0.007 OU
== END ==
LOC: M CLY 11:11
PROVIDERS: ATTEND Nurse Practitioner Family
DX: J12.82 Pneumonia due to coronavirus disease 2019 (principal)

== ENCOUNTER → 2021-07-30 | Outpatient (REF) | payer OTHER ==
[2021-07-30 16:01] LABS: BASO # 0.1 10^3/uL (0.0-0.2); BASO % 0.9 % (0.0-1.0); EOS % 0.5 % (0.0-3.0); HEMATOCRIT 39.5 % (36.0-47.0); HEMOGLOBIN 12.5 g/dl (12.0-15.5); LYMPH # 1.7 10^3/uL (1.5-5.0); LYMPH % 20.8 % (24.0-44.0); MEAN CORPUSCULAR HEMOGLOBIN 26.3 pg (27.0-33.0); MEAN CORPUSCULAR HGB CONC 31.6 g/dl (32.0-36.5); MEAN CORPUSCULAR VOLUME 83.2 fl (80.0-96.0); MONO # 0.8 10^3/uL (0.0-0.8); MONO % 9.6 % (2.0-8.0); NEUTROPHILS # 5.4 10^3/uL (1.5-8.5); NEUTROPHILS % 67.7 % (36.0-66.0); RED BLOOD COUNT 4.75 10^6/uL (4.00-5.40); WHITE BLOOD COUNT 7.9 10^3/uL (4.0-10.0)
[2021-07-30 16:32] LABS: ALBUMIN 2.9 GM/DL (3.2-5.2); ALT/SGPT 21 U/L (12-78); BILIRUBIN,TOTAL 0.6 MG/DL (0.2-1.0); BLOOD UREA NITROGEN 23 MG/DL (7-18); CALCIUM LEVEL 9.2 MG/DL (8.8-10.2); CARBON DIOXIDE LEVEL 30 MEQ/L (21-32); CHLORIDE LEVEL 102 MEQ/L (98-107); CREATININE FOR GFR 0.91 MG/DL (0.55-1.30); GLOMERULAR FILTRATION RATE > 60.0 (>45); GLUCOSE, FASTING 101 MG/DL (70-100); POTASSIUM SERUM 4.7 MEQ/L (3.5-5.1); SODIUM LEVEL 138 MEQ/L (136-145); TOTAL PROTEIN 6.8 GM/DL (6.4-8.2)
== END ==
LOC: M SFHCCLAY 11:03
PROVIDERS: ATTEND Nurse Practitioner Family
DX: U07.1 COVID-19 (principal)

== ENCOUNTER → 2021-10-05 | Outpatient (REF) | payer OTHER ==
[2021-10-05 12:42] LABS: BASO # 0.1 10^3/uL (0.0-0.2); BASO % 1.2 % (0.0-1.0); EOS # 0.4 10^3/uL (0.0-0.5); EOS % 4.9 % (0.0-3.0); HEMATOCRIT 36.6 % (36.0-47.0); HEMOGLOBIN 11.2 g/dl (12.0-15.5); LYMPH # 1.9 10^3/uL (1.5-5.0); LYMPH % 26.1 % (24.0-44.0); MEAN CORPUSCULAR HEMOGLOBIN 25.6 pg (27.0-33.0); MEAN CORPUSCULAR HGB CONC 30.6 g/dl (32.0-36.5); MEAN CORPUSCULAR VOLUME 83.8 fl (80.0-96.0); MONO # 0.6 10^3/uL (0.0-0.8); MONO % 7.7 % (2.0-8.0); NEUTROPHILS # 4.4 10^3/uL (1.5-8.5); PLATELET COUNT, AUTOMATED 365 10^3/uL (150-450); RED BLOOD COUNT 4.37 10^6/uL (4.00-5.40); WHITE BLOOD COUNT 7.3 10^3/uL (4.0-10.0)
[2021-10-05 13:29] LABS: ALBUMIN 3.4 GM/DL (3.2-5.2); ALT/SGPT 17 U/L (12-78); BILIRUBIN,TOTAL 0.3 MG/DL (0.2-1.0); BLOOD UREA NITROGEN 20 MG/DL (7-18); CALCIUM LEVEL 9.1 MG/DL (8.8-10.2); CARBON DIOXIDE LEVEL 27 MEQ/L (21-32); CHLORIDE LEVEL 108 MEQ/L (98-107); CHOLESTEROL LEVEL 158 MG/DL (<200); CHOLESTEROL RISK RATIO 2.393 (<5); CREATININE FOR GFR 0.93 MG/DL (0.55-1.30); FREE T4 1.25 NG/DL (0.76-1.46); GLOMERULAR FILTRATION RATE > 60.0 (>45); GLUCOSE, FASTING 90 MG/DL (70-100); HDL CHOLESTEROL 66 MG/DL (>40); LDL CHOLESTEROL 71 MG/DL (<100); NON-HDL-C 92 MG/DL; POTASSIUM SERUM 4.3 MEQ/L (3.5-5.1); SODIUM LEVEL 142 MEQ/L (136-145); TOTAL PROTEIN 6.9 GM/DL (6.4-8.2); TRIGLYCERIDES LEVEL 103 MG/DL (<150)
[2021-10-05 15:24] LABS: TOTAL 25(OH) VITAMIN D 55.3 NG/ML (30.0-100.0)
== END ==
LOC: M SFHCCLAY 07:57
PROVIDERS: ATTEND Nurse Practitioner Family
DX: Z00.00 Encounter for general adult medical examination without abnormal findings (principal); N32.81 Overactive bladder; E03.9 Hypothyroidism, unspecified; E78.5 Hyperlipidemia, unspecified; E55.9 Vitamin D deficiency, unspecified; I10 Essential (primary) hypertension

== ENCOUNTER → 2022-11-08 | Outpatient (REF) | payer OTHER, MEDICARE ==
[2022-11-08 18:11] LABS: BASO # 0.1 10^3/uL (0.0-0.2); BASO % 0.9 % (0.0-1.0); EOS # 0.3 10^3/uL (0.0-0.5); EOS % 3.8 % (0.0-3.0); HEMATOCRIT 39.2 % (36.0-47.0); HEMOGLOBIN 11.9 g/dl (12.0-15.5); LYMPH # 2.1 10^3/uL (1.5-5.0); LYMPH % 23.6 % (24.0-44.0); MEAN CORPUSCULAR HEMOGLOBIN 25.7 pg (27.0-33.0); MEAN CORPUSCULAR HGB CONC 30.4 g/dl (32.0-36.5); MEAN CORPUSCULAR VOLUME 84.7 fl (80.0-96.0); MONO # 0.6 10^3/uL (0.0-0.8); MONO % 7.1 % (2.0-8.0); NEUTROPHILS # 5.6 10^3/uL (1.5-8.5); NEUTROPHILS % 64.3 % (36.0-66.0); PLATELET COUNT, AUTOMATED 328 10^3/uL (150-450); RED BLOOD COUNT 4.63 10^6/uL (4.00-5.40); WHITE BLOOD COUNT 8.7 10^3/uL (4.0-10.0)
[2022-11-08 18:49] LABS: FREE T4 1.31 NG/DL (0.89-1.76); THYROID STIMULATING HORMONE 3.374 uIU/ML (0.55-4.78)
[2022-11-08 18:50] LABS: TOTAL 25(OH) VITAMIN D 67.6 NG/ML (20.0-100.0)
[2022-11-08 18:51] LABS: ALBUMIN 3.4 G/DL (3.2-5.2); ALKALINE PHOSPHATASE 113 U/L (46-116); ALT/SGPT < 9 U/L (7.0-40); AST/SGOT 10 U/L (<34); BILIRUBIN,TOTAL 0.6 MG/DL (0.3-1.2); BLOOD UREA NITROGEN 14 MG/DL (9-23); CALCIUM LEVEL 8.8 MG/DL (8.3-10.6); CARBON DIOXIDE LEVEL 28 MMOL/L (20-31); CHLORIDE LEVEL 105 MMOL/L (98-107); CHOLESTEROL LEVEL 154 MG/DL (<200); CHOLESTEROL RISK RATIO 2.93 (<5); CREATININE FOR GFR 0.89 MG/DL (0.55-1.30); GLOMERULAR FILTRATION RATE > 60.0 (>45); GLUCOSE, FASTING 92 MG/DL (74-106); HDL CHOLESTEROL 52.5 MG/DL (>40); LDL CHOLESTEROL 79.7 MG/DL (<100); NON-HDL-C 101.5 MG/DL; POTASSIUM SERUM 4.3 MMOL/L (3.5-5.1); SODIUM LEVEL 142 MMOL/L (136-145); TOTAL PROTEIN 6.7 G/DL (5.7-8.2); TRIGLYCERIDES LEVEL 109 MG/DL (<150)
[2022-11-08 18:52] LABS: HEMOGLOBIN A1c 5.3 % (4.0-6.0)
== END ==
LOC: M SFHCCLAY 11:20
PROVIDERS: ATTEND Nurse Practitioner Family
DX: Z00.00 Encounter for general adult medical examination without abnormal findings (principal); N32.81 Overactive bladder; E03.9 Hypothyroidism, unspecified; E78.5 Hyperlipidemia, unspecified; E55.9 Vitamin D deficiency, unspecified; I10 Essential (primary) hypertension; Z13.1 Encounter for screening for diabetes mellitus

== ENCOUNTER → 2023-01-20 | Outpatient (CLI) | payer OTHER, MEDICARE | LOC: M CLY 14:06 | PROVIDERS: ATTEND Physician Assistant | DX: R06.09 Other forms of dyspnea (principal) ==

== ENCOUNTER → 2023-01-20 | Outpatient (REF) | payer OTHER, MEDICARE ==
[2023-01-20 17:29] LABS: BASO # 0.1 10^3/uL (0.0-0.2); BASO % 0.8 % (0.0-1.0); EOS # 0.3 10^3/uL (0.0-0.5); EOS % 3.3 % (0.0-3.0); HEMATOCRIT 37.2 % (36.0-47.0); HEMOGLOBIN 11.6 g/dl (12.0-15.5); LYMPH # 2.2 10^3/uL (1.5-5.0); LYMPH % 25.5 % (24.0-44.0); MEAN CORPUSCULAR HEMOGLOBIN 26.9 pg (27.0-33.0); MEAN CORPUSCULAR HGB CONC 31.2 g/dl (32.0-36.5); MEAN CORPUSCULAR VOLUME 86.1 fl (80.0-96.0); MONO # 0.6 10^3/uL (0.0-0.8); MONO % 7.5 % (2.0-8.0); NEUTROPHILS # 5.3 10^3/uL (1.5-8.5); NEUTROPHILS % 62.4 % (36.0-66.0); PLATELET COUNT, AUTOMATED 273 10^3/uL (150-450); RED BLOOD COUNT 4.32 10^6/uL (4.00-5.40); WHITE BLOOD COUNT 8.4 10^3/uL (4.0-10.0)
[2023-01-20 17:57] LABS: ALBUMIN 3.5 G/DL (3.2-5.2); ALKALINE PHOSPHATASE 95 U/L (46-116); ALT/SGPT < 9 U/L (7.0-40); AST/SGOT 11 U/L (<34); BILIRUBIN,TOTAL 0.4 MG/DL (0.3-1.2); BLOOD UREA NITROGEN 21 MG/DL (9-23); CALCIUM LEVEL 8.8 MG/DL (8.3-10.6); CARBON DIOXIDE LEVEL 27 MMOL/L (20-31); CHLORIDE LEVEL 108 MMOL/L (98-107); CREATININE FOR GFR 0.87 MG/DL (0.55-1.30); GLOMERULAR FILTRATION RATE > 60.0 (>45); GLUCOSE, FASTING 112 MG/DL (74-106); POTASSIUM SERUM 3.8 MMOL/L (3.5-5.1); SODIUM LEVEL 144 MMOL/L (136-145); TOTAL PROTEIN 6.8 G/DL (5.7-8.2)
[2023-01-20 18:00] LABS: THYROID STIMULATING HORMONE 1.796 uIU/ML (0.55-4.78)
== END ==
LOC: M SFHCCLAY 14:24
PROVIDERS: ATTEND Physician Assistant
DX: R06.09 Other forms of dyspnea (principal)

== ENCOUNTER → 2023-09-12 | Outpatient (CLI) | payer MEDICARE, MEDICAID ==
[~2023-09-12] MED LIST changes: -OXYB5TAB10 PO; +OXYB5TAB11 PO
== END ==
LOC: M CLY 10:59
PROVIDERS: ATTEND Nurse Practitioner Family
DX: R05.2 Subacute cough (principal)

== ENCOUNTER → 2023-11-10 | Outpatient (REF) | payer MEDICARE, MEDICAID ==
[~2023-11-10] MED LIST changes: -OXYB5TAB11 PO; +OXYB5TAB14 PO
[2023-11-10 18:14] LABS: BASO # 0.1 10^3/uL (0.0-0.2); BASO % 0.8 % (0.0-1.0); EOS # 0.2 10^3/uL (0.0-0.5); EOS % 2.5 % (0.0-3.0); HEMATOCRIT 38.2 % (36.0-47.0); HEMOGLOBIN 11.9 g/dl (12.0-15.5); LYMPH # 2.3 10^3/uL (1.5-5.0); LYMPH % 28.5 % (24.0-44.0); MEAN CORPUSCULAR HEMOGLOBIN 26.4 pg (27.0-33.0); MEAN CORPUSCULAR HGB CONC 31.2 g/dl (32.0-36.5); MEAN CORPUSCULAR VOLUME 84.7 fl (80.0-96.0); MONO # 0.6 10^3/uL (0.0-0.8); MONO % 7.4 % (2.0-8.0); NEUTROPHILS # 4.8 10^3/uL (1.5-8.5); NEUTROPHILS % 60.5 % (36.0-66.0); PLATELET COUNT, AUTOMATED 313 10^3/uL (150-450); RED BLOOD COUNT 4.51 10^6/uL (4.00-5.40); WHITE BLOOD COUNT 7.9 10^3/uL (4.0-10.0)
[2023-11-10 18:37] LABS: ALBUMIN 3.4 G/DL (3.2-5.2); ALKALINE PHOSPHATASE 93 U/L (46-116); ALT/SGPT < 9 U/L (7.0-40); AST/SGOT 13 U/L (<34); BILIRUBIN,TOTAL 0.5 MG/DL (0.3-1.2); BLOOD UREA NITROGEN 17 MG/DL (9-23); CALCIUM LEVEL 9.1 MG/DL (8.3-10.6); CARBON DIOXIDE LEVEL 28 MMOL/L (20-31); CHLORIDE LEVEL 106 MMOL/L (98-107); CHOLESTEROL LEVEL 131 MG/DL (<200); CHOLESTEROL RISK RATIO 2.49 (<5); FREE T4 1.41 NG/DL (0.89-1.76); GLOMERULAR FILTRATION RATE > 60.0 (>45); GLUCOSE, FASTING 91 MG/DL (74-106); HDL CHOLESTEROL 52.6 MG/DL (>40); NON-HDL-C 78.4 MG/DL; POTASSIUM SERUM 4.1 MMOL/L (3.5-5.1); SODIUM LEVEL 141 MMOL/L (136-145); THYROID STIMULATING HORMONE 1.342 uIU/ML (0.55-4.78); TOTAL PROTEIN 6.7 G/DL (5.7-8.2); TRIGLYCERIDES LEVEL 77 MG/DL (<150)
[2023-11-10 18:38] LABS: TOTAL 25(OH) VITAMIN D 61.1 NG/ML (20.0-100.0)
== END ==
LOC: M SFHCCLAY 11:55
PROVIDERS: ATTEND Nurse Practitioner Family
DX: Z00.00 Encounter for general adult medical examination without abnormal findings (principal); E03.9 Hypothyroidism, unspecified; E78.5 Hyperlipidemia, unspecified; E55.9 Vitamin D deficiency, unspecified

== ENCOUNTER 2023-12-29 07:24 | Day surgery (SDC) | payer MEDICARE, MEDICAID ==
[~2023-12-29] VITALS: Ht 167.6 cm; Wt 150.6 kg
[~2023-12-29 07:24] MED LIST changes: +LORA-243 PO
[2023-12-29] MEDS: NS 1,000 ML IV ONE (08:01)
[2023-12-29 09:28] VITALS: BP 144/64; O2SAT 100
== END 2023-12-29 09:28 | disposition home or self-care (01) ==
LOC: M OPP 07:24
PROVIDERS: ATTEND Surgery
DX: Z12.11 Encounter for screening for malignant neoplasm of colon (principal); D12.8 Benign neoplasm of rectum; K21.9 Gastro-esophageal reflux disease without esophagitis; Z86.010 Personal history of colon polyps; I10 Essential (primary) hypertension; E78.00 Pure hypercholesterolemia, unspecified; R32 Unspecified urinary incontinence; G47.33 Obstructive sleep apnea (adult) (pediatric); Z79.899 Other long term (current) drug therapy; Z79.82 Long term (current) use of aspirin

== ENCOUNTER → 2024-11-12 | Outpatient (REF) | payer MEDICARE, MEDICAID ==
[2024-11-12 12:31] LABS: BASO # 0.1 10^3/uL (0.0-0.2); BASO % 1.1 % (0.0-1.0); EOS # 0.3 10^3/uL (0.0-0.5); EOS % 3.6 % (0.0-3.0); HEMATOCRIT 39.3 % (36.0-47.0); HEMOGLOBIN 12.2 g/dl (12.0-15.5); LYMPH # 1.8 10^3/uL (1.5-5.0); LYMPH % 21.6 % (24.0-44.0); MEAN CORPUSCULAR HEMOGLOBIN 25.8 pg (27.0-33.0); MEAN CORPUSCULAR VOLUME 83.1 fl (80.0-96.0); MONO # 0.6 10^3/uL (0.0-0.8); MONO % 7.1 % (2.0-8.0); NEUTROPHILS # 5.4 10^3/uL (1.5-8.5); NEUTROPHILS % 66.2 % (36.0-66.0); PLATELET COUNT, AUTOMATED 329 10^3/uL (150-450); RED BLOOD COUNT 4.73 10^6/uL (4.00-5.40); WHITE BLOOD COUNT 8.1 10^3/uL (4.0-10.0)
[2024-11-12 13:00] LABS: ALBUMIN 3.4 G/DL (3.2-5.2); ALKALINE PHOSPHATASE 102 U/L (35-104); ALT/SGPT < 9 U/L (7.0-40); AST/SGOT 8 U/L (<34); BILIRUBIN,TOTAL 0.4 MG/DL (0.3-1.2); BLOOD UREA NITROGEN 12 MG/DL (9-23); CARBON DIOXIDE LEVEL 26 MMOL/L (20-31); CHLORIDE LEVEL 107 MMOL/L (98-107); CREATININE FOR GFR 1.01 MG/DL (0.55-1.30); FREE T4 1.27 NG/DL (0.89-1.76); GLOMERULAR FILTRATION RATE 58.9 (>45); GLUCOSE, FASTING 99 MG/DL (74-106); IRON (FE) 25 UG/DL (50-170); PERCENT SATURATION 8.1 % (13.2-45.0); POTASSIUM SERUM 4.2 MMOL/L (3.5-5.1); SODIUM LEVEL 145 MMOL/L (136-145); TOTAL IRON BINDING CAPACITY 308 UG/DL (250-425)
[2024-11-12 13:01] LABS: THYROID STIMULATING HORMONE 3.139 uIU/ML (0.55-4.78); TOTAL 25(OH) VITAMIN D 59.7 NG/ML (20.0-100.0)
== END ==
LOC: M SFHCCLAY 08:34
PROVIDERS: ATTEND Nurse Practitioner Family
DX: Z00.00 Encounter for general adult medical examination without abnormal findings (principal); E03.9 Hypothyroidism, unspecified; E55.9 Vitamin D deficiency, unspecified; E78.5 Hyperlipidemia, unspecified; N32.81 Overactive bladder; I10 Essential (primary) hypertension; Z13.1 Encounter for screening for diabetes mellitus; G47.33 Obstructive sleep apnea (adult) (pediatric); E61.1 Iron deficiency

== ENCOUNTER → 2024-12-21 | Outpatient (CLI) | payer MEDICARE, MEDICAID | LOC: M CLY 13:14 | PROVIDERS: ATTEND Nurse Practitioner Family | DX: J40 Bronchitis, not specified as acute or chronic (principal); Z53.9 Procedure and treatment not carried out, unspecified reason ==